=== PATIENT | female | born 1965 | race Caucasian/White ===

== ENCOUNTER 2017-02-17 17:58 | Emergency (ER) | payer MEDICARE ==
[~2017-02-17] VITALS: Ht 167.6 cm; Wt 74.1 kg
[2017-02-17] MEDS ORDERED: EXCETAB80 PO (18:20)
[2017-02-17] MEDS ORDERED: ASPI81CH32 PO (18:20)
[2017-02-17] MEDS ORDERED: NITROGLYCERIN 0.4 MG SUBL TABLET SL PRN (18:30)
[2017-02-17 18:46] LABS: BASO # 0.1 K/mm3 (0.0-0.2); BASO % 0.9 % (0.0-1.0); EOS # 0.2 K/mm3 (0.0-0.50); EOS % 2.4 % (0.0-3.0); LARGE UNSTAINED CELL # 0.1 K/mm3 (0.0-0.4); LARGE UNSTAINED CELL % 1.2 % (0.0-4.0); LYMPH # 2.5 K/mm3 (1.5-4.5); LYMPH % 26.9 % (24.0-44.0); MEAN CORPUSCULAR HEMOGLOBIN 30.4 pg (27.0-33.0); MEAN CORPUSCULAR HGB CONC 34.9 g/dl (32.0-36.5); MEAN CORPUSCULAR VOLUME 87.1 fl (80.0-96.0); MONO # 0.5 K/mm3 (0.0-0.8); MONO % 5.3 % (0.0-5.0); NEUTROPHILS # 5.5 K/mm3 (1.8-7.7); NEUTROPHILS % 63.3 % (36.0-66.0); PLATELET COUNT, AUTOMATED 187 k/mm3 (150-450); RED CELL DISTRIBUTION WIDTH 12.6 % (11.5-14.5); WHITE BLOOD COUNT 8.7 K/mm3 (4.0-10.0)
[2017-02-17] MEDS ORDERED: ATOR40TA75 PO (19:05)
[2017-02-17] MEDS ORDERED: METF10004 PO (19:05)
[2017-02-17] MEDS ORDERED: PROAAER10 (19:05)
[2017-02-17] MEDS ORDERED: GABA-282 PO (19:05)
[2017-02-17] MEDS ORDERED: VICO5TAB16 PO (19:06)
[2017-02-17] MEDS ORDERED: INSUDET SC (19:06)
[2017-02-17 19:09] LABS: ALBUMIN 3.8 GM/DL (3.2-5.2); ALBUMIN/GLOBULIN RATIO 1.15 (1.00-1.93); ALKALINE PHOSPHATASE 148 U/L (45-117); ALT/SGPT 26 U/L (12-78); ANION GAP 9 MEQ/L (8-16); AST/SGOT 10 U/L (15-37); BILIRUBIN,DIRECT < 0.1 MG/DL (0.0-0.2); BILIRUBIN,TOTAL 0.3 MG/DL (0.2-1.0); BLOOD UREA NITROGEN 18 MG/DL (7-18); CALCIUM LEVEL 8.9 MG/DL (8.5-10.1); CARBON DIOXIDE LEVEL 28 MEQ/L (21-32); CHLORIDE LEVEL 102 MEQ/L (98-107); CREATININE FOR GFR 0.82 MG/DL (0.55-1.02); GLOMERULAR FILTRATION RATE > 60.0 (>51); GLUCOSE, FASTING 244 MG/DL (70-105); SODIUM LEVEL 139 MEQ/L (136-145); TOTAL PROTEIN 7.1 GM/DL (6.4-8.2)
[2017-02-17] MEDS ORDERED: ISOVUE-370 76% 100ML VIAL (Q9967) As Ordered ONE (20:03)
[2017-02-17] MEDS ORDERED: ASPIRIN 81 MG CHEW TABLET PO ONE (20:15)
--- NOTE | 2017-02-17 21:20 | REPUSA ---
CLINICAL HISTORY: Chest pain. TECHNIQUE: CT chest with IV contrast. Total DLP 593.9 mGy*cm COMPARISON: No pertinent prior studies are available at this time. CT CHEST WITH CONTRAST: Pulmonary arteries: Patent, without emboli. Lungs: No pneumothorax, infiltrate, masses or effusion. Heart: Normal size. No significant effusion. Aorta: Normal caliber, without aneurysm or dissection. Mediastinum and maria teresa: No lymphadenopathy. Bony thorax: No acute findings. Spinal stimulator noted that thoracic spine. Limited upper abdomen: No acute findings. IMPRESSION: No evidence of pulmonary embolism. No acute thoracic process.
[2017-02-17 22:52] VITALS: BP 95/50
--- NOTE | 2017-02-18 07:54 | REP ---
Portable chest, 06:21 p.m., single AP view, patient sitting: Comparisons 04/11/2015. The lung vargas are clear. The cardiac size is normal. The maria teresa, mediastinum, and bony thorax are unremarkable. Impression: Negative portable chest. A spinal stimulator is incidentally noted at the mid thoracic level. Signed by Joe Echevarria MD 02/18/2017 07:45 A
--- NOTE | 2017-02-18 20:23 | ECGEPIP ---
Stationary ECG Study [facility] - ED Test Date: 2017-02-17 Pat Name: VISHAL PAZ Department: Room: - Gender: F Medical Detailist: RENETTA : 1965 Requested By: Rosamaria Hull Order Number: [id number] Reading MD: Rosamaria Hull Measurements Intervals [place] Rate: 85 P: 52 MT: 163 QRS: 49 QRSD: 90 T: 61 QT: 355 QTc: 423 Interpretive Statements SINUS RHYTHM NO PRIOR FOR COMPARISON Electronically Signed On 02-18-2017 20:22:42 EDT by Rosamaria Hull
== END 2017-02-17 23:54 | disposition home or self-care (01) ==
LOC: M ED 19:25
DX: R07.9 Chest pain, unspecified (principal); E11.9 Type 2 diabetes mellitus without complications; E78.5 Hyperlipidemia, unspecified; G89.29 Other chronic pain; F17.200 Nicotine dependence, unspecified, uncomplicated; Z98.1 Arthrodesis status; Z96.9 Presence of functional implant, unspecified; Z82.49 Family history of ischemic heart disease and other diseases of the circulatory system; Z79.4 Long term (current) use of insulin; Z79.82 Long term (current) use of aspirin; Z88.2 Allergy status to sulfonamides; Z88.8 Allergy status to other drugs, medicaments and biological substances; Z91.040 Latex allergy status
CPT/HCPCS: 36415; 71010; 71275; 80048; 80076; 82550; 82553; 82948; 83690; 83880; 84443; 84484; 85025; 93005; 93041; 94760; 99285; G0463; Q9967

== ENCOUNTER → 2017-12-03 | Outpatient (CLI) | payer MEDICARE | LOC: M LRY 10:29 | DX: S69.92XA Unspecified injury of left wrist, hand and finger(s), initial encounter (principal); X58.XXXA Exposure to other specified factors, initial encounter; Y92.9 Unspecified place or not applicable; Y93.9 Activity, unspecified | CPT/HCPCS: 73110; G0463 ==

== ENCOUNTER 2018-01-29 19:56 | Emergency (ER) | payer MEDICARE ==
[2018-01-29 21:16] LABS: APPEARANCE, URINE HAZY (CLEAR); BACTERIA, URINE AUTO 1+ (NEGATIVE); BILIRUBIN, URINE AUTO NEGATIVE (NEGATIVE); BLOOD, URINE BLOOD NEGATIVE (NEGATIVE); COLOR, URINE YELLOW (YELLOW); GLUCOSE, URINE (UA) AUTO 3+ mg/dL (NEGATIVE); KETONE, URINE AUTO NEGATIVE (NEGATIVE); LEUKOCYTE ESTERASE, URINE AUTO TRACE (NEGATIVE); MUCUS, URINE SMALL (NEGATIVE); NITRITE, URINE AUTO NEGATIVE (NEGATIVE); PROTEIN, URINE AUTO NEGATIVE (NEGATIVE); RBC, URINE AUTO 2 /HPF (0-3); SPECIFIC GRAVITY URINE AUTO 1.015 (1.002-1.035); SQUAMOUS EPITHELIAL CELL UR AU 3 /HPF (0-6); WBC, URINE AUTO 1 /HPF (0-3)
[2018-01-29] MEDS: ONDANSETRON 4MG/2ML VIAL (J2405) IV (21:34)
[2018-01-29] MEDS: NS 1,000 ML IV (21:34)
[2018-01-29 21:44] LABS: BASO % 0.3 % (0.0-1.0); EOS # 0.1 10^3/uL (0.0-0.50); EOS % 0.8 % (0.0-3.0); HEMATOCRIT 40.7 % (36.0-47.0); HEMOGLOBIN 14.1 g/dl (12.0-15.5); IMMATURE GRANULOCYTE % 0.3 % (0-3.0); LYMPH # 2.4 10^3/uL (1.5-4.5); LYMPH % 20.3 % (24.0-44.0); MEAN CORPUSCULAR HEMOGLOBIN 29.6 pg (27.0-33.0); MEAN CORPUSCULAR HGB CONC 34.6 g/dl (32.0-36.5); MEAN CORPUSCULAR VOLUME 85.3 fl (80.0-96.0); MONO # 0.8 10^3/uL (0.0-0.8); MONO % 7.1 % (0.0-5.0); NEUTROPHILS # 8.3 10^3/uL (1.8-7.7); NEUTROPHILS % 71.2 % (36.0-66.0); PLATELET COUNT, AUTOMATED 161 10^3/uL (150-450); RED BLOOD COUNT 4.77 10^6/uL (4.00-5.40); RED CELL DISTRIBUTION WIDTH 11.9 % (11.5-14.5); WHITE BLOOD COUNT 11.6 10^3/uL (4.0-10.0)
[2018-01-29 22:01] LABS: ANION GAP 5 MEQ/L (8-16); BLOOD UREA NITROGEN 13 MG/DL (7-18); C REACTIVE PROTEIN QUANTITATIV 5.42 MG/DL (0.00-0.30); CARBON DIOXIDE LEVEL 28 MEQ/L (21-32); CHLORIDE LEVEL 106 MEQ/L (98-107); CREATININE FOR GFR 0.77 MG/DL (0.55-1.30); GLOMERULAR FILTRATION RATE > 60.0 (>51); GLUCOSE, FASTING 188 MG/DL (70-100); POTASSIUM SERUM 3.7 MEQ/L (3.5-5.1); SODIUM LEVEL 139 MEQ/L (136-145)
[2018-01-29 22:08] LABS: ERYTHROCYTE SEDIMENTATION RATE 26 mm/hr (0-30)
[2018-01-29] MEDS ORDERED: LIDOCAINE 1% MDV 20ML VIAL As Ordered (22:16)
[2018-01-29] MEDS: LIDOCAINE 1% MDV 20ML VIAL SC (22:19)
[2018-01-29] MEDS: cefTRIAXone SOD 1 GM in D5W MINI-BAG PLUS 50 ML IV (23:03)
[2018-01-29] MEDS: ADACEL/BOOSTRIX VACCINE (DIPHTH/PERTUSS/ACELL/TETANUS)0.5ML SYR (90715) IM (23:05)
== END 2018-01-29 23:37 | disposition home or self-care (01) ==
LOC: M ED 19:56
DX: L02.612 Cutaneous abscess of left foot (principal); S90.852A Superficial foreign body, left foot, initial encounter; X58.XXXA Exposure to other specified factors, initial encounter; Y92.89 Other specified places as the place of occurrence of the external cause; E11.9 Type 2 diabetes mellitus without complications; F17.200 Nicotine dependence, unspecified, uncomplicated; Z88.8 Allergy status to other drugs, medicaments and biological substances; Z88.2 Allergy status to sulfonamides; Z91.040 Latex allergy status; Z79.82 Long term (current) use of aspirin
CPT/HCPCS: 90715

== ENCOUNTER → 2018-01-30 | Outpatient (REF) | payer MEDICARE | LOC: M LAB REF 17:11 | DX: L03.116 Cellulitis of left lower limb (principal) ==

== ENCOUNTER 2018-02-01 23:52 | Inpatient (IN) | payer MEDICARE ==
[2018-02-02 00:58] LABS: HEMATOCRIT 38.4 % (36.0-47.0); HEMOGLOBIN 13.2 g/dl (12.0-15.5); MEAN CORPUSCULAR HEMOGLOBIN 29.3 pg (27.0-33.0); MEAN CORPUSCULAR HGB CONC 34.4 g/dl (32.0-36.5); MEAN CORPUSCULAR VOLUME 85.1 fl (80.0-96.0); PLATELET COUNT, AUTOMATED 190 10^3/uL (150-450); RED BLOOD COUNT 4.51 10^6/uL (4.00-5.40); RED CELL DISTRIBUTION WIDTH 11.7 % (11.5-14.5); WHITE BLOOD COUNT 9.2 10^3/uL (4.0-10.0)
[2018-02-02] MEDS: MORPHINE 4 MG/ML 1ML VIAL/SYRINGE (J2270) IV ×3 (01:03→23:16)
[2018-02-02] MEDS: ONDANSETRON 4MG/2ML VIAL (J2405) IV (01:04)
[2018-02-02] MEDS: VANCOMYCIN HCL 1,000 MG, VIAL MATE ADAPTER 1 EACH in D5W 250 ML IV ×2 (01:04→12:19)
[2018-02-02 01:23] LABS: ERYTHROCYTE SEDIMENTATION RATE 58 mm/hr (0-30)
[2018-02-02 01:26] LABS: ANION GAP 6 MEQ/L (8-16); BLOOD UREA NITROGEN 13 MG/DL (7-18); C REACTIVE PROTEIN QUANTITATIV 6.68 MG/DL (0.00-0.30); CALCIUM LEVEL 9.1 MG/DL (8.5-10.1); CARBON DIOXIDE LEVEL 27 MEQ/L (21-32); CHLORIDE LEVEL 104 MEQ/L (98-107); GLOMERULAR FILTRATION RATE > 60.0 (>51); GLUCOSE, FASTING 231 MG/DL (70-100); POTASSIUM SERUM 3.7 MEQ/L (3.5-5.1); SODIUM LEVEL 137 MEQ/L (136-145)
[2018-02-02] MEDS ORDERED: GLUCOSE 4 GM CHEW TABLET PO (02:15)
[2018-02-02] MEDS ORDERED: GLUCAGON FOR INJ 1 MG VIAL (J1610) SC (02:15)
[2018-02-02] MEDS ORDERED: DEXTROSE 50% 50 ML SYRINGE IV (02:15)
[2018-02-02] MEDS: NS 1,000 ML IV ×2 (04:21→12:19)
[2018-02-02] MEDS: PIPERACILLIN/TAZOBACTAM SOD 3.375 GM in D5W MINI-BAG PLUS 50 ML IV ×4 (04:21→22:05)
[2018-02-02] MEDS: ACETAMINOPHEN TAB 650MG DOSE (2X325MG) PO ×2 (04:47→11:06)
[2018-02-02 06:47] LABS: BEDSIDE GLUCOSE 202 MG/DL (70-105)
[2018-02-02] MEDS: HumaLOG INSULIN (NovoLOG) PER UNIT SC ×3 (07:30→17:30)
[2018-02-02] MEDS: LEVEMIR (INSULIN DETEMIR) 1 UNITS/0.01ML SC ×2 (07:44→22:07)
[2018-02-02] MEDS ORDERED: MIDAZOLAM INJ 2 MG/2 ML VIAL (J2250) As Ordered (08:38)
[2018-02-02] MEDS ORDERED: fentaNYL 100 MCG/2 ML INJECTION (J3010) As Ordered (08:38)
[2018-02-02] MEDS ORDERED: PROPOFOL 200 MG/20 ML VIAL As Ordered (08:38)
[2018-02-02] MEDS ORDERED: LIDOCAINE 2% INJ 100 MG/5 ML SDV (FOR ANES.) As Ordered (08:38)
[2018-02-02] MEDS ORDERED: ONDANSETRON 4MG/2ML VIAL (J2405) As Ordered (08:38)
[2018-02-02] MEDS: BUPIVACAINE HCL 0.5% 10 ML VIAL As Ordered (08:39)
[2018-02-02] MEDS: LIDOCAINE 1% MDV 20ML VIAL As Ordered (08:39)
[2018-02-02] MEDS ORDERED: PHENYLEPHRINE INJ 10MG/ML VIAL (J2370) As Ordered (08:42)
[2018-02-02] MEDS: ENOXAPARIN 40 MG/0.4 ML SYRINGE (J1650) SC (09:00)
[2018-02-02] MEDS ORDERED: fentaNYL 100 MCG/2 ML INJECTION (J3010) IV (09:45)
[2018-02-02] MEDS ORDERED: ONDANSETRON 4MG/2ML VIAL (J2405) IV (09:45)
[2018-02-02] MEDS: LR 1,000 ML IV (09:45)
[2018-02-02] MEDS ORDERED: NORCO, ANEXSIA 5/325MG TABLET (HYDROcodone/ACETAMINOPHEN) PO (09:45)
[2018-02-02 11:14] LABS: BEDSIDE GLUCOSE 197 MG/DL (70-105)
[2018-02-02] MEDS: PERCOCET 5MG/325MG TAB PO ×3 (15:25→22:06)
[2018-02-02] MEDS: NICOTINE 14 MG/24 HR TRANSDERMAL TD (16:00)
[2018-02-02 17:12] LABS: BEDSIDE GLUCOSE 195 MG/DL (70-105)
[2018-02-02 19:46] LABS: BEDSIDE GLUCOSE 134 MG/DL (70-105)
[2018-02-03] MEDS: VANCOMYCIN HCL 1,000 MG, VIAL MATE ADAPTER 1 EACH in D5W 250 ML IV ×2 (01:31→14:58)
[2018-02-03] MEDS: PIPERACILLIN/TAZOBACTAM SOD 3.375 GM in D5W MINI-BAG PLUS 50 ML IV ×4 (02:38→20:00)
[2018-02-03] MEDS: PERCOCET 5MG/325MG TAB PO ×3 (02:40→20:01)
[2018-02-03 06:35] LABS: HEMATOCRIT 35.2 % (36.0-47.0); HEMOGLOBIN 12.2 g/dl (12.0-15.5); MEAN CORPUSCULAR HEMOGLOBIN 29.5 pg (27.0-33.0); MEAN CORPUSCULAR HGB CONC 34.7 g/dl (32.0-36.5); PLATELET COUNT, AUTOMATED 177 10^3/uL (150-450); RED BLOOD COUNT 4.14 10^6/uL (4.00-5.40); RED CELL DISTRIBUTION WIDTH 11.6 % (11.5-14.5)
[2018-02-03 06:53] LABS: ANION GAP 5 MEQ/L (8-16); BLOOD UREA NITROGEN 10 MG/DL (7-18); C REACTIVE PROTEIN QUANTITATIV 7.13 MG/DL (0.00-0.30); CALCIUM LEVEL 9.1 MG/DL (8.5-10.1); CARBON DIOXIDE LEVEL 30 MEQ/L (21-32); CHLORIDE LEVEL 105 MEQ/L (98-107); CREATININE FOR GFR 0.76 MG/DL (0.55-1.30); GLOMERULAR FILTRATION RATE > 60.0 (>51); GLUCOSE, FASTING 139 MG/DL (70-100); POTASSIUM SERUM 3.8 MEQ/L (3.5-5.1); SODIUM LEVEL 140 MEQ/L (136-145)
[2018-02-03 07:07] LABS: ERYTHROCYTE SEDIMENTATION RATE 58 mm/hr (0-30)
[2018-02-03] MEDS: HumaLOG INSULIN (NovoLOG) PER UNIT SC ×3 (08:31→17:19)
[2018-02-03 08:50] LABS: BEDSIDE GLUCOSE 137 MG/DL (70-105)
[2018-02-03] MEDS: ENOXAPARIN 40 MG/0.4 ML SYRINGE (J1650) SC (10:42)
[2018-02-03] MEDS: LEVEMIR (INSULIN DETEMIR) 1 UNITS/0.01ML SC ×2 (10:42→20:04)
[2018-02-03] MEDS: NICOTINE 14 MG/24 HR TRANSDERMAL TD (10:43)
[2018-02-03] MEDS: NICOTINE 21MG/24HR 1 EA TRANSDERMAL TD (11:44)
[2018-02-03 12:20] LABS: BEDSIDE GLUCOSE 187 MG/DL (70-105)
[2018-02-03 12:47] LABS: VANCOMYCIN LEVEL TROUGH 10.8 UG/ML (10.0-20.0)
[2018-02-03] MEDS: VANCOMYCIN HCL 500 MG in D5W MINI-BAG PLUS 100 ML IV (15:59)
[2018-02-03 16:52] LABS: BEDSIDE GLUCOSE 153 MG/DL (70-105)
[2018-02-03 20:16] LABS: BEDSIDE GLUCOSE 78 MG/DL (70-105)
[2018-02-04] MEDS: PERCOCET 5MG/325MG TAB PO (01:34)
[2018-02-04] MEDS: VANCOMYCIN HCL 1,000 MG, VIAL MATE ADAPTER 1 EACH in D5W 250 ML IV (01:36)
[2018-02-04] MEDS: PIPERACILLIN/TAZOBACTAM SOD 3.375 GM in D5W MINI-BAG PLUS 50 ML IV ×2 (02:44→08:39)
[2018-02-04 05:56] LABS: HEMATOCRIT 38.6 % (36.0-47.0); HEMOGLOBIN 13.1 g/dl (12.0-15.5); MEAN CORPUSCULAR HEMOGLOBIN 29.1 pg (27.0-33.0); MEAN CORPUSCULAR HGB CONC 33.9 g/dl (32.0-36.5); MEAN CORPUSCULAR VOLUME 85.8 fl (80.0-96.0); PLATELET COUNT, AUTOMATED 221 10^3/uL (150-450); RED CELL DISTRIBUTION WIDTH 11.6 % (11.5-14.5); WHITE BLOOD COUNT 6.8 10^3/uL (4.0-10.0)
[2018-02-04 06:11] LABS: ANION GAP 7 MEQ/L (8-16); BLOOD UREA NITROGEN 13 MG/DL (7-18); CALCIUM LEVEL 9.2 MG/DL (8.5-10.1); CARBON DIOXIDE LEVEL 31 MEQ/L (21-32); CHLORIDE LEVEL 103 MEQ/L (98-107); CREATININE FOR GFR 0.85 MG/DL (0.55-1.30); GLOMERULAR FILTRATION RATE > 60.0 (>51); GLUCOSE, FASTING 169 MG/DL (70-100); SODIUM LEVEL 141 MEQ/L (136-145)
[2018-02-04 06:33] LABS: ERYTHROCYTE SEDIMENTATION RATE 60 mm/hr (0-30)
[2018-02-04] MEDS: ENOXAPARIN 40 MG/0.4 ML SYRINGE (J1650) SC (08:37)
[2018-02-04] MEDS: HumaLOG INSULIN (NovoLOG) PER UNIT SC (08:38)
[2018-02-04] MEDS: NICOTINE 21MG/24HR 1 EA TRANSDERMAL TD (08:39)
[2018-02-04] MEDS: LEVEMIR (INSULIN DETEMIR) 1 UNITS/0.01ML SC (08:39)
[2018-02-04 11:38] LABS: BEDSIDE GLUCOSE 125 MG/DL (70-105)
== END 2018-02-04 13:55 | disposition home or self-care (01) | DRG 603 ==
LOC: M ED 23:52 → M ED INP 02-02 02:10 → M MS5PR 02-02 04:00
PROC: 0H9MXZZ Drainage of Right Foot Skin, External Approach (ICD-10-PCS; principal; 2018-02-02 08:29)
DX: L03.116 Cellulitis of left lower limb (principal); E11.65 Type 2 diabetes mellitus with hyperglycemia; F17.210 Nicotine dependence, cigarettes, uncomplicated; B95.61 Methicillin susceptible Staphylococcus aureus infection as the cause of diseases classified elsewhere; B95.2 Enterococcus as the cause of diseases classified elsewhere; Z91.040 Latex allergy status; Z88.2 Allergy status to sulfonamides; Z79.84 Long term (current) use of oral hypoglycemic drugs; Z88.8 Allergy status to other drugs, medicaments and biological substances

== ENCOUNTER → 2018-02-14 | Outpatient (REF) | payer MEDICARE ==
[2018-02-14 19:08] LABS: ESTIMATED AVERAGE GLUCOSE 237 MG/DL (60-110); HEMOGLOBIN A1c 9.9 %
[2018-02-14 19:30] LABS: CREATININE, URINE 95.3 MG/DL; MALB URINE SIEMENS 12.7 MG/L; MAU/CREAT RATIO 13.3 MCG/MG (0.0-30.0)
== END ==
LOC: M SFHCPLAZ 15:24
DX: R73.9 Hyperglycemia, unspecified (principal)
CPT/HCPCS: 83036

== ENCOUNTER → 2018-02-24 | Outpatient (CLI) | payer MEDICARE | LOC: M CARPUL 14:06 | DX: F17.200 Nicotine dependence, unspecified, uncomplicated (principal) | CPT/HCPCS: 94060 ==

== ENCOUNTER → 2018-03-21 | Outpatient (REF) | payer MEDICARE ==
[2018-03-21 12:50] LABS: CHOLESTEROL LEVEL 252 MG/DL (<200); HDL CHOLESTEROL 40 MG/DL (>40); LDL CHOLESTEROL 170 MG/DL (<100); NON-HDL-C 212 MG/DL; TRIGLYCERIDES LEVEL 209 MG/DL (<150)
[2018-03-24 14:17] LABS: C-PEPTIDE 4.2 ng/mL (1.1-4.4)
[2018-03-24 14:17] LABS: GAD-65 AUTOANTIBODY <5.0 U/mL (0.0-5.0)
== END ==
LOC: M SFHCPLAZ 07:58
DX: R73.9 Hyperglycemia, unspecified (principal)
CPT/HCPCS: 80061

== ENCOUNTER 2018-03-28 17:29 | Emergency (ER) | payer MEDICARE ==
[2018-03-28] MEDS: METOCLOPRAMIDE INJ 10MG/2ML VIAL (J2765) IV (21:49)
[2018-03-28] MEDS: KETOROLAC 30 MG/ML VIAL (J1885) IV (21:49)
[2018-03-28 21:54] LABS: BASO % 0.1 % (0.0-1.0); EOS # 0.2 10^3/uL (0.0-0.50); EOS % 2.7 % (0.0-3.0); HEMATOCRIT 35.7 % (36.0-47.0); HEMOGLOBIN 12.2 g/dl (12.0-15.5); IMMATURE GRANULOCYTE % 0.1 % (0-3.0); LYMPH # 2.2 10^3/uL (1.5-4.5); LYMPH % 32.9 % (24.0-44.0); MEAN CORPUSCULAR HEMOGLOBIN 29.5 pg (27.0-33.0); MEAN CORPUSCULAR HGB CONC 34.2 g/dl (32.0-36.5); MEAN CORPUSCULAR VOLUME 86.2 fl (80.0-96.0); MONO # 0.5 10^3/uL (0.0-0.8); NEUTROPHILS # 3.8 10^3/uL (1.8-7.7); NEUTROPHILS % 57.2 % (36.0-66.0); PLATELET COUNT, AUTOMATED 216 10^3/uL (150-450); RED BLOOD COUNT 4.14 10^6/uL (4.00-5.40); RED CELL DISTRIBUTION WIDTH 12.5 % (11.5-14.5); WHITE BLOOD COUNT 6.7 10^3/uL (4.0-10.0)
[2018-03-28 22:23] LABS: ANION GAP 6 MEQ/L (8-16); BLOOD UREA NITROGEN 11 MG/DL (7-18); C REACTIVE PROTEIN QUANTITATIV 0.62 MG/DL (0.00-0.30); CALCIUM LEVEL 8.5 MG/DL (8.5-10.1); CARBON DIOXIDE LEVEL 29 MEQ/L (21-32); CHLORIDE LEVEL 108 MEQ/L (98-107); CREATININE FOR GFR 0.65 MG/DL (0.55-1.30); GLOMERULAR FILTRATION RATE > 60.0 (>51); GLUCOSE, FASTING 195 MG/DL (70-100); POTASSIUM SERUM 3.6 MEQ/L (3.5-5.1); SODIUM LEVEL 143 MEQ/L (136-145)
[2018-03-28 22:40] LABS: ERYTHROCYTE SEDIMENTATION RATE 27 mm/hr (0-30)
== END 2018-03-28 23:50 | disposition home or self-care (01) ==
LOC: M ED 17:29
DX: L03.116 Cellulitis of left lower limb (principal); R51 Headache; E11.9 Type 2 diabetes mellitus without complications; J45.909 Unspecified asthma, uncomplicated; J44.9 Chronic obstructive pulmonary disease, unspecified; Z87.442 Personal history of urinary calculi; Z87.39 Personal history of other diseases of the musculoskeletal system and connective tissue; Z79.82 Long term (current) use of aspirin; Z79.84 Long term (current) use of oral hypoglycemic drugs; Z79.899 Other long term (current) drug therapy; Z91.040 Latex allergy status; Z88.2 Allergy status to sulfonamides; Z88.8 Allergy status to other drugs, medicaments and biological substances; Z88.1 Allergy status to other antibiotic agents; Z88.6 Allergy status to analgesic agent
CPT/HCPCS: J1885

== ENCOUNTER 2018-04-11 13:33 | Emergency (ER) | payer MEDICARE ==
[2018-04-11] MEDS: NS 1,000 ML IV ×2 (15:18→18:00)
[2018-04-11] MEDS: MORPHINE 2 MG/ML 1ML SYRINGE (J2270) IV (15:19)
[2018-04-11] MEDS: ONDANSETRON 4MG/2ML VIAL (J2405) IV (15:19)
[2018-04-11 15:44] LABS: BASO % 0.5 % (0.0-1.0); EOS # 0.1 10^3/uL (0.0-0.50); EOS % 1.6 % (0.0-3.0); HEMATOCRIT 35.9 % (36.0-47.0); HEMOGLOBIN 12.1 g/dl (12.0-15.5); IMMATURE GRANULOCYTE % 0.4 % (0-3.0); LYMPH # 1.9 10^3/uL (1.5-4.5); LYMPH % 25.6 % (24.0-44.0); MEAN CORPUSCULAR HEMOGLOBIN 29.2 pg (27.0-33.0); MEAN CORPUSCULAR HGB CONC 33.7 g/dl (32.0-36.5); MEAN CORPUSCULAR VOLUME 86.5 fl (80.0-96.0); MONO # 0.4 10^3/uL (0.0-0.8); MONO % 5.8 % (0.0-5.0); NEUTROPHILS % 66.1 % (36.0-66.0); PLATELET COUNT, AUTOMATED 213 10^3/uL (150-450); RED BLOOD COUNT 4.15 10^6/uL (4.00-5.40); RED CELL DISTRIBUTION WIDTH 12.5 % (11.5-14.5); WHITE BLOOD COUNT 7.6 10^3/uL (4.0-10.0)
[2018-04-11 15:56] LABS: ALBUMIN 3.8 GM/DL (3.2-5.2); ALBUMIN/GLOBULIN RATIO 1.23 (1.00-1.93); ALKALINE PHOSPHATASE 145 U/L (45-117); ALT/SGPT 19 U/L (12-78); ANION GAP 7 MEQ/L (8-16); AST/SGOT 12 U/L (7-37); BILIRUBIN,DIRECT 0.1 MG/DL (0.0-0.2); BILIRUBIN,TOTAL 0.4 MG/DL (0.2-1.0); BLOOD UREA NITROGEN 16 MG/DL (7-18); CALCIUM LEVEL 9.4 MG/DL (8.5-10.1); CARBON DIOXIDE LEVEL 28 MEQ/L (21-32); CHLORIDE LEVEL 105 MEQ/L (98-107); GLOMERULAR FILTRATION RATE > 60.0 (>51); GLUCOSE, FASTING 145 MG/DL (70-100); LIPASE 132 U/L (73-393); POTASSIUM SERUM 4.5 MEQ/L (3.5-5.1); SODIUM LEVEL 140 MEQ/L (136-145); TOTAL PROTEIN 6.9 GM/DL (6.4-8.2)
[2018-04-11 15:57] LABS: LACTIC ACID SEPSIS PROTOCOL 0.5 MMOL/L (0.4-2.0)
[2018-04-11] MEDS: GASTROGRAFIN SOLUTION 30ML PO ×2 (15:57→16:30)
[2018-04-11] MEDS ORDERED: ISOVUE-370 76% 100ML VIAL (Q9967) As Ordered (17:12)
== END 2018-04-11 19:11 | disposition home or self-care (01) ==
LOC: M ED 13:33
DX: C48.2 Malignant neoplasm of peritoneum, unspecified (principal); E11.9 Type 2 diabetes mellitus without complications; F17.220 Nicotine dependence, chewing tobacco, uncomplicated
CPT/HCPCS: Q9963

== ENCOUNTER → 2018-04-15 | Outpatient (REF) | payer MEDICARE ==
[2018-04-15 15:12] LABS: CA19-9 TUMOR MARKER,CARBOHYDRA < 1.2 U/ML (<35.0)
[2018-04-15 15:12] LABS: CA 125 819.6 U/ML (<30.2)
== END ==
LOC: M SFHCPLAZ 10:18
DX: C80.1 Malignant (primary) neoplasm, unspecified (principal); C78.6 Secondary malignant neoplasm of retroperitoneum and peritoneum; Z79.82 Long term (current) use of aspirin; Z79.899 Other long term (current) drug therapy; Z79.84 Long term (current) use of oral hypoglycemic drugs; E11.9 Type 2 diabetes mellitus without complications; E78.5 Hyperlipidemia, unspecified; J44.9 Chronic obstructive pulmonary disease, unspecified; F41.9 Anxiety disorder, unspecified
CPT/HCPCS: 82378

== ENCOUNTER → 2018-04-16 | Outpatient (CLI) | payer MEDICARE ==
[~2018-04-16] MED LIST: ISOVUE-370 76% 100ML VIAL (Q9967) As Ordered
== END ==
LOC: M RAD 17:12
DX: C80.1 Malignant (primary) neoplasm, unspecified (principal); K76.0 Fatty (change of) liver, not elsewhere classified; Z88.1 Allergy status to other antibiotic agents; Z88.5 Allergy status to narcotic agent; Z91.040 Latex allergy status; Z96.89 Presence of other specified functional implants
CPT/HCPCS: Q9967

== ENCOUNTER 2018-04-17 11:38 | Day surgery (SDC) | payer MEDICARE ==
[2018-04-17] MEDS: NS 1,000 ML IV ×2 (06:00)
[2018-04-17] MEDS ORDERED: PROPOFOL 200 MG/20 ML VIAL As Ordered ×6 (12:05→13:31)
[2018-04-17] MEDS ORDERED: LIDOCAINE 2% INJ 100 MG/5 ML SDV (FOR ANES.) As Ordered ×2 (12:05)
[2018-04-17] MEDS ORDERED: fentaNYL 100 MCG/2 ML INJECTION (J3010) As Ordered ×2 (12:05)
== END 2018-04-17 14:40 | disposition home or self-care (01) ==
LOC: M OPP 14:40
DX: R93.3 Abnormal findings on diagnostic imaging of other parts of digestive tract (principal); R10.30 Lower abdominal pain, unspecified; C80.1 Malignant (primary) neoplasm, unspecified; K59.00 Constipation, unspecified; R19.4 Change in bowel habit; R11.2 Nausea with vomiting, unspecified; Q43.8 Other specified congenital malformations of intestine; K29.70 Gastritis, unspecified, without bleeding; R07.89 Other chest pain; I10 Essential (primary) hypertension; E78.5 Hyperlipidemia, unspecified; E11.9 Type 2 diabetes mellitus without complications; M19.90 Unspecified osteoarthritis, unspecified site; G62.9 Polyneuropathy, unspecified; R51 Headache; Z97.8 Presence of other specified devices; Z78.0 Asymptomatic menopausal state; J45.909 Unspecified asthma, uncomplicated; J44.9 Chronic obstructive pulmonary disease, unspecified; L97.529 Non-pressure chronic ulcer of other part of left foot with unspecified severity; L03.116 Cellulitis of left lower limb; F17.210 Nicotine dependence, cigarettes, uncomplicated; Z88.1 Allergy status to other antibiotic agents; Z91.040 Latex allergy status; Z88.2 Allergy status to sulfonamides; Z79.82 Long term (current) use of aspirin; Z79.84 Long term (current) use of oral hypoglycemic drugs; Z79.899 Other long term (current) drug therapy
CPT/HCPCS: 45378

== ENCOUNTER → 2018-04-17 | Outpatient (CLI) | payer MEDICARE ==
[2018-04-17 15:02] LABS: INR 1.06; PROTHROMBIN TIME 13.9 SECONDS (12.1-14.4)
[2018-04-17 15:03] LABS: PARTIAL THROMBOPLASTIN TIME 29.2 SECONDS (25.4-37.6)
== END ==
LOC: M LAB 08:00
DX: R93.3 Abnormal findings on diagnostic imaging of other parts of digestive tract (principal); C80.1 Malignant (primary) neoplasm, unspecified (principal)

== ENCOUNTER → 2018-04-18 | Outpatient (CLI) | payer MEDICARE ==
[~2018-04-18] MED LIST changes: -ISOVUE-370 76% 100ML VIAL (Q9967) As Ordered; +LIQUID POLIBAR PLUS 105% w/v 1900ML BTL As Ordered
== END ==
LOC: M RAD 09:09
DX: R93.3 Abnormal findings on diagnostic imaging of other parts of digestive tract (principal); K59.00 Constipation, unspecified
CPT/HCPCS: 74280

== ENCOUNTER → 2018-04-21 | Outpatient (CLI) | payer MEDICARE ==
[~2018-04-21] MED LIST changes: +GASTROGRAFIN SOLUTION 30ML (Q9963) As Ordered; -LIQUID POLIBAR PLUS 105% w/v 1900ML BTL As Ordered
== END ==
LOC: M RAD 16:19
DX: C80.1 Malignant (primary) neoplasm, unspecified (principal)

== ENCOUNTER → 2018-04-23 | Outpatient (CLI) | payer MEDICARE ==
[~2018-04-23] MED LIST changes: -GASTROGRAFIN SOLUTION 30ML (Q9963) As Ordered; +LIDOCAINE 1% MDV 20ML VIAL As Ordered
== END ==
LOC: M RADPRO 07:08
DX: C48.2 Malignant neoplasm of peritoneum, unspecified (principal); C78.6 Secondary malignant neoplasm of retroperitoneum and peritoneum; E11.9 Type 2 diabetes mellitus without complications; E78.5 Hyperlipidemia, unspecified; J44.9 Chronic obstructive pulmonary disease, unspecified; E55.9 Vitamin D deficiency, unspecified; F17.210 Nicotine dependence, cigarettes, uncomplicated; F41.9 Anxiety disorder, unspecified; Z79.82 Long term (current) use of aspirin; Z79.899 Other long term (current) drug therapy; Z79.891 Long term (current) use of opiate analgesic; Z79.84 Long term (current) use of oral hypoglycemic drugs; Z88.8 Allergy status to other drugs, medicaments and biological substances; Z91.040 Latex allergy status
CPT/HCPCS: 49180

== ENCOUNTER → 2018-06-19 | Outpatient (REF) | payer MEDICARE ==
[~2018-06-19] MED LIST changes: +APAP500T10 PO; +ASPI81CH32 PO; +ATOR40TA75 PO; +CEPH500C PO; +CLEO300C2 PO; +EXCETAB80 PO; +GABA-843 PO; +IBUP-1114 PO; +INSUDET SC; +KEFL500C17 PO; -LIDOCAINE 1% MDV 20ML VIAL As Ordered; +METF10004 PO; +METF500T13 PO; +NORCOTAB PO; +OXYC1TAB23 PO; +PROAAER10; +VICO5TAB16 PO
[2018-06-19 18:57] LABS: BLOOD UREA NITROGEN 19 MG/DL (7-18); CALCIUM LEVEL 9.7 MG/DL (8.5-10.1); CARBON DIOXIDE LEVEL 31 MEQ/L (21-32); CHLORIDE LEVEL 96 MEQ/L (98-107); CREATININE FOR GFR 0.98 MG/DL (0.55-1.30); GLOMERULAR FILTRATION RATE > 60.0 (>51); POTASSIUM SERUM 4.1 MEQ/L (3.5-5.1); SODIUM LEVEL 135 MEQ/L (136-145)
[2018-06-19 18:58] LABS: GLUCOSE, FASTING 409 MG/DL (70-100)
[2018-06-19 19:37] LABS: HEMOGLOBIN A1c 10.5 %
== END ==
LOC: M SFHCPLAZ 14:50
DX: R73.9 Hyperglycemia, unspecified (principal); Z11.59 Encounter for screening for other viral diseases
CPT/HCPCS: 36415; 80048; 83036; 86803; G0463

== ENCOUNTER → 2018-10-15 | Outpatient (CLI) | payer MEDICARE ==
[~2018-10-15] MED LIST changes: -ASPI81CH32 PO; +ASPI81CH33 PO; +GASTROGRAFIN SOLUTION 30ML (Q9963) As Ordered ONE; +HYDR-3715 PO; +ISOVUE-370 76% 100ML VIAL (Q9967) As Ordered ONE; -NORCOTAB PO; -VICO5TAB16 PO; +VICO5TAB17 PO
--- NOTE | 2018-10-15 09:51 | REP ---
CT of the chest with IV contrast for ovarian carcinoma, post-treatment: Comparison is 04/16/2018. There is an epidural spinal stimulator, unchanged. There are no lung masses or nodules. There are no infiltrates. There are no pleural effusions. There is no mediastinal, hilar or axillary lymph node enlargement. The thoracic aorta is unremarkable. Cardiac size is normal. There is no pericardial effusion. There are no lytic, blastic or destructive skeletal changes. Impression: Epidural spinal stimulator, unchanged. Otherwise, negative CT study of the chest. No evidence of metastatic disease. There is no interval change. Electronically Signed by Joe Echevarria MD 10/15/2018 09:43 A
--- NOTE | 2018-10-15 10:04 | REP ---
CT of the abdomen and pelvis with IV and oral contrast for follow up of ovarian carcinoma, post-treatment: Comparison is 04/11/2018. The the hepatic parenchyma is homogeneous. The gallbladder, pancreas and spleen are unchanged and unremarkable. A calcified splenic granuloma is incidentally identified, unchanged. The adrenals are unremarkable. The kidneys are unremarkable except for focal renal cortical atrophy of the right renal mid pole, unchanged, likely sequela of prior pyelonephritis or renal infarct. There is mild bilateral hydronephrosis, unchanged. No hydroureter. This is unchanged. The abdominal aorta is unremarkable except for occasional calcified atheroma. There are a few normal-sized periaortic nodes. No periaortic lymph node enlargement. This is unchanged. Pelvis: The previous pattern of infiltrating enhancing inflammatory tissue in the peritoneal reflections, cul-de-sac and adjacent to the sigmoid colon in the right and left pelvis has resolved. The previous multiple enhancing peritoneal nodules have resolved. The The uterus has either become markedly atrophic in the interim or is now surgically absent. The adnexa are unremarkable. The bladder is unremarkable. There is no pelvic adenopathy. There is no ascites. The The there is a there is a spinal stimulator generator pack in the left gluteal subcutaneous soft tissues, unchanged. There are no lytic, blastic or destructive skeletal changes. Impression: The infiltrative pattern of inflammation and enhancing tissue in the peritoneal reflections and cul-de-sac on the previous study have resolved. The multiple peritoneal implants on the previous study have resolved. There is no lymph node enlargement. There is no ascites. No other changes from the prior study. Electronically Signed by Joe Echevarria MD 10/15/2018 09:56 A
== END ==
LOC: M RAD 07:02
PROVIDERS: ATTEND Obstetrics & Gynecology Gynecologic Oncology
DX: C56.9 Malignant neoplasm of unspecified ovary (principal); Z96.9 Presence of functional implant, unspecified
CPT/HCPCS: 71260; 74177; Q9963; Q9967

== ENCOUNTER → 2018-10-16 | Outpatient (REF) | payer MEDICARE ==
[~2018-10-16] MED LIST changes: -GASTROGRAFIN SOLUTION 30ML (Q9963) As Ordered ONE; -ISOVUE-370 76% 100ML VIAL (Q9967) As Ordered ONE
[2018-10-16 17:38] LABS: BLOOD UREA NITROGEN 13 MG/DL (7-18); CALCIUM LEVEL 9.3 MG/DL (8.5-10.1); CARBON DIOXIDE LEVEL 29 MEQ/L (21-32); CHLORIDE LEVEL 105 MEQ/L (98-107); CREATININE FOR GFR 0.76 MG/DL (0.55-1.30); GLOMERULAR FILTRATION RATE > 60.0 (>51); GLUCOSE, FASTING 236 MG/DL (70-100); POTASSIUM SERUM 4.3 MEQ/L (3.5-5.1); SODIUM LEVEL 140 MEQ/L (136-145)
[2018-10-16 17:55] LABS: HEMOGLOBIN A1c 7.9 %
== END ==
LOC: M SFHCPLAZ 14:03
PROVIDERS: ATTEND Family Medicine
DX: E11.65 Type 2 diabetes mellitus with hyperglycemia (principal)
CPT/HCPCS: 36415; 80048; 83036; G0463

== ENCOUNTER → 2018-10-29 | Outpatient (CLI) | payer MEDICARE ==
--- NOTE | 2018-10-29 16:22 | REP ---
CT study left foot without contrast: History: Left foot pain. Comparison radiographs March 28, 2018. Comparison CT study March 28, 2018. CT technique: Helical scanning is acquired. 3 mm axial images are generated and reviewed. CT findings: Ankylosis of the distal tibiofibular articulation is again noted unchanged from comparison study. There is tibiotalar osteoarthritic spurring. Chondrocalcinosis is noted medially in the tibiotalar articulation. This is unchanged as well. The subtalar joint is intact. There is plantar and Achilles calcaneal spurring. There is no evidence of soft tissue abscess or soft tissue gas. No acute bony erosive changes seen to suggest osteomyelitis based on CT. The plantar re-formation images show no additional abnormality. A there is less diffuse swelling than was present on March 28, 2018. 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 Heel spurring. No soft tissue gas or abscess seen. No bony tear destructive or erosive change noted. Diffuse osteopenia. Electronically Signed by Conner Wilson MD 10/29/2018 04:31 P
== END ==
LOC: M RAD 14:03
PROVIDERS: ATTEND Internal Medicine
DX: M24.672 Ankylosis, left ankle (principal); M19.072 Primary osteoarthritis, left ankle and foot; M77.32 Calcaneal spur, left foot; M85.862 Other specified disorders of bone density and structure, left lower leg

== ENCOUNTER 2018-11-24 09:25 | Outpatient (CLI) | payer MEDICARE ==
[~2018-11-24] VITALS: Ht 152.4 cm; Wt 68.5 kg
[2018-11-24 08:30] VITALS: BP 102/71
[~2018-11-24 09:25] MED LIST changes: +SODIUM CHLORIDE 0.9% INJ 10 ML SYR IV SCH
== END 2018-11-24 10:25 | disposition home or self-care (01) ==
LOC: M INFU 09:25
PROVIDERS: ATTEND Nurse Practitioner Family
DX: C57.00 Malignant neoplasm of unspecified fallopian tube (principal); Z92.21 Personal history of antineoplastic chemotherapy

== ENCOUNTER 2018-12-16 12:21 | Emergency (ER) | payer MEDICARE ==
[~2018-12-16] VITALS: Ht 167.6 cm; Wt 69.1 kg
[~2018-12-16 12:21] MED LIST changes: -SODIUM CHLORIDE 0.9% INJ 10 ML SYR IV SCH
[2018-12-16] MEDS ORDERED: GABA-843 (12:37)
[2018-12-16] MEDS ORDERED: LEVE1INJ5 SC (12:37)
[2018-12-16] MEDS ORDERED: HYDR-3713 PO (13:00)
[2018-12-16] MEDS ORDERED: MORPHINE 4 MG/ML 1ML VIAL/SYRINGE (J2270) IV ONE (13:15)
[2018-12-16] MEDS ORDERED: ONDANSETRON 4MG/2ML VIAL (J2405) IV ONE (13:15)
[2018-12-16 13:44] LABS: BASO % 0.2 % (0.0-1.0); EOS # 0.1 10^3/uL (0.0-0.50); EOS % 2.4 % (0.0-3.0); HEMATOCRIT 35.3 % (36.0-47.0); HEMOGLOBIN 11.8 g/dl (12.0-15.5); LYMPH # 1.9 10^3/uL (1.5-4.5); LYMPH % 33.6 % (24.0-44.0); MEAN CORPUSCULAR HEMOGLOBIN 31.9 pg (27.0-33.0); MEAN CORPUSCULAR HGB CONC 33.4 g/dl (32.0-36.5); MEAN CORPUSCULAR VOLUME 95.4 fl (80.0-96.0); MONO # 0.4 10^3/uL (0.0-0.8); MONO % 7.8 % (0.0-5.0); NEUTROPHILS # 3.1 10^3/uL (1.8-7.7); NEUTROPHILS % 55.8 % (36.0-66.0); PLATELET COUNT, AUTOMATED 145 10^3/uL (150-450); WHITE BLOOD COUNT 5.5 10^3/uL (4.0-10.0)
[2018-12-16 13:58] LABS: INR 1.03; PROTHROMBIN TIME 13.6 SECONDS (12.1-14.4)
[2018-12-16] MEDS ORDERED: ISOVUE-370 76% 100ML VIAL (Q9967) As Ordered ONE (14:07)
--- NOTE | 2018-12-16 14:44 | REP ---
CT thoracic spine without contrast. HISTORY: Trauma COMPARISON : None The thoracic spine is visualized from T1 to the T10-11 level. There is no acute fracture or subluxation. There is no disc bulge or herniation. The spinal canal and neural foramina are patent. There is loss of height of several mid and lower thoracic intervertebral discs. Vacuum phenomenon is present at the T6-7 and T8-9 through T10-11 levels. These findings are consistent with disc degeneration. A dorsal column stimulator is present in the spinal canal at the T6-7 level. The stimulator enters the spinal canal at the T7-8 level. IMPRESSION: There is no acute fracture or subluxation. Electronically Signed by Jasmeet Morrison MD 12/16/2018 02:35 P
--- NOTE | 2018-12-16 14:51 | REP ---
CT ABDOMEN AND PELVIS WITH IV CONTRAST: TECHNIQUE: Axial contrast enhanced images from the lung bases to the pubic symphysis using 100 mL Isovue 370 intravenous contrast material with multiplanar reformations. Visualized lung bases demonstrate no significant abnormality. The liver, spleen, adrenals, pancreas are unremarkable. There appears to be a small cyst in the upper pole of the right kidney. Extrarenal pelvis is seen bilaterally. There are atherosclerotic calcifications of the abdominal aorta without aneurysm. No adenopathy is seen. There is no free air or free fluid. No bowel wall thickening is seen. No pelvic mass is seen. Urinary bladder appears intact. Visualized osseous structures appear intact. There is a dorsal column stimulator device noted. IMPRESSION: No acute abnormalities detected. Electronically Signed by Joe Dominguez MD 12/16/2018 08:13 P
--- NOTE | 2018-12-16 14:51 | REP ---
CT Lumbar Spine without contrast HISTORY: Fall COMPARISON: None There is no disc bulge or herniation at the L1-2 level. The L1 nerves exit the neural foramina without compression. A diffuse disc bulge is present at the L2-3 level. There is hypertrophy of the ligamenta flava and posterior articulating facets. These findings produce minimal central canal stenosis. The L2 nerves exit the neural foramina without compression. A diffuse disc bulge is present at the L3-4 level. There is hypertrophy of the ligamenta flava and posterior articulating facets. These findings produce mild central canal stenosis. The L3 nerves exit the neural foramina without compression. A diffuse disc bulge is present at the L4-5 level. There is hypertrophy of the ligamenta flava and posterior articulating facets. These findings produce mild central canal stenosis. The L4 nerves exit the neural foramina without compression. A diffuse disc bulge is present at the L5-L1 level. There is minimal compression of the thecal sac. There is hypertrophy of the posterior articulating facets. The L5 nerves exit the neural foramina without compression. The patient is status post L5 S one laminectomy. The lumbar intervertebral discs are decreased in height. Vacuum phenomenon is present at the L4-5 level. These findings are consistent with disc degeneration. There is no acute fracture or subluxation. Impression 1. Minimal central canal stenosis at the L2-3 level secondary to disc bulge, ligamentous and facet hypertrophy. 2. Mild central canal stenosis at the L3-4 and L4-5 levels secondary to disc bulge, ligamentous and facet hypertrophy. 3. Diffuse disc bulge at the L5-L1 level with minimal thecal sac compression. The patient is status post L5-L1 laminectomy. IMPRESSION: Normal study. Electronically Signed by Jasmeet Morrison MD 12/16/2018 02:42 P
[2018-12-16 15:05] VITALS: BP 122/60
[2018-12-16] MEDS ORDERED: NORC1TAB7 PO (15:12)
[2018-12-16] MEDS ORDERED: NORCO, ANEXSIA 5/325MG TABLET (HYDROcodone/ACETAMINOPHEN) PO ONE (15:15)
--- NOTE | 2018-12-17 13:42 | ED PDOC ---
Post-Departure Follow-Up dr ugalde faxed formal report of ct ls spine for fu Shashank Johnson MD Dec 17, 2018 13:42
== END 2018-12-16 15:29 | disposition home or self-care (01) ==
LOC: M ED 12:21
DX: S20.229A Contusion of unspecified back wall of thorax, initial encounter (principal); W18.2XXA Fall in (into) shower or empty bathtub, initial encounter; Y92.091 Bathroom in other non-institutional residence as the place of occurrence of the external cause; M51.34 Other intervertebral disc degeneration, thoracic region; M51.06 Intervertebral disc disorders with myelopathy, lumbar region; M48.061 Spinal stenosis, lumbar region without neurogenic claudication; M46.96 Unspecified inflammatory spondylopathy, lumbar region; E11.40 Type 2 diabetes mellitus with diabetic neuropathy, unspecified; Z87.442 Personal history of urinary calculi; Z85.43 Personal history of malignant neoplasm of ovary; Z96.9 Presence of functional implant, unspecified; Z88.2 Allergy status to sulfonamides; Z88.8 Allergy status to other drugs, medicaments and biological substances; Z88.1 Allergy status to other antibiotic agents; Z91.040 Latex allergy status; Z79.899 Other long term (current) drug therapy; Z79.4 Long term (current) use of insulin
CPT/HCPCS: 72128; 72131; 74177; 80047; 85025; 85610; 85730; 96374; 96375; 99284; J2270; J2405; Q9967

== ENCOUNTER 2019-01-05 09:24 | Outpatient (CLI) | payer MEDICARE ==
[~2019-01-05] VITALS: Ht 167.6 cm; Wt 69.1 kg
[~2019-01-05 09:24] MED LIST changes: +GABA-843; +HYDR-3713 PO; +LEVE1INJ5 SC; +NORC1TAB7 PO; +SODIUM CHLORIDE 0.9% INJ 10 ML SYR IV SCH
[2019-01-05 09:30] VITALS: BP 142/73
== END 2019-01-05 09:50 | disposition home or self-care (01) ==
LOC: M INFU 09:24
PROVIDERS: ATTEND Obstetrics & Gynecology Gynecologic Oncology
DX: Z85.44 Personal history of malignant neoplasm of other female genital organs (principal); Z92.21 Personal history of antineoplastic chemotherapy

== ENCOUNTER 2019-02-10 08:37 | Outpatient (CLI) | payer MEDICARE ==
[~2019-02-10] VITALS: Ht 167.6 cm; Wt 69.1 kg
[~2019-02-10 08:37] MED LIST changes: -SODIUM CHLORIDE 0.9% INJ 10 ML SYR IV SCH
[2019-02-10 08:56] VITALS: BP 107/57
[2019-02-10] MEDS ORDERED: SODIUM CHLORIDE 0.9% INJ 10 ML SYR IV SCH (09:00)
== END 2019-02-10 08:55 ==
LOC: M INFU 08:37
PROVIDERS: ATTEND Physician Assistant
DX: Z85.44 Personal history of malignant neoplasm of other female genital organs (principal)

== ENCOUNTER → 2019-04-03 | Outpatient (REF) | payer MEDICARE ==
[2019-04-03 18:52] LABS: BASO % 0.4 % (0.0-1.0); EOS # 0.2 10^3/uL (0.0-0.5); EOS % 2.6 % (0.0-3.0); HEMATOCRIT 35.2 % (36.0-47.0); HEMOGLOBIN 11.6 g/dl (12.0-15.5); LYMPH # 2.7 10^3/uL (1.5-5.0); LYMPH % 38.8 % (24.0-44.0); MEAN CORPUSCULAR HEMOGLOBIN 30.7 pg (27.0-33.0); MEAN CORPUSCULAR VOLUME 93.1 fl (80.0-96.0); MONO # 0.5 10^3/uL (0.0-0.8); MONO % 7.2 % (0.0-5.0); NEUTROPHILS # 3.6 10^3/uL (1.5-8.5); NEUTROPHILS % 50.7 % (36.0-66.0); PLATELET COUNT, AUTOMATED 192 10^3/uL (150-450); RED BLOOD COUNT 3.78 10^6/uL (4.00-5.40)
[2019-04-03 19:16] LABS: CREATININE, URINE 46.8 MG/DL; MAU/CREAT RATIO 132.4 MCG/MG (0.0-30.0)
[2019-04-03 19:27] LABS: ALBUMIN 3.8 GM/DL (3.2-5.2); ALT/SGPT 21 U/L (12-78); BILIRUBIN,TOTAL 0.3 MG/DL (0.2-1.0); BLOOD UREA NITROGEN 19 MG/DL (7-18); CALCIUM LEVEL 10.3 MG/DL (8.5-10.1); CARBON DIOXIDE LEVEL 30 MEQ/L (21-32); CHLORIDE LEVEL 103 MEQ/L (98-107); CHOLESTEROL LEVEL 209 MG/DL (<200); CHOLESTEROL RISK RATIO 5.971 (<5); GLOMERULAR FILTRATION RATE > 60.0 (>51); GLUCOSE, FASTING 158 MG/DL (70-100); HDL CHOLESTEROL 35 MG/DL (>40); LDL CHOLESTEROL 121 MG/DL (<100); NON-HDL-C 174 MG/DL; POTASSIUM SERUM 4.2 MEQ/L (3.5-5.1); SODIUM LEVEL 139 MEQ/L (136-145); TOTAL PROTEIN 7.2 GM/DL (6.4-8.2); TRIGLYCERIDES LEVEL 263 MG/DL (<150)
[2019-04-03 21:18] LABS: ERYTHROCYTE SEDIMENTATION RATE 34 mm/hr (0-30)
== END ==
LOC: M SFHCPLAZ 14:21
DX: E11.65 Type 2 diabetes mellitus with hyperglycemia (principal); E78.5 Hyperlipidemia, unspecified

== ENCOUNTER 2019-04-27 13:48 | Outpatient (CLI) | payer MEDICARE ==
[~2019-04-27] VITALS: Ht 167.6 cm; Wt 69.0 kg
[~2019-04-27 13:48] MED LIST changes: +SODIUM CHLORIDE 0.9% INJ 10 ML SYR IV SCH
[2019-04-27 13:55] VITALS: BP 98/54
== END 2019-04-27 14:30 | disposition home or self-care (01) ==
LOC: M INFU 13:48
PROVIDERS: ATTEND Physician Assistant
DX: Z85.44 Personal history of malignant neoplasm of other female genital organs (principal)

== ENCOUNTER 2019-06-22 10:45 | Outpatient (CLI) | payer MEDICARE ==
[~2019-06-22] VITALS: Ht 167.6 cm; Wt 69.0 kg
[2019-06-22 11:00] VITALS: BP 101/57
== END 2019-06-22 11:20 | disposition home or self-care (01) ==
LOC: M INFU 10:45
DX: Z85.44 Personal history of malignant neoplasm of other female genital organs (principal); Z88.2 Allergy status to sulfonamides; Z88.8 Allergy status to other drugs, medicaments and biological substances; Z91.040 Latex allergy status

== ENCOUNTER → 2019-06-25 | Outpatient (REF) | payer MEDICARE ==
[~2019-06-25] MED LIST changes: -SODIUM CHLORIDE 0.9% INJ 10 ML SYR IV SCH
[2019-06-25 15:48] LABS: CHOLESTEROL RISK RATIO 4.179 (<5)
[2019-06-25 16:13] LABS: HEMOGLOBIN A1c 7.2 %
[2019-06-26 11:40] LABS: CA 125 85.7 U/ML (<30.2)
== END ==
LOC: M SFHCPLAZ 13:54
DX: C78.6 Secondary malignant neoplasm of retroperitoneum and peritoneum (principal); E11.65 Type 2 diabetes mellitus with hyperglycemia; E78.5 Hyperlipidemia, unspecified
CPT/HCPCS: 36415; 80061; 83036; 86304; G0463

== ENCOUNTER → 2019-07-02 | Outpatient (CLI) | payer MEDICARE ==
[2019-07-02 19:31] LABS: BLOOD UREA NITROGEN 19 MG/DL (7-18); CALCIUM LEVEL 9.3 MG/DL (8.5-10.1); CARBON DIOXIDE LEVEL 29 MEQ/L (21-32); CHLORIDE LEVEL 106 MEQ/L (98-107); CREATININE FOR GFR 0.91 MG/DL (0.55-1.30); GLOMERULAR FILTRATION RATE > 60.0 (>51); GLUCOSE, FASTING 209 MG/DL (70-100); POTASSIUM SERUM 4.3 MEQ/L (3.5-5.1); SODIUM LEVEL 141 MEQ/L (136-145)
== END ==
LOC: M PLALAB 15:14
PROVIDERS: ATTEND Internal Medicine
DX: M79.89 Other specified soft tissue disorders (principal)
CPT/HCPCS: 36415; 80048; G0463

== ENCOUNTER → 2019-07-03 | Outpatient (CLI) | payer MEDICARE ==
[~2019-07-03] MED LIST changes: +GASTROGRAFIN SOLUTION 30ML (Q9963) As Ordered ONE; +ISOVUE-370 76% 100ML VIAL (Q9967) As Ordered ONE
--- NOTE | 2019-07-03 13:37 | REP ---
Clinical: Malignancy. Technique: Axial contrast enhanced images from the lung bases to the pubic symphysis using oral (per protocol) and 100 ml Isovue 370 intravenous contrast material with coronal and sagittal re-formations as well as delayed images of the abdomen. Comparison: 12/16/2018. Findings: Lung bases are clear. Visualized heart and pericardium normal. Liver, spleen, pancreas, gallbladder, bilateral adrenal glands and kidneys are essentially normal/stable. The enteric system is without obstruction or acute inflammatory process although fecal stasis is suggested. Pelvis demonstrates normal bladder and evidence of prior hysterectomy. Stranding within the pelvis is nonspecific. No ascites. No free air. No obvious adenopathy. No obvious retroperitoneal mass. Musculoskeletal structures demonstrate age-related changes without focal aggressive lesion. Impression: 1. Chronic changes. No obvious acute process. 2. No ascites. No definite recurrence or metastatic disease identified. Electronically Signed by Darci Solis MD 07/03/2019 01:28 P
== END ==
LOC: M RAD 11:01
PROVIDERS: ATTEND Internal Medicine
DX: C78.6 Secondary malignant neoplasm of retroperitoneum and peritoneum (principal)
CPT/HCPCS: 74177; Q9963; Q9967

== ENCOUNTER 2019-08-03 10:13 | Outpatient (CLI) | payer MEDICARE ==
[~2019-08-03] VITALS: Ht 167.6 cm; Wt 69.0 kg
[~2019-08-03 10:13] MED LIST changes: -GASTROGRAFIN SOLUTION 30ML (Q9963) As Ordered ONE; -ISOVUE-370 76% 100ML VIAL (Q9967) As Ordered ONE; +SODIUM CHLORIDE 0.9% INJ 10 ML SYR IV SCH
[2019-08-03 10:20] VITALS: BP 137/60
== END 2019-08-03 10:45 | disposition home or self-care (01) ==
LOC: M INFU 10:13
PROVIDERS: ATTEND Physician Assistant
DX: Z85.44 Personal history of malignant neoplasm of other female genital organs (principal); Z88.2 Allergy status to sulfonamides; Z88.8 Allergy status to other drugs, medicaments and biological substances; Z91.040 Latex allergy status
CPT/HCPCS: 96523; J1642

== ENCOUNTER 2019-08-31 09:04 | Outpatient (CLI) | payer MEDICARE ==
[~2019-08-31] VITALS: Ht 167.6 cm; Wt 69.0 kg
[~2019-08-31 09:04] MED LIST changes: -SODIUM CHLORIDE 0.9% INJ 10 ML SYR IV SCH
[2019-08-31 09:05] VITALS: BP 128/59
[2019-08-31] MEDS ORDERED: SODIUM CHLORIDE 0.9% INJ 10 ML SYR IV ONE (10:00)
== END 2019-08-31 09:30 | disposition home or self-care (01) ==
LOC: M INFU 09:04
PROVIDERS: ATTEND Physician Assistant
DX: Z85.44 Personal history of malignant neoplasm of other female genital organs (principal); Z88.2 Allergy status to sulfonamides; Z88.8 Allergy status to other drugs, medicaments and biological substances; Z91.040 Latex allergy status

== ENCOUNTER 2019-09-12 13:25 | Emergency (ER) | payer OTHER, MEDICARE ==
[2019-09-12] MEDS ORDERED: LISI10TA4 (13:42)
[2019-09-12] MEDS ORDERED: ROSU10TA6 (13:42)
[2019-09-12] MEDS ORDERED: NORCO, ANEXSIA 5/325MG TABLET (HYDROcodone/ACETAMINOPHEN) PO ONE (14:00)
--- NOTE | 2019-09-12 14:44 | REP ---
CT thoracic spine: Without contrast: History: Pain after a fall. Comparison imaging is from July 03, 2019. CT findings: Lumbar vertebral body heights are preserved. No fracture or collapse is seen. There is mild degenerative spondylosis change. Disc space narrowing is seen at L2-3, L3-4 and L4-5. There is posterior disc bulging and disc calcification at each of these levels. There is central canal stenosis at L3-4 and L4-5. Borderline canal size is seen and L2-3. A laminectomy has been performed at L5. There is some mild central disc bulging at L5-S1. The findings are unchanged from the comparison CT abdomen study images July 03, 2019. Impression: Status post L5 laminectomy. Degenerative spondylosis changes with disc bulging and disc calcification at L2-3, L3-4, and L4-5. Central canal stenosis at L3-4 and L4-5. No fracture or other acute traumatic abnormality seen. Electronically Signed by Conner Wilson MD 09/12/2019 03:14 P
--- NOTE | 2019-09-12 14:50 | REP ---
Bilateral knee series: Nine views. History: Pain after fall. Findings: Five views of each knee demonstrate normal bones, joints, and soft tissues. There is no evidence of joint effusion or erosive change. No fracture is seen. Impression: No fracture noted. Electronically Signed by Conner Wilson MD 09/12/2019 03:15 P
[2019-09-12 16:44] VITALS: BP 110/55
== END 2019-09-12 16:56 | disposition home or self-care (01) ==
LOC: EDBD 13:25 → M ED 13:25
DX: S30.0XXA Contusion of lower back and pelvis, initial encounter (principal); W01.118A Fall on same level from slipping, tripping and stumbling with subsequent striking against other sharp object, initial encounter; Y92.89 Other specified places as the place of occurrence of the external cause; Y93.9 Activity, unspecified; Y99.0 Civilian activity done for income or pay; M51.26 Other intervertebral disc displacement, lumbar region; M47.816 Spondylosis without myelopathy or radiculopathy, lumbar region; E11.9 Type 2 diabetes mellitus without complications; E78.5 Hyperlipidemia, unspecified; J44.9 Chronic obstructive pulmonary disease, unspecified; E55.9 Vitamin D deficiency, unspecified; F41.9 Anxiety disorder, unspecified; C56.9 Malignant neoplasm of unspecified ovary; F17.200 Nicotine dependence, unspecified, uncomplicated; Z79.84 Long term (current) use of oral hypoglycemic drugs; Z79.899 Other long term (current) drug therapy; Z88.2 Allergy status to sulfonamides; Z88.8 Allergy status to other drugs, medicaments and biological substances; Z91.040 Latex allergy status

== ENCOUNTER → 2019-09-17 | Outpatient (REF) | payer MEDICARE ==
[~2019-09-17] MED LIST changes: +BENZ200C70 PO; +DECA4TAB PO; +DOXY100C PO; +FAMO40TA3 PO; -GABA-843; +HYOS125TA PO; +LIDO1PAD TOP; +LIDO5TD TD; +LISI10TA4 PO; +LORA0.5T5 PO; +MAPA500C PO; +MORP20SO3 PO; +ONDA-83 PO; +ROSU10TA6 PO; +SENN-23 PO; +SENN-52 PO; +ZOFR4TAB16 PO; +ZOFR8TAB24 PO
== END ==
LOC: M SFHCPLAZ 15:12
DX: C78.6 Secondary malignant neoplasm of retroperitoneum and peritoneum (principal); C56.9 Malignant neoplasm of unspecified ovary; Z23 Encounter for immunization
CPT/HCPCS: 86304; 87804; 90670; G0009; G0463

== ENCOUNTER → 2019-09-22 | Outpatient (CLI) | payer MEDICARE ==
[~2019-09-22] MED LIST changes: -BENZ200C70 PO; -DECA4TAB PO; -DOXY100C PO; -FAMO40TA3 PO; +GABA-843; +GASTROGRAFIN SOLUTION 30ML (Q9963) As Ordered ONE; -HYOS125TA PO; +ISOVUE-370 76% 100ML VIAL (Q9967) As Ordered ONE; -LIDO1PAD TOP; -LIDO5TD TD; +LISI10TA4; -LISI10TA4 PO; -LORA0.5T5 PO; -MAPA500C PO; -MORP20SO3 PO; -ONDA-83 PO; +ROSU10TA6; -ROSU10TA6 PO; -SENN-23 PO; -SENN-52 PO; -ZOFR4TAB16 PO; -ZOFR8TAB24 PO
[2019-09-22 14:44] LABS: BLOOD UREA NITROGEN 16 MG/DL (7-18); CALCIUM LEVEL 9.1 MG/DL (8.5-10.1); CARBON DIOXIDE LEVEL 31 MEQ/L (21-32); CHLORIDE LEVEL 104 MEQ/L (98-107); CREATININE FOR GFR 0.92 MG/DL (0.55-1.30); GLOMERULAR FILTRATION RATE > 60.0 (>51); GLUCOSE, FASTING 245 MG/DL (70-100); POTASSIUM SERUM 4.2 MEQ/L (3.5-5.1); SODIUM LEVEL 136 MEQ/L (136-145)
--- NOTE | 2019-09-22 19:07 | REP ---
HISTORY: Retroperitoneal and peritoneal malignancy. The latest prior for comparison is 10/15/2018. CONTRAST: 100 mL Isovue-370. The mediastinum and pulmonary maria teresa is unchanged. No mass or adenopathy has developed. There are no pleural or pericardial effusions. Please review the abdominal CT report for findings of the upper abdomen. Evaluation of the osseous structures show them to be stable from the prior exam. There is a spinal stimulator in place, status quo. Evaluation of the lung vargas shows no new abnormal nodules, masses or opacities. IMPRESSION: Stable CT examination of the chest. Electronically Signed by Travon Muller DO 09/22/2019 07:35 P
--- NOTE | 2019-09-22 19:27 | REP ---
HISTORY: Neoplasm. COMPARISON: Multiple, the latest 07/03/2019. There is ascites representing a change from the prior exam. The gallbladder, spleen, pancreas, adrenal glands and kidneys are unchanged. Note is again made of bilateral extrarenal pelvis. The abdominal aorta and para-aortic regions are unchanged. There is no development of retroperitoneal adenopathy, although multiple small retroperitoneal lymph nodes are noted. The bowel loops are within normal limits. Abnormal nodularity is seen involving the peritoneum. Scattered small nodules are also seen throughout the mesentery. CT PELVIS: Small pelvic sidewall lymph nodes are present. There is free pelvic fluid. The pelvic bowel loops are within normal limits. Bone window technique throughout the exam shows no significant change in the appearance of the osseous structures. IMPRESSION: 1. There is ascites which is mild, but new. 2. There is evidence of peritoneal/omental metastatic disease. 3. Multiple but nonenlarged para-aortic lymph nodes. 4. Nonenlarged but new pelvic sidewall lymph nodes. 5. Other findings as described above. Electronically Signed by Travon Muller DO 09/22/2019 07:35 P
== END ==
LOC: M RAD 13:50
PROVIDERS: ATTEND Internal Medicine
DX: C78.6 Secondary malignant neoplasm of retroperitoneum and peritoneum (principal)
CPT/HCPCS: 36415; 71260; 74177; 80048; Q9963; Q9967

== ENCOUNTER → 2019-10-09 | Outpatient (CLI) | payer MEDICARE ==
[~2019-10-09] MED LIST changes: +BENZ200C70 PO; +DOXY100C PO; -GASTROGRAFIN SOLUTION 30ML (Q9963) As Ordered ONE; -ISOVUE-370 76% 100ML VIAL (Q9967) As Ordered ONE; +MAPA500C PO; +ZOFR8TAB24 PO
--- NOTE | 2019-10-09 20:42 | ECHO ---
DATE OF PROCEDURE: 10/09/2019 Date of : 1965 Age: 54 Gender: Female Height: 68 inches Weight: 163 pounds Body surface area: 1.87 meters squared Outpatient. REFERRING PHYSICIAN: Bertram Lan MD INDICATION: Potentially cardiotoxic chemotherapy. MEASUREMENTS: 2D Measurements: RV: 2.7 cm LV: 3.9 cm Septum: 0.9 cm Posterior wall: 0.9 cm Aortic root: 2.9 cm LA: 3.2 cm LVEF: 75% Doppler Measurements: AV: 1.53 meters per second LVOT: 0.9 meters per second LVOT diameter: 2.0 cm MV-E: 57, A: 75, EA ratio: 0.8 Early mitral deceleration time: 174 milliseconds E prime medial: 5.8, A prime medial: 7.8, E prime lateral: 9.7. Average E/E prime ratio: 7.4/PCWP: 11 mmHg PV: 0.8 meters per second IVC: 1.5 cm COMMENTS: Normal sinus rhythm without intraventricular conduction disturbance. M-mode and two-dimensional echocardiography was performed with pulsed, continuous wave, color flow and tissue Doppler studies. Normal left ventricular size, wall thickness and hyperkinetic wall motion. Normal left atrial size with grade 1 LV diastolic dysfunction but currently normal estimated mean left atrial pressure. Normal right heart chamber sizes and motion. Normal inferior vena cava (IVC) size and collapse against an elevated central venous pressure. Normal aortic dimensions. Slight asymmetrical aortic valvular sclerosis without stenosis but very mild insufficiency. Normal-appearing mitral valve with trace insufficiency. Normal appearing tricuspid valve with very mild insufficiency. No pedunculated mass or vegetation, but the asymmetrical aortic valve finding could possibly be a sessile vegetation. Clinical correlation is advised. No other intracardiac mass or pericardial effusion. MTDD
== END ==
LOC: M CARPUL 09:35
PROVIDERS: ATTEND Internal Medicine Hematology
DX: Z01.818 Encounter for other preprocedural examination (principal); C56.9 Malignant neoplasm of unspecified ovary; Z88.2 Allergy status to sulfonamides; Z88.8 Allergy status to other drugs, medicaments and biological substances; Z91.040 Latex allergy status

== ENCOUNTER 2019-10-21 17:32 | Emergency (ER) | payer MEDICARE ==
[~2019-10-21] VITALS: Ht 167.6 cm; Wt 71.2 kg
[~2019-10-21 17:32] MED LIST changes: -GABA-843; -LISI10TA4; +LISI10TA4 PO; -ROSU10TA6; +ROSU10TA6 PO
[2019-10-21] MEDS ORDERED: ONDANSETRON 4MG/2ML VIAL (J2405) IV ONE (18:00)
[2019-10-21] MEDS ORDERED: NS 1,000 ML IV ONE (18:00)
[2019-10-21] MEDS ORDERED: MORPHINE 4 MG/ML 1ML VIAL/SYRINGE (J2270) IV ONE (18:00)
[2019-10-21 18:52] LABS: HEMATOCRIT 36.1 % (36.0-47.0); HEMOGLOBIN 12.2 g/dl (12.0-15.5); MEAN CORPUSCULAR HEMOGLOBIN 28.7 pg (27.0-33.0); MEAN CORPUSCULAR HGB CONC 33.8 g/dl (32.0-36.5); MEAN CORPUSCULAR VOLUME 84.9 fl (80.0-96.0); PLATELET COUNT, AUTOMATED 145 10^3/uL (150-450); RED BLOOD COUNT 4.25 10^6/uL (4.00-5.40); WHITE BLOOD COUNT 13.6 10^3/uL (4.0-10.0)
[2019-10-21 19:14] LABS: LYMPHOCYTES 7 % (16-44); MONOCYTES 4 % (0-5); NEUTROPHILS 88 % (28-66)
[2019-10-21] MEDS ORDERED: cefTRIAXone SOD 1 GM in D5W MINI-BAG PLUS 50 ML IV ONE (19:15)
[2019-10-21 19:29] LABS: PLATELET ESTIMATE DECREASED (NORMAL)
[2019-10-21 19:36] LABS: ALBUMIN 2.8 GM/DL (3.2-5.2); ALT/SGPT 29 U/L (12-78); BILIRUBIN,DIRECT 0.3 MG/DL (0.0-0.2); BILIRUBIN,TOTAL 0.8 MG/DL (0.2-1.0); CK-MB VALUE MASS 1.1 NG/ML (<3.6); CPK CREATINE PHOSPHOKINASE 44 U/L (26-192); LIPASE 133 U/L (73-393); TOTAL PROTEIN 6.8 GM/DL (6.4-8.2); TROPONIN I < 0.02 NG/ML (< 0.10)
[2019-10-21] MEDS ORDERED: ISOVUE-370 76% 100ML VIAL (Q9967) As Ordered ONE (20:07)
--- NOTE | 2019-10-21 20:19 | REP ---
ABDOMINAL SERIES: Supine and erect views of the abdomen demonstrate no free air and no evidence of small bowel obstruction. There is moderate dilatation of the colon with air. I do not see significantly dilated small bowel loops. Phleboliths are seen in the pelvis. There are mild degenerative changes in the spine. An accompanying view of the chest demonstrates no acute infiltrate. Heart is normal in size. Right central venous catheter is noted. IMPRESSION: Moderately dilated air filled colon. No free air and no small bowel obstruction. Electronically Signed by Joe Dominguez MD 10/22/2019 09:08 A
--- NOTE | 2019-10-21 20:56 | REPVR ---
PROCEDURE INFORMATION: Exam: CT Abdomen And Pelvis With Contrast Exam date and time: 10/21/2019 8:11 PM Age: 54 years old Clinical indication: Abdominal pain; Generalized; Additional info: Abd pain, n/v/d. Eval for sbo TECHNIQUE: Imaging protocol: Computed tomography of the abdomen and pelvis with intravenous contrast. Radiation optimization: All CT scans at this facility use at least one of these dose optimization techniques: automated exposure control; mA and/or kV adjustment per patient size (includes targeted exams where dose is matched to clinical indication); or iterative reconstruction. Contrast material: ISOVUE 370; Contrast volume: 100 ml; Contrast route: IV; COMPARISON: CT ABD PELVIS WITH CONTRAST 09/22/2019 4:50 PM FINDINGS: Tubes, catheters and devices: Spinal stimulator is present. Liver: Hepatomegaly measures 21 centimetres. Gallbladder and bile ducts: Normal. No calcified stones. No ductal dilation. Pancreas: Normal. No ductal dilation. Spleen: Calcified granulomas are present involving the spleen. Adrenals: Normal. No mass. Kidneys and ureters: Both kidneys demonstrate extrarenal pelves. Small right renal hypodensity is too small to characterize. Stomach and bowel: There is increasing colonic distention. There is mild thickening involving the descending colon and sigmoid colon. Negative for small bowel obstruction. Appendix: No evidence of appendicitis. Intraperitoneal space: The small volume of ascites, mildly increased from prior examination. Vasculature: Unremarkable. No abdominal aortic aneurysm. Lymph nodes: Unremarkable. No enlarged lymph nodes. Bladder: Unremarkable as visualized. Reproductive: Previous hysterectomy. Bones/joints: Unremarkable. No acute fracture. Soft tissues: There is interval progression in omental/peritoneal soft tissue nodularity IMPRESSION: 1. Worsening peritoneal carcinomatosis. 2. Mild thickening involving the descending colon and sigmoid colon, nonspecific colitis. 3. Small volume of ascites, mildly progressed from prior examination. Electronically signed by: Larry Cifuentes On 10/21/2019 20:55:56 PM
[2019-10-21] MEDS ORDERED: ZOFR4TAB16 PO (22:05)
[2019-10-21 22:30] VITALS: BP 118/62
--- NOTE | 2019-10-22 20:30 | ECGEPIP ---
[facility] - ED Test Date: 2019-10-21 Pat Name: VISHAL PAZ Department: Room: - Gender: Female Poured Pipe Maker: christopher marcos : 1965 Requested By: SELIN FERGUSON Order Number: [id number] Reading MD: Chi Hood Measurements Intervals [place] Rate: 109 P: 60 MO: 134 QRS: 44 QRSD: 88 T: 75 QT: 313 QTc: 422 Interpretive Statements SINUS TACHYCARDIA RATE CHANGE COMPARED TO 02/17/17 Electronically Signed on 10-22-2019 20:30:24 EDT by Chi Hood
[2019-10-22] MEDS ORDERED: FAMO40TA3 PO (21:54)
== END 2019-10-21 22:50 | disposition home or self-care (01) ==
LOC: M ED 17:32
DX: K56.7 Ileus, unspecified (principal); E86.0 Dehydration; R11.2 Nausea with vomiting, unspecified; R19.7 Diarrhea, unspecified; R18.8 Other ascites; C56.9 Malignant neoplasm of unspecified ovary; E11.40 Type 2 diabetes mellitus with diabetic neuropathy, unspecified; I10 Essential (primary) hypertension; E78.5 Hyperlipidemia, unspecified; J44.9 Chronic obstructive pulmonary disease, unspecified; F17.200 Nicotine dependence, unspecified, uncomplicated; Z79.84 Long term (current) use of oral hypoglycemic drugs; Z79.899 Other long term (current) drug therapy; Z88.2 Allergy status to sulfonamides; Z88.8 Allergy status to other drugs, medicaments and biological substances; Z91.040 Latex allergy status
CPT/HCPCS: 74021; 74177; 80047; 80076; 81001; 82550; 82553; 83605; 83690; 84484; 85025; 87088; 93005; 93041; 96361; 96374; 96375; 99285; J0696; J2270; J2405; Q9967

== ENCOUNTER 2019-10-22 21:35 | Inpatient (IN) | payer MEDICARE ==
[~2019-10-22] VITALS: Ht 167.6 cm; Wt 72.9 kg
[2019-10-22] MEDS: HumaLOG INSULIN (NovoLOG) PER UNIT SC SCH (21:00)
[~2019-10-22 21:35] MED LIST changes: +ZOFR4TAB16 PO
[2019-10-22] MEDS ORDERED: FAMO40TA3 PO (21:54)
[2019-10-22] MEDS ORDERED: NS 1,000 ML IV ONE (22:30)
[2019-10-22] MEDS ORDERED: PROMETHAZINE INJ 25 MG/ML VIAL (J2550) IV ONE ×2 (22:45→23:30)
[2019-10-22 22:56] LABS: HEMATOCRIT 34.8 % (36.0-47.0); HEMOGLOBIN 11.6 g/dl (12.0-15.5); MEAN CORPUSCULAR HEMOGLOBIN 28.6 pg (27.0-33.0); MEAN CORPUSCULAR HGB CONC 33.3 g/dl (32.0-36.5); MEAN CORPUSCULAR VOLUME 85.9 fl (80.0-96.0); PLATELET COUNT, AUTOMATED 132 10^3/uL (150-450); RED BLOOD COUNT 4.05 10^6/uL (4.00-5.40); WHITE BLOOD COUNT 7.7 10^3/uL (4.0-10.0)
[2019-10-22] MEDS ORDERED: MORPHINE 4 MG/ML 1ML VIAL/SYRINGE (J2270) IV ONE (23:30)
[2019-10-22 23:32] LABS: ALBUMIN 2.7 GM/DL (3.2-5.2); BILIRUBIN,DIRECT 0.3 MG/DL (0.0-0.2); BILIRUBIN,TOTAL 0.7 MG/DL (0.2-1.0); TOTAL PROTEIN 6.3 GM/DL (6.4-8.2)
[2019-10-22 23:37] LABS: EOSINOPHILS 4 % (0-3); LYMPHOCYTES 6 % (16-44); MONOCYTES 6 % (0-5); NEUTROPHILS 84 % (28-66)
[2019-10-22 23:38] LABS: PLATELET ESTIMATE DECREASED (NORMAL)
[2019-10-23] MEDS ORDERED: CIPROFLOXACIN 400 MG in IV 1 EA IV SCH ×2
[2019-10-23] MEDS ORDERED: NS 1,000 ML IV ONE
[2019-10-23] MEDS ORDERED: GLUCAGON FOR INJ 1 MG VIAL (J1610) SC PRN (00:15)
[2019-10-23] MEDS ORDERED: DEXTROSE 50% 50 ML SYRINGE IV PRN (00:15)
[2019-10-23] MEDS ORDERED: GLUCOSE 4 GM CHEW TABLET PO PRN (00:15)
[2019-10-23] MEDS ORDERED: ONDA-83 PO (00:17)
[2019-10-23] MEDS ORDERED: DECA4TAB PO (00:17)
[2019-10-23] MEDS ORDERED: NORCO, ANEXSIA 5/325MG TABLET (HYDROcodone/ACETAMINOPHEN) PO PRN (00:45)
[2019-10-23 01:27] VITALS: BP 135/75
[2019-10-23] MEDS: KCL 10MEQ IN D5/0.45NS 1000ML 1,000 ML IV SCH ×2 (01:55→12:02)
[2019-10-23] MEDS: METOCLOPRAMIDE INJ 10MG/2ML VIAL (J2765 PER 1) IV SCH ×4 (01:56→17:19)
[2019-10-23] MEDS: ROSUVASTATIN 10 MG TAB (CRESTOR) PO SCH ×2 (01:57→21:13)
[2019-10-23] MEDS: GABAPENTIN 300 MG CAP PO SCH ×3 (01:57→21:13)
[2019-10-23] MEDS: lisinopriL 10 MG TAB PO SCH ×2 (01:57→21:00)
[2019-10-23] MEDS ORDERED: metroNIDAZOLE 500 MG in IV 1 EA IV SCH (02:00)
[2019-10-23] MEDS: ONDANSETRON 4MG/2ML VIAL (J2405 PER 1MG) IV SCH ×4 (03:28→21:12)
[2019-10-23 06:00] VITALS: BP 132/73
[2019-10-23 06:28] LABS: HEMATOCRIT 32.2 % (36.0-47.0); HEMOGLOBIN 10.7 g/dl (12.0-15.5); MEAN CORPUSCULAR HEMOGLOBIN 28.8 pg (27.0-33.0); MEAN CORPUSCULAR HGB CONC 33.2 g/dl (32.0-36.5); MEAN CORPUSCULAR VOLUME 86.8 fl (80.0-96.0); PLATELET COUNT, AUTOMATED 140 10^3/uL (150-450); RED BLOOD COUNT 3.71 10^6/uL (4.00-5.40); WHITE BLOOD COUNT 7.3 10^3/uL (4.0-10.0)
--- NOTE | 2019-10-23 06:52 | HPE ---
DATE OF ADMISSION: 10/22/2019 CHIEF COMPLAINT: Vomiting, nausea, abdominal pain. 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 Lan and Dr. Gomes from [facility]. Last chemotherapy was . She presents to the emergency room with one week history of intractable nausea and vomiting four to five times during the day, unalleviated by Zofran, as well as increasing abdominal discomfort rated at 10 out of 10 on a pain scale without worsening abdominal distention. The patient has had chemotherapy induced neuropathy and has had an echocardiogram with ejection fraction (EF) of 75% as baseline. She currently has a MediPort that was placed and has received Neulasta with her first cycle for primary prophylaxis. She presents today with decrease in oral intake with some weight loss. Previously weighed 74.4 kg, currently weighs 71.2 kg. She denies any fever, chills, shortness of breath, chest pain, pressure or tightness, dysuria, urgency, frequency, cough, hemoptysis. The patient presented to the emergency room on and was discharged home, but then returns again today, 10/22/2019, with recurrent symptoms. She is admitted for intractable nausea and vomiting with known history of metastatic adenocarcinoma of the ovary. Repeat CT of the abdomen and pelvis shows worsening peritoneal carcinomatosis with mild thickening involving the descending colon and sigmoid colon with nonspecific colitis and small volume of ascites which has mildly progressed from prior examination. PAST MEDICAL HISTORY: 1. Metastatic ovarian cancer with peritoneal carcinomatosis currently undergoing chemotherapy with carboplatin and Doxil. 2. Diabetes. 3. Chronic obstructive pulmonary disease (COPD). 4. Hyperlipidemia. 5. Degenerative disk disease with dorsal column stimulator. 6. Anxiety. 7. Vitamin D deficiency. 8. 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 9. 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 10. Hypertension. PAST SURGICAL HISTORY: 1. Total abdominal hysterectomy with bilateral oophorectomy. 2. Left ankle fracture repair. 3. section. 4. Left foot debridement. 5. Tubal ligation. 6. Appendectomy. 7. Dorsal column stimulator placement. 8. MediPort placement for chemotherapy. HOME MEDICATIONS: - Decadron 8 mg daily - famotidine 40 mg daily - gabapentin 300 mg twice a day - hydrocodone/acetaminophen 5/325 one tab four times a day as needed - lisinopril 10 mg at bedtime - metformin 1 gram twice a day - Zofran 4 mg every 4 hours as needed - rosuvastatin 10 mg at bedtime ALLERGIES: - SULFA - LATEX - PIROXICAM - PSEUDOEPHEDRINE - SULFAMETHOXAZOLE - TERFENADINE - TRIMETHOPRIM SOCIAL HISTORY: Previously smoked cigarettes, 40 pack year history, quit July. No recreational drug use. High school graduate. Not currently working. No alcohol use. FAMILY HISTORY: Mother age 74 small cell lung carcinoma. Three brothers, one with diabetes. Four sisters. Father age 84, history of colon cancer, due to complications of a fall. REVIEW OF SYSTEMS: Per history of present illness (HPI), 12 point system otherwise negative. PHYSICAL EXAMINATION: Temperature 97.3, pulse 108, respiratory rate 16, blood pressure 134/75, 98% on room air. Generally, the patient is awake, alert and oriented to person, place and time. Anicteric. No jaundice. No pallor or icterus. The patient has no conversational dyspnea. No thyromegaly. Moist mucous membranes. Neck is supple. Full range of motion. Without lymphadenopathy or thyromegaly. Lungs are clear to auscultation, without wheezing, rales or rhonchi. Heart: S1, S2. Sinus rhythm. No murmurs, rubs or gallops. Nondisplaced point of maximal impulse. MediPort noted in right anterior chest. No erythema or tenderness. Abdomen is soft. Slightly tender bilateral lower quadrants. No rebound or guarding. Mild hepatosplenomegaly. Surgical scars that are well healed, three small incisions. Extremities: No cyanosis, clubbing or any pitting edema. LABORATORY DATA: White count 7.7, hemoglobin 11, hematocrit 34, platelet count 132, with 84% neutrophils, 6 lymphocytes. Sodium 134, potassium 4.5, chloride 99, bicarbonate 23, BUN 19, creatinine 0.7, glucose 170. Total bilirubin 0.7, direct bilirubin 0.3. AST 27, ALT 27, alkaline phosphatase 170. Total protein 6.3. Albumin 2.7. Lipase 141. CT of abdomen and pelvis on 10/21/2019 - hepatomegaly measures 21 cm, no calcified stones in the gallbladder, no ductal dilatation, normal pancreas, calcific granulomas involving the spleen, normal adrenals, kidneys demonstrate extrarenal pelves, small right renal hypodensity too small to characterize. There is increasing colonic distention, mild thickening involving descending and sigmoid colon, negative for small bowel obstruction, no evidence of appendicitis. Small volume of ascites, mildly increased from prior examination. Unremarkable vasculature. No abdominal aortic aneurysm. There is interval progression in omental and peritoneal soft tissue nodularity, worsening peritoneal carcinomatosis with mild thickening involving the descending colon and sigmoid colon, nonspecific colitis, small volume of ascites mildly progressed from prior examination. ASSESSMENT AND PLAN: This is a 54-year-old female with history of metastatic adenocarcinoma of the ovary Stage 3 undergoing chemotherapy who presents with intractable nausea and vomiting. CT of abdomen and pelvis shows worsening peritoneal carcinomatosis with nonspecific colitis. The patient is admitted for supportive care. IMPRESSION: 1. Intractable nausea and vomiting with worsening peritoneal carcinomatosis from known history of Stage 3 ovarian cancer, currently undergoing chemotherapy with carboplatin and Doxil. The patient will be supported with intravenous fluids and antiemetics. She may be resumed on her home medications including her Decadron and hydrocodone for pain control. Diet will be initially full liquids, but will be advanced as tolerated to her consistent carbohydrate diet. Due to decrease in oral intake, will monitor her for hypoglycemia and place her on hypoglycemic protocol. Continue with IV fluids. Finger sticks every 6 hours. Hold off on metformin until she resumes an oral diet. 2. Metastatic ovarian cancer, undergoing chemotherapy. No fever. No white count at the moment. Outpatient followup with Dr. Lan. 3. Peripheral neuropathy secondary to chemotherapy. Managed by Dr. Lan. She is currently on Neurontin for diabetic peripheral neuropathy as well. 4. Type 2 diabetes on insulin sliding scale. Will advance from full liquids to consistent carbohydrate diet as patient improves clinically with her nausea and vomiting. 5. Nonspecific colitis. In light of her immunocompromised state, will check PCR for Clostridium difficile and check a GI panel. Avoid a bowel regimen for now. Isolation with contact until C. Difficile negative and GI panel is negative. Empiric treatment with Cipro and Flagyl for the nonspecific colitis in light of immunocompromised state. 6. Hypertension. May resume home lisinopril, but monitor for volume depletion in light of intractable nausea and vomiting. Holding parameters for systolic pressure less than 120 and creatinine greater than 1.5. Will check serum metabolic panel to monitor patient's renal function. Strict ins and outs and daily weights. 7. Cancer cachexia with weight loss from 74.4 kg from 10/12/2019 to 71.2 kg on 10/23/2019. Will continue to encourage oral intake after nausea and vomiting improves. Outpatient followup with a pre owned sales consultant. 8. Code status is a full code. MTDD
[2019-10-23 07:31] LABS: BLOOD UREA NITROGEN 17 MG/DL (7-18); CALCIUM LEVEL 8.2 MG/DL (8.5-10.1); CARBON DIOXIDE LEVEL 23 MEQ/L (21-32); CHLORIDE LEVEL 104 MEQ/L (98-107); CREATININE FOR GFR 0.65 MG/DL (0.55-1.30); GLOMERULAR FILTRATION RATE > 60.0 (>51); GLUCOSE, FASTING 164 MG/DL (70-100); MAGNESIUM LEVEL 1.9 MG/DL (1.8-2.4); SODIUM LEVEL 135 MEQ/L (136-145)
[2019-10-23] MEDS: HumaLOG INSULIN (NovoLOG) PER UNIT SC SCH ×4 (07:55→21:00)
[2019-10-23] MEDS: FAMOTIDINE 20 MG TAB PO SCH (07:56)
[2019-10-23 14:00] VITALS: BP 136/72
--- NOTE | 2019-10-23 15:47 | IPNPDOC ---
Text Note Date of Service The patient was seen on 10/23/19. NOTE S: Pt examined at bedside. Continues to have persistent nausea, vomiting, abdominal discomfort to this morning. No blood loss. Otherwise hemodynamically stable, no fever or white count. PE: Vitals: see below General: NAD, A&Ox3, in mild distress due to abdominal pain and nausea, appears older than stated age HEENT: NCAT, EOMI, anicteric sclera, dry mucous membranes, neck supple CV: RRR, 2/6 systolic murmur, no clicks or rub. No edema RESP: CTAB, no w/r/r/ ABD: soft, ND. Diffusely tender. No rebound or rigidity, some guarding. EXTREMITIES: 2+ radial pulses b/l, able to move all extremities NEURO: no focal deficits. Able to follow commands A/P: This is a 54-year-old female with relapse of ovarian cancer found initially with mets to the peritoneum 04/2018, underwent chemo & surgery at [facility] with improvement in Mar 2019, found to have recurrence recently in Jun 2019. In September 22, 2019, imaging reviewed new ascites with evidence of peritoneal and omental metastases. Normally follows with Dr. Lan. Presented initially to ER October 20 for worsening nausea, vomiting, abdominal pain after she started her first chemotherapy session this past . Was sent home after IVF, Ceftriaxone x1, and antiemetics, now returns for worsening of her GI complaints. 1. Nausea, vomiting, abdominal pain -started after 1st chemo session Saturday10/15/19 for papillary serous carcinoma: Carboplatin & Doxorubicin - Ct abd/pelvis 10/21/19 Worsening peritoneal carcinomatosis. 2. Mild thickening involving the descending colon and sigmoid colon, nonspecific colitis. 3. Small volume of ascites, mildly progressed from prior examination. - likely 2/2 expansion of malignancy and secondary inflammation - afebrile, no fever or chills. Will monitor without abx - supportive care: IVF, antiemetics, pain control - encourage po intake - full liquids diet. Monitor e-lytes & vol status 2. Peritoneal carcinomatosis: - Fallopian tube cancer s/p total laparoscopic hysterectomy, bilateral salpingo- oophorectomy and omentectomy - cancer relapse, follows with [facility] & Dr. Lan - restarted chemo, 1st session as noted above - Oncologist Dr. Cotto consulted, appreciate input: continue supportive care - work with PT/OT NIDDM2 -hold metformin - ISS w/ hypoglycemic protocol Hyperlipidemia - continue statin COPD - stable. Room air at baseline DVT ppx: Lovenox sc DISPO: pending clinical improvement, PT/OT, & Onc consult. VS,Fishbone, I+O VS, Fishbone, I+O Laboratory Tests 10/22/19 22:44 10/23/19 05:14 Vital Signs Date Time Temp Pulse Resp B/P (MAP) Pulse Ox O2 Delivery O2 Flow Rate FiO2 10/23/19 06:00 97.9 94 19 132/73 (92) 97 Room Air I&O- Last 24 Hours up to 6 AM 10/23/19 06:00 Intake Total 1480 ml Output Total 250 ml Balance 1230 ml GME ATTESTATION GME ATTESTATION My faculty preceptor for this patient encounter was physically present during the encounter and was fully available. All aspects of the patient interview, examination, medical decision making process, and medical care plan development were reviewed and approved by the faculty preceptor. The faculty preceptor is aware and concurs with the plan as stated in the body of this note and will attest to such by his/her cosignature. ATTENDING NOTE I, Isabel Owens, have independently examined this patient and performed my own physical exam, as well as reviewed the documentation and edited where necessary. I have discussed in detail with the resident / student the findings and plan of treatment as documented by the resident / student and edited their note. I agree with their findings and treatment plan and have edited their documentation. Ms. Moore is a lady who was admitted overnight for N/V and abdominal pain with recurrent carcinomatosis s/p neoadjuvant chemo, debulking, adjuvant chemo and recent relapse recently started on carboplatin and docetaxel last saturday and now found to have extensive peritoneal impants and focal colitis and started on supportive fluids, antiemetics and empiric antibiotics. Oncology was consulted and recommended continued supportive therapy as well as adding a bowel regimen. We will continue to follow the patient during this hospital stay. LUPILLO HARTMAN DO Oct 23, 2019 15:47 ISABEL OWENS MD Oct 24, 2019 07:35
--- NOTE | 2019-10-23 16:58 | CR.PDOC ---
General Date of Consultation: Oct 23, 2019 Referring Provider: MARVEL SHETH MD Attending Physician: USMAN VALLE MD Consultation ONCOLOGY CONSULT REASON FOR CONSULTATION/CHIEF COMPLAINT: Recurrent primary peritoneal carcinoma with postchemotherapy symptoms consisting of refractory nausea, dehydration and constipation HISTORY OF PRESENT ILLNESS: My pleasure to see Mrs. Moore in the hospital for consultation. This patient was seen by Dr. Lan and is co-managed with Dr. Gomes. Patient has wilver relapse of her papillary serous carcinoma primary peritoneal disease. Patient h as significant tumor burden and ascites Patient restarted systemic palliative therapy with carboplatin and Doxil chemotherapy Patient initially diagnosed 04/11/2018 with primary peritoneal carcinomatosis. Patient did have diagnosis 3 disease and underwent neoadjuvant carboplatinum AUC of 6 with paclitaxel 175 mm meter squared 4 cycles from May 2018 through July 2018. This was followed by debulking surgery with an R0 resection on 08/07/2018. Patient had adjuvant chemotherapy with 2 cycles of carboplatin and paclitaxel from 08/27/2018 to 10/06/2017 CT scan reviewed. No evidence of vital organ involvement. Expected progression of disease as patient just started palliative therapy. This is not concerning at all. He expects nice response rate from palliative chemoradiotherapy. We will consider modifying next cycle of therapy either Doxil alone or reduced dose carboplatinum to help alleviate side effects pending clinical course. PAST MEDICAL HISTORY Chemotherapy-induced peripheral neuropathy [id number] diabetes mellitus Retinopathy status post laser Dyslipidemia Chronic obstructive pulmonary disease (COPD). Degenerative disk disease with dorsal column stimulator. Anxiety. Vitamin D deficiency. Peripheral neuropathy secondary to paclitaxel. Hypertension. PAST SURGICAL HISTORY Cancer debulking surgery Tubal ligation MediPort placement Left foot wound repair Left foot fracture repair Lumbar surgery Dorsal stimulator placement Appendectomy. Social history [id number] history of tobacco abuse stopped in September 2019 Nondrinker nonsmoker 3 para 3 with one FAMILY HISTORY Father age 84, patients from a fall with history of colon cancer Mother age 74 from small cell carcinoma ALLERGIES: Please see below. HOME MEDICATIONS: Please see below. REVIEW OF SYSTEMS: 15 point review of systems Positive for constipation 5 days, refractory nausea, emesis, abdominal pain and failure to thrive PHYSICAL EXAMINATION: VITAL SIGNS: Please see below. GENERAL APPEARANCE: Alert oriented in mild distress HEENT: Mucosa dry no lesions RESPIRATORY: Clear with some basal crackles CARDIOVASCULAR: Regular rate no significant murmur. Port present right upper chest ABDOMEN: Wilver ascites with tenderness on palpation without rebound. EXTREMITIES: 1+ bilateral edema NEUROLOGICAL: Moving all extremities PSYCHIATRIC: Anxious LABORATORY DATA: Please see below. ASSESSMENT/PLAN: 1. Recurrent primary needle carcinomatosis status post neoadjuvant chemotherapy, debulking surgery, adjuvant chemotherapy now with relapse disease on carboplatin and Doxil.. 2. Refractory nausea in the setting of constipation 3. Dehydration 4. Focal colitis of uncertain characterization with no evidence of C. difficile infection given constipation no RECOMMENDATIONS 1. Recommend resumption bowel regime. Would recommend magnesium citrate x 1 followed by Colace with senna one twice a day. 2. Continue IV fluids 3. Continue antiemetics and Decadron 4. May access port Expect improvement in the next several days Patient has a high chance for response Again changes on CT scan are irrelevant as progression as expected without treatment. The important part is that there is no vital organ involvement at this particular juncture Ascites will continue for quite some time and will worsen while patient in the hospital as she is receiving IV fluids We'll follow the patient along with you Thank you kindly for consult Total time in care 50 minutes with more than 50% counseling, and review of records Vital Signs/I&O Vital Signs Date Time Temp Pulse Resp B/P (MAP) Pulse Ox O2 Delivery O2 Flow Rate FiO2 10/23/19 14:00 98.1 86 18 136/72 (93) 98 Room Air I&O- Last 24 Hours up to 6 AM 10/23/19 06:00 Intake Total 1480 ml Output Total 250 ml Balance 1230 ml Laboratory Data Labs 24H Laboratory Tests 2 10/22/19 22:44: Immature Granulocyte % (Auto) , Neutrophils (%) (Auto) , Nucleated Red Blood C ells % (auto) 0.0, Neutrophils 84H, Lymphocytes (Manual) 6L, Monocytes (Manual) 6H, Eosinophils (Manual) 4H, Platelet Estimate DECREASED, Lactic Acid Level 0.9, Total Bilirubin 0.7, Direct Bilirubin 0.3H, Aspartate Amino Transf (AST/SGOT) 27, Alanine Aminotransferase (ALT/SGPT) 27, Alkaline Phosphatase 170H, Total Protein 6.3L, Albumin 2.7L, Albumin/Globulin Ratio 0.75L, Lipase 141 10/22/19 23:02: POC Glucose (Misc Panel) 170H, POC Sodium (Misc Panel) 134L, POC Potassium (Misc Panel) 4.5, POC Chloride (Misc Panel) 99, POC Total CO2 (Misc Panel) 23.0, POC Blood Urea Nitrogen (Misc Panel 19, POC Ionized Calcium (Misc Panel) 4.8, POC Creatinine (Misc Panel) 0.7, POC Hematocrit (Misc Panel) 33.0L 10/23/19 05:14: Nucleated Red Blood Cells % (auto) 0.0, Anion Gap 8, Glomerular Filtration Rate > 60.0, Calcium Level 8.2L, Magnesium Level 1.9 10/23/19 11:54: Bedside Glucose (Misc Panel) 201H CBC/BMP Laboratory Tests 10/22/19 22:44 10/23/19 05:14 Allergies Coded Allergies: Sulfa (Sulfonamide Antibiotics) (Verified Allergy, Unknown, 11/24/18) latex (Verified Allergy, Unknown, 11/24/18) piroxicam (Verified Allergy, Unknown, 11/24/18) takes aspirin at home pseudoephedrine (Verified Allergy, Unknown, 11/24/18) sulfamethoxazole (Verified Allergy, Unknown, 11/24/18) terfenadine (Verified Allergy, Unknown, 11/24/18) trimethoprim (Verified Allergy, Unknown, 11/24/18) Home Medications Scheduled Dexamethasone (Decadron) 4 Mg Tablet, 8 MG PO DAILY, (Reported) FOR THREE DAYS FOLLOWING CHEMO. LAST CHEMO ON 10/16/2019 Famotidine (Famotidine) 40 Mg Tablet, 40 MG PO DAILY, (Reported) Gabapentin (Gabapentin) 300 Mg Capsule, 300 MG PO BID, (Reported) Lisinopril (Lisinopril) 10 Mg Tablet, 10 MG PO QHS, (Reported) Metformin HCl (Metformin HCl) 500 Mg Tab, 1,000 MG PO BID, (Reported) Rosuvastatin Calcium (Rosuvastatin Calcium) 10 Mg Tablet, 10 MG PO QHS, (Reported) Scheduled PRN Hydrocodone/Acetaminophen (Hydrocodone-Acetamin 5-325 mg) 1 Each Tablet, 1 TAB PO QID PRN for PAIN, (Reported) Ondansetron HCl (Ondansetron HCl) 4 Mg Tablet, 4 MG PO Q4H PRN for NAUSEA OR VOMITING, (Reported) USMAN VALLE MD Oct 23, 2019 16:41
[2019-10-23] MEDS ORDERED: MAGNESIUM CITRATE 300 ML BTL PO ONE (18:00)
[2019-10-23 21:00] VITALS: BP 118/58
[2019-10-23] MEDS: SENOKOT S TAB PO SCH (21:13)
[2019-10-23 22:00] VITALS: BP 108/69
[2019-10-24] MEDS: METOCLOPRAMIDE INJ 10MG/2ML VIAL (J2765 PER 1) IV SCH ×4 (00:09→17:36)
[2019-10-24] MEDS: ONDANSETRON 4MG/2ML VIAL (J2405 PER 1MG) IV SCH ×4 (02:13→20:24)
[2019-10-24 05:48] LABS: HEMOGLOBIN 11.3 g/dl (12.0-15.5); MEAN CORPUSCULAR HEMOGLOBIN 28.5 pg (27.0-33.0); MEAN CORPUSCULAR HGB CONC 33.2 g/dl (32.0-36.5); MEAN CORPUSCULAR VOLUME 85.6 fl (80.0-96.0); PLATELET COUNT, AUTOMATED 157 10^3/uL (150-450); RED BLOOD COUNT 3.97 10^6/uL (4.00-5.40); WHITE BLOOD COUNT 7.3 10^3/uL (4.0-10.0)
[2019-10-24 06:00] VITALS: BP 98/60
[2019-10-24 06:15] LABS: BLOOD UREA NITROGEN 12 MG/DL (7-18); CALCIUM LEVEL 8.3 MG/DL (8.5-10.1); CARBON DIOXIDE LEVEL 21 MEQ/L (21-32); CHLORIDE LEVEL 106 MEQ/L (98-107); CREATININE FOR GFR 0.69 MG/DL (0.55-1.30); GLOMERULAR FILTRATION RATE > 60.0 (>51); GLUCOSE, FASTING 181 MG/DL (70-100); POTASSIUM SERUM 3.7 MEQ/L (3.5-5.1); SODIUM LEVEL 136 MEQ/L (136-145)
[2019-10-24] MEDS ORDERED: NS 500 ML IV ONE (06:30)
[2019-10-24 07:20] VITALS: BP 112/70
[2019-10-24] MEDS: HumaLOG INSULIN (NovoLOG) PER UNIT SC SCH ×4 (08:08→20:57)
[2019-10-24] MEDS: FAMOTIDINE 20 MG TAB PO SCH (08:08)
[2019-10-24] MEDS: GABAPENTIN 300 MG CAP PO SCH ×2 (08:08→20:20)
[2019-10-24] MEDS ORDERED: PROCHLORPERAZINE 10MG/2ML VIAL (J0780 PER 1) IV PRN (08:45)
[2019-10-24] MEDS: SENOKOT S TAB PO SCH ×2 (09:00→20:20)
[2019-10-24] MEDS ORDERED: diphenhydrAMINE 50MG CAP PO PRN (09:30)
[2019-10-24] MEDS: KCL 10MEQ IN D5/0.45NS 1000ML 1,000 ML IV SCH ×2 (09:41→20:23)
[2019-10-24] MEDS ORDERED: MORPHINE 2 MG/ML 1ML VIAL (J2270) IV PRN (10:45)
[2019-10-24 14:00] VITALS: BP 112/70
[2019-10-24] MEDS: MORPHINE 4 MG/ML 1ML VIAL/SYRINGE (J2270) IV PRN ×2 (15:15→20:30)
[2019-10-24] MEDS: LIDOCAINE 5% (LIDODERM) PATCH TD SCH (15:16)
--- NOTE | 2019-10-24 16:36 | IPNPDOC ---
Text Note Date of Service The patient was seen on 10/24/19. NOTE S: Pt examined at bedside. Has good po intake of 2+L, but still has same amt of abd pain and nausea. No reported events overnight. Hypotension this am reponded well to IVF. No blood loss. No fever or white count. PE: Vitals: see below General: NAD, A&Ox3, in mild distress due to abdominal pain and nausea, appears older than stated age HEENT: NCAT, EOMI, anicteric sclera, neck supple CV: RRR, 2/6 systolic murmur, no clicks or rub. Trace edema RESP: CTAB, no w/r/r. Mid-line healed scar from dorsal column stimulator ABD: soft, ND. Diffusely tendersam as prior days. No rebound or rigidity or guarding. EXTREMITIES: 2+ radial pulses b/l, able to move all extremities NEURO: no focal deficits. Able to follow commands A/P: This is a 54-year-old female with relapse of ovarian cancer found initially with mets to the peritoneum 04/2018, underwent chemo & surgery at [facility] with improvement in Mar 2019, found to have recurrence recently in Jun 2019. In September 22, 2019, imaging reviewed new ascites with evidence of peritoneal and omental metastases. Normally follows with Dr. Lan. Presented initially to ER October 20 for worsening nausea, vomiting, abdominal pain after she started her first chemotherapy session this past Saturday. Was sent home after IVF, Ceftriaxone x1, and antiemetics, now returns for worsening of her GI complaints. 1. Nausea, vomiting, abdominal pain -started after 1st chemo session Saturday10/16/19 for papillary serous carcinoma: Carboplatin & Doxorubicin - CT abd/pelvis 10/21/19 Worsening peritoneal carcinomatosis. 2. Mild thickening involving the descending colon and sigmoid colon, nonspecific colitis. 3. Small volume of ascites, mildly progressed from prior examination. - likely 2/2 expansion of malignancy and secondary inflammation & constipation - afebrile, no fever or chills. Will monitor without abx - supportive care: IVF, antiemetics, pain control - encourage po intake - full liquids diet. Advance as tolerated. Monitor e-lytes & vol status 2. Peritoneal carcinomatosis: - Fallopian tube cancer s/p total laparoscopic hysterectomy, bilateral salpingo- oophorectomy and omentectomy - cancer relapse, follows with [facility] & Dr. Lan - restarted chemo, 1st session as noted above - Oncologist Dr. Cotto consulted, appreciate input: continue supportive care, bowel regimen of magnesium citrate x1 and Senekot-S bid. Expect improvement soon, high chance of response - work with PT/OT NIDDM2 -hold metformin - ISS w/ hypoglycemic protocol Hyperlipidemia - continue statin COPD - stable. Room air at baseline DVT ppx: Lovenox sc DISPO: pending clinical improvement, PT/OT. VS,Fishbone, I+O VS, Fishbone, I+O Laboratory Tests 10/24/19 05:20 Vital Signs Date Time Temp Pulse Resp B/P (MAP) Pulse Ox O2 Delivery O2 Flow Rate FiO2 10/24/19 15:15 20 Room Air 10/24/19 14:00 98.5 108 112/70 (84) 97 I&O- Last 24 Hours up to 6 AM 10/24/19 06:00 Intake Total 3590 ml Output Total 625 ml Balance 2965 ml GME ATTESTATION GME ATTESTATION My faculty preceptor for this patient encounter was physically present during the encounter and was fully available. All aspects of the patient interview, examination, medical decision making process, and medical care plan development were reviewed and approved by the faculty preceptor. The faculty preceptor is aware and concurs with the plan as stated in the body of this note and will attest to such by his/her cosignature. ATTENDING NOTE I, Isabel Owens, have independently examined this patient and performed my own physical exam, as well as reviewed the documentation and edited where necessary. I have discussed in detail with the resident / student the findings and plan of treatment as documented by the resident / student and edited their note. I agree with their findings and treatment plan and have edited their documentation. LUPILLO HARTMAN DO Oct 24, 2019 16:36 ISABEL OWENS MD Oct 24, 2019 20:51
[2019-10-24] MEDS: ROSUVASTATIN 10 MG TAB (CRESTOR) PO SCH (20:20)
[2019-10-24] MEDS: lisinopriL 10 MG TAB PO SCH (20:23)
[2019-10-24] MEDS ORDERED: **NOTE PATIENT COMMENT** MISC XX SCH (21:00)
[2019-10-25] MEDS: METOCLOPRAMIDE INJ 10MG/2ML VIAL (J2765 PER 1) IV SCH ×3 (00:46→12:00)
[2019-10-25] MEDS: MORPHINE 4 MG/ML 1ML VIAL/SYRINGE (J2270) IV PRN ×2 (00:47→06:05)
[2019-10-25] MEDS: ONDANSETRON 4MG/2ML VIAL (J2405 PER 1MG) IV SCH ×2 (02:58→08:14)
[2019-10-25 05:55] LABS: HEMATOCRIT 29.7 % (36.0-47.0); HEMOGLOBIN 9.7 g/dl (12.0-15.5); MEAN CORPUSCULAR HEMOGLOBIN 28.4 pg (27.0-33.0); MEAN CORPUSCULAR HGB CONC 32.7 g/dl (32.0-36.5); MEAN CORPUSCULAR VOLUME 87.1 fl (80.0-96.0); PLATELET COUNT, AUTOMATED 138 10^3/uL (150-450); RED BLOOD COUNT 3.41 10^6/uL (4.00-5.40)
[2019-10-25 06:00] VITALS: BP 118/68
[2019-10-25 06:28] LABS: BLOOD UREA NITROGEN 13 MG/DL (7-18); CALCIUM LEVEL 7.4 MG/DL (8.5-10.1); CARBON DIOXIDE LEVEL 23 MEQ/L (21-32); CHLORIDE LEVEL 104 MEQ/L (98-107); CREATININE FOR GFR 0.68 MG/DL (0.55-1.30); GLOMERULAR FILTRATION RATE > 60.0 (>51); GLUCOSE, FASTING 206 MG/DL (70-100); POTASSIUM SERUM 4.7 MEQ/L (3.5-5.1); SODIUM LEVEL 134 MEQ/L (136-145)
[2019-10-25] MEDS: SENOKOT S TAB PO SCH (08:14)
[2019-10-25] MEDS: LIDOCAINE 5% (LIDODERM) PATCH TD SCH (08:14)
[2019-10-25] MEDS: GABAPENTIN 300 MG CAP PO SCH (08:14)
[2019-10-25] MEDS: FAMOTIDINE 20 MG TAB PO SCH (08:14)
[2019-10-25] MEDS: HumaLOG INSULIN (NovoLOG) PER UNIT SC SCH ×2 (08:14→12:47)
[2019-10-25] MEDS ORDERED: SENN-52 PO (11:01)
[2019-10-25] MEDS ORDERED: LIDO5TD TD (11:01)
--- NOTE | 2019-10-25 12:42 | IPNPDOC ---
Text Note Date of Service The patient was seen on 10/25/19. NOTE Subjective: -Feels so much better, eager to go home -Taking adequate PO -Abdominal pain is so much better now -Remains afebrile and hemodynamically stable PE: Vitals: see below General: NAD, A&Ox3, no distress this morning HEENT: NCAT, EOMI, anicteric sclera, neck supple CV: RRR, 2/6 systolic murmur, no clicks or rub. Trace edema RESP: CTAB, no w/r/r. Mid-line healed scar from dorsal column stimulator ABD: Normoactive bowel sounds, soft, distended without TTP, no rebound or guarding. EXTREMITIES: 2+ radial pulses b/l, able to move all extremities NEURO: no focal deficits. AOx3 Assessment: 54-year-old female with relapse of ovarian cancer recurrent w/ carcinomatosis s/p neoadjuvant chemo, debulking, adjuvant chemo and recent relapse recently started on carboplatin and docetaxel last saturday and now found to have extensive peritoneal implants and focal colitis and started on supportive fluids, antiemetics and empiric antibiotics. Oncology was consulted and recommended continued supportive therapy as well as adding a bowel regimen. We discontinued antibiotics with no evidence of infection at this time. At this time, will plan to discharge her home with antiemetics and a bowel regimen. 1. 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 - N/V/D likely 2/2 post chemo symptoms vs. POD vs. constipation - afebrile, no fever or chills. No abx - supportive care: antiemetics, pain control and bowel regimen 2. Peritoneal carcinomatosis: - Fallopian tube cancer s/p total laparoscopic hysterectomy, bilateral salpingo- oophorectomy and omentectomy, neoadjuvant chemo and adjuvant chemo - cancer relapse, follows with [facility] & Dr. 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 Reported that despite extensive abdominal disease, she has a good prognosis with high likely to respond to the carboplatin/docetaxel - cleared by PT NIDDM2 - holding metformin - ISS w/ hypoglycemic protocol Hyperlipidemia - continue statin COPD - stable. DVT ppx: Lovenox sc DISPO: cleared by PT, discharging her home today. VS,Fishbone, I+O VS, Fishbone, I+O Laboratory Tests 10/25/19 05:21 Vital Signs Date Time Temp Pulse Resp B/P (MAP) Pulse Ox O2 Delivery O2 Flow Rate FiO2 10/25/19 06:20 18 10/25/19 06:00 97.8 94 118/68 (85) 97 Room Air I&O- Last 24 Hours up to 6 AM 10/25/19 06:00 Intake Total 1380 ml Balance 1380 ml JEFF OWENS MD Oct 25, 2019 08:20
--- NOTE | 2019-10-25 13:08 | DS.PDOC ---
Discharge Summary General Date of Admission Oct 22, 2019 at 23:56 Date of Discharge 10/25/2019 Attending Physician: JEFF OWENS MD Discharge Summary PROCEDURES PERFORMED DURING STAY: None ADMITTING DIAGNOSES: 1. Abdominal pain DISCHARGE DIAGNOSES: 1. Metastatic ovarian cancer with peritoneal carcinomatosis currently undergoing chemotherapy with carboplatin and Doxil. 2. Post chemotherapy nausea and emesis 3. Diabetes. 4. Chronic obstructive pulmonary disease (COPD). 5. Hyperlipidemia. 6. Degenerative disk disease with dorsal column stimulator. 7. Anxiety. 8. Vitamin D deficiency. 9. 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 10. 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 11. Hypertension. COMPLICATIONS/CHIEF COMPLAINT: Malignant Neoplasm Of Ovary Metastatic To Peritoneum HISTORY OF PRESENT ILLNESS: 54-year-old female with relapse of ovarian cancer recurrent w/ carcinomatosis s/p neoadjuvant chemo, debulking, adjuvant chemo and recent relapse recently started on carboplatin and docetaxel last Saturday and presented with abdominal pain, nausea and emesis. HOSPITAL COURSE: She presented hemodynamically stable and afebrile, without leukocytosis with a CT A/P that showed extensive peritoneal implants/carcinomatosis and focal colitis and was started on supportive fluids, antiemetics and empiric antibiotics. Without patricia evidence of infection, we discontinued antibiotics and oncology was consulted and recommended continued supportive therapy with fluids, antiemetics, magnesium citrate and adding a bowel regimen. We slowly advanced her diet,constipation resolved, pain improved and she tolerated a regular diet and is now being discharged home with close PCP and oncology follow up. DISCHARGE MEDICATIONS: Please see below. ALLERGIES: Please see below. PHYSICAL EXAMINATION ON DISCHARGE: VITAL SIGNS: Please see below. General: NAD, A&Ox3 HEENT: NCAT, EOMI, anicteric sclera, neck supple CV: RRR, 2/6 systolic murmur, no clicks or rub. Trace edema RESP: CTAB, no w/r/r. Mid-line healed scar from dorsal column stimulator ABD: soft, distended as prior, mildly non tender today, no rebound or guarding NEURO: no focal deficits. Able to follow commands, normal gait LABORATORY DATA: Please see below. IMAGING: CT A/P: 1. Worsening peritoneal carcinomatosis. 2. Mild thickening involving the descending colon and sigmoid colon, nonspecific colitis. 3. Small volume of ascites, mildly progressed from prior examination. PROGNOSIS: Fair, per oncology ACTIVITY: As tolerated DIET: regular, as tolerated DISCHARGE PLAN: Home with supportive antiemetics and bowel regimen, with oncology and PCP follow up DISPOSITION: Home DISCHARGE INSTRUCTIONS: 1. Please take your zofran as needed for nausea and take senna/colace twice daily to prevent constipation ITEMS TO FOLLOWUP ON ON OUTPATIENT: 1. Metastatic ovarian cancer with peritoneal carcinomatosis currently undergoing chemotherapy with carboplatin and Doxil. 2. Post chemotherapy nausea and emesis DISCHARGE CONDITION: Stable TIME SPENT ON DISCHARGE: 34 minutes. Vital Signs/I&Os Vital Signs Date Time Temp Pulse Resp B/P (MAP) Pulse Ox O2 Delivery O2 Flow Rate FiO2 10/25/19 06:20 18 10/25/19 06:00 97.8 94 118/68 (85) 97 Room Air I&O- Last 24 Hours up to 6 AM 10/25/19 06:00 Intake Total 1380 ml Balance 1380 ml Laboratory Data Labs 24H Laboratory Tests 2 10/24/19 16:40: Bedside Glucose (Misc Panel) 264H 10/24/19 20:41: Bedside Glucose (Misc Panel) 256H 10/25/19 05:21: Nucleated Red Blood Cells % (auto) 0.0, Anion Gap 7L, Glomerular Filtration Rate > 60.0, Calcium Level 7.4L, Magnesium Level 2.0 CBC/BMP Laboratory Tests 10/25/19 05:21 FSBS Laboratory Tests Test 10/24/19 16:40 10/24/19 20:41 Range/Units Bedside Glucose (Misc Panel) 264 256 70-105 MG/DL Discharge Medications Scheduled Dexamethasone (Decadron) 4 Mg Tablet, 8 MG PO DAILY, (Reported) FOR THREE DAYS FOLLOWING CHEMO. LAST CHEMO ON 10/16/2019 Famotidine (Famotidine) 40 Mg Tablet, 40 MG PO DAILY, (Reported) Gabapentin (Gabapentin) 300 Mg Capsule, 300 MG PO BID, (Reported) Lidocaine (Lidocaine) 5% Adh..patch, 2 PATCH TD DAILY Lisinopril (Lisinopril) 10 Mg Tablet, 10 MG PO QHS, (Reported) Metformin HCl (Metformin HCl) 500 Mg Tab, 1,000 MG PO BID, (Reported) Rosuvastatin Calcium (Rosuvastatin Calcium) 10 Mg Tablet, 10 MG PO QHS, (Reported) Sennosides/Docusate Sodium (Senna Plus Tablet) 1 Each Tablet, 1 TAB PO BID Scheduled PRN Hydrocodone/Acetaminophen (Hydrocodone-Acetamin 5-325 mg) 1 Each Tablet, 1 TAB PO QID PRN for PAIN, (Reported) Ondansetron HCl (Ondansetron HCl) 4 Mg Tablet, 4 MG PO Q4H PRN for NAUSEA OR VO MITING, (Reported) Allergies Coded Allergies: Sulfa (Sulfonamide Antibiotics) (Verified Allergy, Unknown, 11/24/18) latex (Verified Allergy, Unknown, 11/24/18) piroxicam (Verified Allergy, Unknown, 11/24/18) takes aspirin at home pseudoephedrine (Verified Allergy, Unknown, 11/24/18) sulfamethoxazole (Verified Allergy, Unknown, 11/24/18) terfenadine (Verified Allergy, Unknown, 11/24/18) trimethoprim (Verified Allergy, Unknown, 11/24/18) JEFF OWENS MD Oct 25, 2019 13:08
== END 2019-10-25 13:51 | disposition home health service (06) | DRG 392 ==
LOC: M ED 21:35 → M ED INP 23:56 → ENRESERVDT 10-23 00:29 → ENRESERVTM 10-23 00:29 → M MSPAV 10-23 01:15
PROVIDERS: ADMIT General Practice; ATTEND Internal Medicine
DX: K52.9 Noninfective gastroenteritis and colitis, unspecified (principal); R18.8 Other ascites; R64 Cachexia; C78.6 Secondary malignant neoplasm of retroperitoneum and peritoneum; E86.0 Dehydration; F41.9 Anxiety disorder, unspecified; E11.319 Type 2 diabetes mellitus with unspecified diabetic retinopathy without macular edema; E55.9 Vitamin D deficiency, unspecified; G62.2 Polyneuropathy due to other toxic agents; E11.42 Type 2 diabetes mellitus with diabetic polyneuropathy; I10 Essential (primary) hypertension; K59.00 Constipation, unspecified; E78.5 Hyperlipidemia, unspecified; J44.9 Chronic obstructive pulmonary disease, unspecified; Z87.891 Personal history of nicotine dependence; Z79.84 Long term (current) use of oral hypoglycemic drugs; Z79.899 Other long term (current) drug therapy; Z88.2 Allergy status to sulfonamides; Z88.8 Allergy status to other drugs, medicaments and biological substances; Z91.040 Latex allergy status; Z85.43 Personal history of malignant neoplasm of ovary; T45.1X5A Adverse effect of antineoplastic and immunosuppressive drugs, initial encounter; Z90.710 Acquired absence of both cervix and uterus; Z90.722 Acquired absence of ovaries, bilateral; Z90.79 Acquired absence of other genital organ(s)

== ENCOUNTER 2019-10-27 19:57 | Inpatient (IN) | payer MEDICARE ==
[~2019-10-27] VITALS: Ht 167.6 cm; Wt 73.4 kg
[~2019-10-27 19:57] MED LIST changes: +DECA4TAB PO; +FAMO40TA3 PO; +LIDO5TD TD; +ONDA-83 PO; +SENN-52 PO
[2019-10-27] MEDS ORDERED: NS 500 ML IV ONE (20:30)
[2019-10-27] MEDS ORDERED: ONDANSETRON 4MG/2ML VIAL (J2405 PER 1MG) IV ONE (20:30)
[2019-10-27] MEDS ORDERED: HYDROMORPHONE HCL 0.5 MG/ 0.5 ML SYRINGE (J1170 PER 1) IV PRN (20:30)
[2019-10-27 20:31] VITALS: BP 118/69
[2019-10-27 20:56] LABS: HEMATOCRIT 33.3 % (36.0-47.0); HEMOGLOBIN 10.9 g/dl (12.0-15.5); MEAN CORPUSCULAR HEMOGLOBIN 28.2 pg (27.0-33.0); MEAN CORPUSCULAR HGB CONC 32.7 g/dl (32.0-36.5); MEAN CORPUSCULAR VOLUME 86.3 fl (80.0-96.0); PLATELET COUNT, AUTOMATED 225 10^3/uL (150-450); RED BLOOD COUNT 3.86 10^6/uL (4.00-5.40); WHITE BLOOD COUNT 5.6 10^3/uL (4.0-10.0)
[2019-10-27] MEDS ORDERED: LIDO1PAD TOP (20:58)
[2019-10-27] MEDS ORDERED: SENN-23 PO (20:58)
[2019-10-27 21:13] LABS: ATYPICAL LYMPH 1 % (0-5); BASOPHILS 1 % (0-1); LYMPHOCYTES 21 % (16-44); MONOCYTES 5 % (0-5); NEUTROPHILS 67 % (28-66); PLATELET ESTIMATE NORMAL (NORMAL)
[2019-10-27 21:15] LABS: TOXIC GRANULATION 1+
[2019-10-27 21:19] LABS: ALBUMIN 2.6 GM/DL (3.2-5.2); ALT/SGPT 40 U/L (12-78); BILIRUBIN,DIRECT 0.2 MG/DL (0.0-0.2); BILIRUBIN,TOTAL 0.4 MG/DL (0.2-1.0); BLOOD UREA NITROGEN 13 MG/DL (7-18); CALCIUM LEVEL 8.9 MG/DL (8.5-10.1); CARBON DIOXIDE LEVEL 27 MEQ/L (21-32); CHLORIDE LEVEL 99 MEQ/L (98-107); CREATININE FOR GFR 0.65 MG/DL (0.55-1.30); GLOMERULAR FILTRATION RATE > 60.0 (>51); GLUCOSE, FASTING 154 MG/DL (70-100); LIPASE 124 U/L (73-393); POTASSIUM SERUM 4.4 MEQ/L (3.5-5.1); SODIUM LEVEL 135 MEQ/L (136-145); TOTAL PROTEIN 6.3 GM/DL (6.4-8.2)
[2019-10-27] MEDS ORDERED: ACETAMINOPHEN TAB 650MG DOSE (2X325MG) PO PRN (21:45)
[2019-10-27] MEDS ORDERED: ONDANSETRON 4 MG ORAL DISINTEGRATING TAB (Q0162 PER 1MG) PO PRN (21:45)
[2019-10-27] MEDS ORDERED: LORazepam 1 MG TAB PO PRN (21:45)
[2019-10-27] MEDS ORDERED: BISACODYL 10 MG SUPP PR PRN (21:45)
[2019-10-27] MEDS: MORPHINE 10MG/0.5ML ORAL CONCENTRATE SOLUTION U/D SL PRN (23:03)
--- NOTE | 2019-10-27 23:22 | HPEPDOC ---
[facility] Medical History & Physical Date of Admission Oct 27, 2019 Date of Service: Oct 27, 2019 History and Physical CHIEF COMPLAINT: Worsen Abdominal Pain HISTORY OF PRESENT ILLNESS: This is a 54 year old female presenting for worsen abdominal pain. She was recently see at [facility] from 10/22/2019 to 10/25/19 for abdominal pain and post chemotherapy nausea and emesis. During that admission she was given support supportive fluids, anti-emetics and initially empiric antibiotics. Work up was negative for infection and she was discharged home once she tolerated a regular diet. She is returning today because her abdominal pain is not controlled. Her abdominal discomfort has gotten worse, and her belly size has gotten bigger since she has been discharged as well. She feels like she 8 months . Her appetite has decreased and endorses food is getting stuck in her throat, but will pass through while drinking water. She denies choking on liquid. Patient was very tearful during exam, she states she doesn't want go through the chemotherapy anymore and just want stop being in pain. 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 PAST MEDICAL HISTORY: 1. Metastatic ovarian cancer with peritoneal carcinomatosis currently undergoing chemotherapy with carboplatin and Doxil. 2. Post chemotherapy nausea and emesis 3. Diabetes. 4. Chronic obstructive pulmonary disease (COPD) 5.Hyperlipidemia. 6. Degenerative disk disease with dorsal column stimulator. 7. Anxiety. 8. Vitamin D deficiency. 9. 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 10. 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 11. Hypertension. HOME MEDICATIONS: Please see below. ALLERGIES: Please see below PAST SURGICAL HISTORY: 1. L foot debridement 02/2018 2. L fx ankle 3. tubal ligation 4. C section 5. Appendectomy 6. Dorsal column stimulator 7. 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 Father history of cancer, mother , brother diabetes REVIEW OF SYSTEMS: 10 systems reviewed. Constitutional: Denies fever, chills, night sweats, Admits to weight gain HEENT: Denies headache,, lightheadedness and dizziness.. Skin: Denies any rashes or lesions Pulmonary: Denies dyspnea, cough, wheezing Cardiac: Denies chest pain, palpitations, orthopnea, PND, edema, GI: Admits to nausea, vomiting improved with Zofran, worsen abdominal pain and increased abdominal girth, constipation, Denies diarrhea,, melena, hematochezia : Denies dysuria, hematuria, retention MSK: Denies new joint pains. Endorses generalized weakness from pain Neurologic: Denies new numbness/tingling, ?endorses baseline LE neuropathy PHYSICAL EXAMINATION: VITAL SIGNS: See below GENERAL: Pleasant 54 year old female laying in bed awake alert oriented speaking in complete sentences no acute distress HEENT: Atraumatic, normocephalic, Moist mucous membranes, No JVD CARDIOVASCULAR: S1 S2 regular no additional heart sounds appreciated. RESPIRATORY: Clear to auscultation bilaterally. ABDOMINAL: Hypoactive bowel sounds, distended abdomen, increased tympany and dullness with percussion. Tenderness to palpation diffusely. No rebounding EXTREMITIES: No lower extremity edema or calf tenderness. NEUROLOGICAL: no gross focal deficits appreciated PSYCHOLOGICAL: Appropriate, Tearful initially but once pain in controlled with Dilaudid in the ER, affect was more appropriate. LABORATORY DATA: See below. MICROBIOLOGY: Please see below. IMAGING: None ASSESSMENT / PROBLEMS: 1. Recurrence of Metastatic ovarian cancer with peritoneal carcinomatosis currently undergoing chemotherapy with carboplatin and Doxil. 2. Post chemotherapy nausea and emesis 3. Diabetes. 4. Chronic obstructive pulmonary disease (COPD) 5.Hyperlipidemia. 6. Degenerative disk disease with dorsal column stimulator. 7. Anxiety. 8. Vitamin D deficiency. 9. 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 10. 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 11. Hypertension. PLAN: After extensive discussion about wishes, Mrs. 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 Her healthcare proxy, Maribeth was called with her wishes, and all her questions were answered as well. -Hospice/palliative care consult placed -Tylenol and Roxanol order for pain control can titrate to achieve adequate control -Ativan ordered for anxiety -Regular diet -States would is she to see if she is a candidate for palliative paracentesis if it would help with her abdominal distention. I informed that the risk of reaccumulation of fluid requiring recurrent paracentesis with increased risk of infection. She states she would like to think further about it in the AM. -Updated MOLST form in the Chart to reflect patient DNR/DNI/WATERWORKS PUMP STATION OPERATOR wishes -Discontinued all nonessential medications DVT PROPHYLAXIS: Not indicated for WATERWORKS PUMP STATION OPERATOR DISPOSITION: Admit to Med-Surg Vital Signs Vital Signs Date Time Temp Pulse Resp B/P (MAP) Pulse Ox O2 Delivery O2 Flow Rate FiO2 10/27/19 22:12 104 97 Room Air 10/27/19 21:01 18 10/27/19 20:58 10/27/19 19:58 97.8 Laboratory Data Labs 24H Laboratory Tests 2 10/27/19 20:44: Neutrophils (%) (Auto) , Nucleated Red Blood Cells % (auto) 0.0, Neutrophils 67H, Band Neutrophils 5, Lymphocytes (Manual) 21, Monocytes (Manual) 5, Basophils (Manual) 1, Atypical Lymphocytes 1, Toxic Granulation 1+, Platelet Estimate NORMAL, Anion Gap 9, Glomerular Filtration Rate > 60.0, Lactic Acid Level 0.8, Calcium Level 8.9#, Total Bilirubin 0.4, Direct Bilirubin 0.2, Aspartate Amino Transf (AST/SGOT) 23, Alanine Aminotransferase (ALT/SGPT) 40, Alkaline Phosphatase 162H, Total Protein 6.3L, Albumin 2.6L, Albumin/Globulin Ratio 0.70L, Lipase 124 CBC/BMP Laboratory Tests 10/27/19 20:44 Microbiology Microbiology 10/27/19 Blood Culture, Received Pending 10/27/19 Blood Culture, Received Pending Home Medications Scheduled Dexamethasone (Decadron) 4 Mg Tablet, 8 MG PO DAILY FOR THREE DAYS FOLLOWING CHEMO. LAST CHEMO ON 10/16/2019 Famotidine (Famotidine) 40 Mg Tablet, 40 MG PO QPM Gabapentin (Gabapentin) 300 Mg Capsule, 300 MG PO BID Lidocaine (Lidocaine) 5% Adh..patch, 2 PATCH TOP DAILY APPLIED TO STOMACH AND BACK Lisinopril (Lisinopril) 10 Mg Tablet, 10 MG PO QHS Metformin HCl (Metformin HCl) 500 Mg Tab, 1,000 MG PO BID Rosuvastatin Calcium (Rosuvastatin Calcium) 10 Mg Tablet, 10 MG PO DAILY Sennosides/Docusate Sodium (Senna-S Tablet) 1 Each Tablet, 1 TAB PO BID Scheduled PRN Hydrocodone/Acetaminophen (Hydrocodone-Acetamin 5-325 mg) 1 Each Tablet, 1 TAB PO TID PRN for PAIN Ondansetron HCl (Ondansetron HCl) 4 Mg Tablet, 4 MG PO Q4H PRN for NAUSEA OR VOMITING Allergies Coded Allergies: latex (Verified Allergy, Unknown, 11/24/18) piroxicam (Verified Allergy, Unknown, 11/24/18) takes aspirin at home Sulfa (Sulfonamide Antibiotics) (Verified Adverse Reaction, Unknown, HEART RACES, 10/27/19) pseudoephedrine (Verified Adverse Reaction, Unknown, HEART RACES, 10/27/19) sulfamethoxazole (Verified Adverse Reaction, Unknown, HEART RACES, 10/27/19) terfenadine (Verified Adverse Reaction, Unknown, HEART RACES, 10/27/19) trimethoprim (Verified Adverse Reaction, Unknown, HEART RACES, 10/27/19) GME ATTESTATION GME ATTESTATION My faculty preceptor for this patient encounter was physically present during the encounter and was fully available. All aspects of the patient interview, exa mination, medical decision making process, and medical care plan development were reviewed and approved by the faculty preceptor. The faculty preceptor is aware and concurs with the plan as stated in the body of this note and will attest to such by his/her cosignature. ATTENDING NOTE I, Ashley Melissa, have independently examined this patient and performed my own physical exam, as well as reviewed the documentation and edited where necessary. I have discussed in detail with the resident / student the findings and plan of treatment as documented by the resident / student and edited their note. I agree with their findings and treatment plan and have edited their documentation. I will continue to follow the patient during this hospital stay. MARIIA TELLEZ DO Oct 27, 2019 23:22 ASHLEY MELISSA MD Oct 28, 2019 03:30
[2019-10-28] MEDS: MORPHINE 10MG/0.5ML ORAL CONCENTRATE SOLUTION U/D SL PRN ×4 (02:19→12:40)
[2019-10-28] MEDS ORDERED: MORP20SO3 PO (09:39)
[2019-10-28] MEDS ORDERED: LORA0.5T5 PO (09:39)
[2019-10-28] MEDS ORDERED: HYOS125TA PO (09:39)
[2019-10-28 09:40] LABS: INR 1.2; PROTHROMBIN TIME 14.9 SECONDS (11.8-14.0)
--- NOTE | 2019-10-28 09:43 | REP ---
LIMITED ULTRASOUND ABDOMEN: Real-time sonographic evaluation of the abdomen performed to evaluate for ascites prior to a scheduled paracentesis. There is a small amount of ascites throughout the abdomen. There is insufficient fluid for therapeutic benefit of paracentesis. The scheduled paracentesis is postponed. Electronically Signed by Joe Dominguez MD 10/28/2019 11:17 A
--- NOTE | 2019-10-28 12:12 | DS.PDOC ---
Discharge Summary General Date of Admission Oct 27, 2019 at 22:05 Date of Discharge 10/28/19 Discharge Summary PROCEDURES PERFORMED DURING STAY: [None]. 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 Chronic obstructive pulmonary disease (COPD) Hyperlipidemia. Degenerative disk disease with dorsal column stimulator. Anxiety. Vitamin D deficiency. 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 Hypertension. COMPLICATIONS/CHIEF COMPLAINT: Intractable Abdominal Pain,Peritoneal Carcinoma. HISTORY OF PRESENT ILLNESS: See history and physical HOSPITAL COURSE: This is a 54 year old female presenting for worsen abdominal pain. She was recently see at [facility] from 10/22/2019 to 10/25/19 for abdominal pain and post chemotherapy nausea and emesis. During that admission she was given support supportive fluids, anti-emetics and initially empiric antibiotics. Work up was negative for infection and she was discharged home once she tolerated a regular diet. She is returns this time because her abdominal pain is not controlled. Her abdominal discomfort has gotten worse, and her belly size has gotten bigger since she has been discharged as well. She feels like she 8 months . Her appetite has decreased and endorses food is getting stuck in her throat, but will pass through while drinking water. She denies choking on liquid. Patient was very tearful during exam, she states she doesn't want go through the chemotherapy anymore and just want stop being in pain. After extensive discussion about wishes, Mrs. Moore, decided she would like to be HEAD ESTHETICIAN with hospice. Her healthcare proxy, Maribeth was called with her wishes, and all her questions were answered as well. Hospice was consulted and they accept her to their service. Patient is being discharged home with home hospice set up. DISCHARGE MEDICATIONS: Please see below. ALLERGIES: Please see below. PHYSICAL EXAMINATION ON DISCHARGE: VITAL SIGNS: Please see below. VITAL SIGNS: See below GENERAL: Pleasant 54 year old female laying in bed awake alert oriented speaking in complete sentences no acute distress HEENT: Atraumatic, normocephalic, Moist mucous membranes, No JVD CARDIOVASCULAR: S1 S2 regular no additional heart sounds appreciated. RESPIRATORY: Clear to auscultation bilaterally. ABDOMINAL: Hypoactive bowel sounds, distended abdomen, increased tympany and dullness with percussion. Tenderness to palpation diffusely. No rebounding EXTREMITIES: No lower extremity edema or calf tenderness. NEUROLOGICAL: no gross focal deficits appreciated PSYCHOLOGICAL: Appropriate, Tearful initially but once pain in controlled with Dilaudid in the ER, affect was more appropriate. LABORATORY DATA: Please see below. ACTIVITY: [As tolerated]. DIET: As tolerated DISCHARGE PLAN: Home hospice DISCHARGE INSTRUCTIONS: Follow up with Hospice. DISCHARGE CONDITION: [Stable]. TIME SPENT ON DISCHARGE: 35 minutes. Vital Signs/I&Os Vital Signs Date Time Temp Pulse Resp B/P (MAP) Pulse Ox O2 Delivery O2 Flow Rate FiO2 10/28/19 10:07 18 10/27/19 22:12 104 97 Room Air 10/27/19 20:58 10/27/19 19:58 97.8 I&O- Last 24 Hours up to 6 AM 10/28/19 06:00 Intake Total 1520 ml Balance 1520 ml Laboratory Data Labs 24H Laboratory Tests 2 10/27/19 20:44: Neutrophils (%) (Auto) , Nucleated Red Blood Cells % (auto) 0.0, Neutrophils 67H, Band Neutrophils 5, Lymphocytes (Manual) 21, Monocytes (Manual) 5, Basophils (Manual) 1, Atypical Lymphocytes 1, Toxic Granulation 1+, Platelet E stimate NORMAL, Anion Gap 9, Glomerular Filtration Rate > 60.0, Lactic Acid Level 0.8, Calcium Level 8.9#, Total Bilirubin 0.4, Direct Bilirubin 0.2, Aspartate Amino Transf (AST/SGOT) 23, Alanine Aminotransferase (ALT/SGPT) 40, Alkaline Phosphatase 162H, Total Protein 6.3L, Albumin 2.6L, Albumin/Globulin Ratio 0.70L, Lipase 124 10/28/19 09:18: Prothrombin Time 14.9H, Prothromb Time International Ratio 1.20 CBC/BMP Laboratory Tests 10/27/19 20:44 Microbiology Microbiology 10/27/19 Blood Culture, Received Pending 10/27/19 Blood Culture, Received Pending Discharge Medications Scheduled Famotidine (Famotidine) 40 Mg Tablet, 40 MG PO QPM, (Reported) Gabapentin (Gabapentin) 300 Mg Capsule, 300 MG PO BID, (Reported) Lidocaine (Lidocaine) 5% Adh..patch, 2 PATCH TOP DAILY, (Reported) APPLIED TO STOMACH AND BACK Sennosides/Docusate Sodium (Senna-S Tablet) 1 Each Tablet, 1 TAB PO BID, (Reported) Scheduled PRN Hydrocodone/Acetaminophen (Hydrocodone-Acetamin 5-325 mg) 1 Each Tablet, 1 TAB PO TID PRN for PAIN, (Reported) Hyoscyamine Sulfate (Hyoscyamine Sulfate) 0.125 Mg Tab.subl, 0.125 MG PO Q4HP PRN for TERMINAL SECRETIONS Use sublingually if unable to swallow Lorazepam (Lorazepam) 0.5 Mg Tablet, 0.5 MG PO Q4HP PRN for ANXIETY/AGITATION Use sublingually if unable to swallow Morphine Sulfate (Morphine Sulfate) 100 Mg/5 Ml Solution, 0.25-1 ML PO Q2H PRN for PAIN OR DYSPNEA Use sublingually if unable to swallow Ondansetron HCl (Ondansetron HCl) 4 Mg Tablet, 4 MG PO Q4H PRN for NAUSEA OR VOMITING, (Reported) Allergies Coded Allergies: latex (Verified Allergy, Unknown, 11/24/18) piroxicam (Verified Allergy, Unknown, 11/24/18) takes aspirin at home Sulfa (Sulfonamide Antibiotics) (Verified Adverse Reaction, Unknown, HEART RACES, 10/27/19) pseudoephedrine (Verified Adverse Reaction, Unknown, HEART RACES, 10/27/19) sulfamethoxazole (Verified Adverse Reaction, Unknown, HEART RACES, 10/27/19) terfenadine (Verified Adverse Reaction, Unknown, HEART RACES, 10/27/19) trimethoprim (Verified Adverse Reaction, Unknown, HEART RACES, 10/27/19) GENEAV LANCASTER MD Oct 28, 2019 12:12
== END 2019-10-28 12:44 | disposition hospice, home (50) | DRG 948 ==
LOC: M ED 19:57 → M ED INP 22:05 → ENRESERVTM 22:15 → ENRESERVDT 22:15 → M MS5PR 22:55
PROVIDERS: ADMIT Internal Medicine; ATTEND Internal Medicine Nephrology
DX: G89.3 Neoplasm related pain (acute) (chronic) (principal); C78.6 Secondary malignant neoplasm of retroperitoneum and peritoneum; C56.9 Malignant neoplasm of unspecified ovary; Z51.5 Encounter for palliative care; G62.2 Polyneuropathy due to other toxic agents; E11.51 Type 2 diabetes mellitus with diabetic peripheral angiopathy without gangrene; E78.5 Hyperlipidemia, unspecified; J44.9 Chronic obstructive pulmonary disease, unspecified; F41.9 Anxiety disorder, unspecified; E55.9 Vitamin D deficiency, unspecified; E11.319 Type 2 diabetes mellitus with unspecified diabetic retinopathy without macular edema; I10 Essential (primary) hypertension; Z79.899 Other long term (current) drug therapy; Z91.040 Latex allergy status; Z88.2 Allergy status to sulfonamides; Z88.8 Allergy status to other drugs, medicaments and biological substances; F17.200 Nicotine dependence, unspecified, uncomplicated

== ENCOUNTER → 2020-02-03 | Outpatient (CLI) | payer MEDICARE ==
[~2020-02-03] MED LIST changes: +HYOS125TA PO; +LIDO1PAD TOP; +LORA0.5T5 PO; +MORP20SO3 PO; +NEUR300C PO; +PROC5TAB57 PO; +SCOP1PAT2 TOP; +SENN-23 PO
== END ==
LOC: M CARPUL 10:31
PROVIDERS: ATTEND Specialist
DX: C56.9 Malignant neoplasm of unspecified ovary (principal); Z79.899 Other long term (current) drug therapy

== ENCOUNTER → 2020-02-04 | Outpatient (REF) | payer MEDICARE ==
[2020-03-13 08:22] LABS: HEMOGLOBIN A1c 6.7 %
== END ==
LOC: M LAB REF 10:32
PROVIDERS: ATTEND Hospitalist
DX: E11.65 Type 2 diabetes mellitus with hyperglycemia (principal); E78.5 Hyperlipidemia, unspecified

== ENCOUNTER → 2020-05-11 | Outpatient (CLI) | payer MEDICARE ==
[~2020-05-11] MED LIST changes: +GASTROGRAFIN SOLUTION 30ML (Q9963) As Ordered ONE; +ISOVUE-370 76% 100ML VIAL As Ordered ONE
--- NOTE | 2020-05-11 15:26 | REP ---
INDICATION: PERITONEAL CA. COMPARISON: 09/22/2019 TECHNIQUE: Bolus of 100 mL Isovue 370 scanning through the chest with coronal and sagittal reconstructions. FINDINGS: CT chest: The lung vargas are well inflated. There is no pleural effusion, pleural thickening or calcified pleural plaque. Some curvilinear scarring in the inferior lingular segment left upper lobe at the anterior left lung base adjacent to the heart and chronic changes along the pleural surface of the medial segment of the right middle lobe abutting the right heart border. No nodule, mass or new parenchymal/pleural finding. Heart is not enlarged. There is no pericardial thickening or effusion. The aorta is without aneurysm or dissection. The central pulmonary arteries in the mediastinum and lobar arteries visible were unremarkable. No pathologic sized mediastinal, hilar, axillary or supraclavicular mass. Bone windows show minor degenerative changes with vacuum phenomena at multiple levels and other degenerative findings with spurring but no compression fracture or destructive lesion. There is a dorsal column stimulator evident with air leads extending up to the T7 level. This is unchanged. No destructive lesion or compression deformities with the sternum, manubrium, visible clavicles, scapulae, humeral heads and ribs were all grossly intact. Please see the CT abdomen report this date for discussion of the upper abdominal findings. IMPRESSION: 1. Stable CT without evidence of metastatic disease in the lungs or elsewhere in the chest. The mediastinum, maria teresa, axilla and supraclavicular regions without adenopathy. 2. Some degenerative changes in the spine but no bony metastatic lesions. Stable chest CT. <Electronically signed by Leeroy Medrano > 05/11/20 [id number]
--- NOTE | 2020-05-11 15:38 | REP ---
INDICATION: PERITONEAL CA. COMPARISON: 10/21/2019, 09/22/2019 TECHNIQUE: Oral Gastrografin per are bowel contrast protocol and bolus 100 mL Isovue 370 scanning through abdomen pelvis with coronal and sagittal reconstructions. FINDINGS: CT abdomen: Right lobe of the liver is enlarged showing dilatation in the vertical diameter up to 21 cm. No focal hepatic mass or biliary dilatation. The gallbladder without calcified stone. Pancreas shows no ductal dilatation, mass or calcification no adjacent inflammatory changes. No hiatal hernia and the stomach shows some retained contrast but no gross mass. Some calcified granulomas are seen in the spleen as before. Small bowel loops in the upper abdomen were unremarkable. Scattered areas of the gaseous distention of some loops of colon in the transverse segment and left-side but much less than on the previous study and consistent with chronic change. There is marked improvement in the peritoneal implants with small residual areas of the density and nodules along the anterolaterall left peritoneal cavity compared to the confluent bulky disease seen in the previous study. This is a dramatic improvement. Small bowel loops without dilatation or obstruction. No sign of colitis or diverticulitis. Kidneys are unchanged without acute finding extrarenal pelves are again seen. Atherosclerotic calcifications aorta without aneurysm no periaortic adenopathy. Do not see perforation or free air nor evidence of ascites in the abdomen proper. The bone windows show lumbar and lower thoracic spine with stable degenerative changes including the posterior elements at L4-5 and L5-S1 no destructive lesion or compression deformities. Visualized ribs intact. CT pelvis sacrum, iliac bones hips and pubic bones show no destructive lesion. Posteriorly behind the upper aspect of the iliac bone is the dorsal common stimulator battery unit with its leads extending to the spine. There is some wall thickening of the distal left colon and sigmoid as before uterus absent the vaginal cuff intact. No pelvic mass. Bladder shows no mass or wall thickening. No distal ureteral dilatation or stone. A few pelvic phleboliths are seen. Small bowel loops with contrast but no dilatation or obstruction. Cecum is unremarkable with no inflammatory changes adjacent. IMPRESSION: : 1. A dramatic improvement in the omental and peritoneal bulky metastatic carcinomatosis compared to the previous study. No ascites visible today 2. Stable appearance with some thickening of the descending sigmoid colon without adjacent inflammatory changes this may be some nonspecific colitis versus muscular hypertrophy no obstruction or mass. No diverticulitis. 3. Mild hepatomegaly without solid organ abnormality. <Electronically signed by Leeroy Medrano > 05/11/20 0953
== END ==
LOC: M RAD 11:41
PROVIDERS: ATTEND Specialist
DX: C48.2 Malignant neoplasm of peritoneum, unspecified (principal)
CPT/HCPCS: 71260; 74177; Q9963; Q9967

== ENCOUNTER → 2020-06-14 | Outpatient (REF) | payer MEDICARE ==
[~2020-06-14] MED LIST changes: -GASTROGRAFIN SOLUTION 30ML (Q9963) As Ordered ONE; -ISOVUE-370 76% 100ML VIAL As Ordered ONE
[2020-06-14 15:19] LABS: BLOOD UREA NITROGEN 12 MG/DL (7-18); CALCIUM LEVEL 9.5 MG/DL (8.5-10.1); CARBON DIOXIDE LEVEL 30 MEQ/L (21-32); CHLORIDE LEVEL 102 MEQ/L (98-107); CHOLESTEROL LEVEL 249 MG/DL (<200); CHOLESTEROL RISK RATIO 7.781 (<5); CREATININE FOR GFR 0.93 MG/DL (0.55-1.30); GLOMERULAR FILTRATION RATE > 60.0 (>51); GLUCOSE, FASTING 322 MG/DL (70-100); HDL CHOLESTEROL 32 MG/DL (>40); NON-HDL-C 217 MG/DL; POTASSIUM SERUM 3.9 MEQ/L (3.5-5.1); SODIUM LEVEL 136 MEQ/L (136-145); TRIGLYCERIDES LEVEL 607 MG/DL (<150)
[2020-06-14 15:27] LABS: CREATININE, URINE 15.8 MG/DL; MAU/CREAT RATIO 120.2 MCG/MG (0.0-30.0)
[2020-06-14 17:12] LABS: HEMOGLOBIN A1c 8.5 %
== END ==
LOC: M LAB REF 14:44
PROVIDERS: ATTEND Hospitalist
DX: E11.65 Type 2 diabetes mellitus with hyperglycemia (principal)

== ENCOUNTER → 2020-07-12 | Outpatient (CLI) | payer MEDICARE ==
--- NOTE | 2020-07-13 12:28 | ECHO ---
DATE OF PROCEDURE: 07/12/2020 Age: 55 Gender: Female Height: 165 cm Weight: 72 kg REFERRING PHYSICIAN: Stephane Curtis MD INDICATION: Chemotherapy drugs that may affect the heart. MEASUREMENTS: 2D Measurements: Intraventricular septum 0.83 cm Posterior wall 0.73 cm Left ventricle diastole 4.2 cm Aortic root 2.9 cm Left atrium 3.2 cm Left atrial volume index 13 cm Inferior vena cava 1.2 cm with normal respiratory variation Doppler Measurements: No aortic stenosis No aortic regurgitation Aortic valve velocity 129 cm/s LVOT velocity 78.3 cm/s No mitral regurgitation No mitral stenosis Mitral E velocity 47.6 cm/s Mitral A velocity 68.1 cm/s Mitral deceleration time 251 msec No tricuspid regurgitation Very mild pulmonic regurgitation MITRAL ANNULAR TISSUE DOPPLER E prime septal 6.9 cm/s, E prime lateral 8.9 cm/s DESCRIPTION: Rhythm was sinus. Image quality was adequate. This was a 2D, M- mode, color flow Doppler, and pulsed wave Doppler examination including mitral annular tissue Doppler. CONCLUSIONS: 1. Normal left ventricle internal dimensions and wall thickness. Normal regional LV wall motion and wall thickening. Normal LV systolic function. LVEF 60% - 65% by visual assessment. Grade 1 LV diastolic dysfunction (impaired relaxation filling pattern). 2. Very mild aortic valve sclerosis of a 3-cuspid aortic valve. No aortic regurgitation. 3. Very small pericardial effusion. No diastolic chamber collapse. 4. Otherwise normal appearing echocardiogram Doppler findings. MTDD
== END ==
LOC: M CARPUL 08:47
PROVIDERS: ATTEND Specialist
DX: C56.9 Malignant neoplasm of unspecified ovary (principal); C78.6 Secondary malignant neoplasm of retroperitoneum and peritoneum; Z92.21 Personal history of antineoplastic chemotherapy; Z79.899 Other long term (current) drug therapy

== ENCOUNTER → 2020-10-18 | Outpatient (CLI) | payer MEDICARE ==
[~2020-10-18] MED LIST changes: +AUGM500T34 PO; +GABA-282 PO; -GABA-843 PO; +LEVO500T3 PO; +LISI10TA22 PO; -LISI10TA4 PO
--- NOTE | 2020-10-18 15:17 | REP ---
INDICATION: PAIN IN RIGHT WRIST; PT NEEDS TO GO BACK TO [facility]. COMPARISON: None TECHNIQUE: AP and lateral views FINDINGS: Seen only on the lateral view there is evidence of a subtle triquetral fracture. Other fractures or potential fractures could be obscured since only 2 limited views were obtained. IMPRESSION: Suspect nondisplaced subtle triquetral fracture. <Electronically signed by Travon Muller > 10/18/20 [id number]
== END ==
LOC: M RAD 14:12
PROVIDERS: ATTEND Specialist
DX: M25.531 Pain in right wrist (principal)

== ENCOUNTER → 2020-12-15 | Outpatient (CLI) | payer MEDICARE ==
[~2020-12-15] MED LIST changes: +GASTROGRAFIN SOLUTION 30ML (Q9963) As Ordered ONE; +ISOVUE-370 76% 100ML VIAL As Ordered ONE
--- NOTE | 2020-12-15 18:09 | REP ---
INDICATION: PRIMARY PERITONEAL CANCER. COMPARISON: Multiple the latest 05/11/2020 TECHNIQUE: Standard helical technique after the intravenous administration of 100 cc Isovue 370 and oral bowel preparatory contrast administration. FINDINGS: Lung bases are stable. The liver, gallbladder, spleen, pancreas, kidneys, and adrenal glands are unchanged. Para-aortic adenopathy has developed since the last exam with the largest node measuring 1.6 cm. The abdominal aorta is unchanged. A moderate amount of ascites has developed since the last exam. Multifocal nodular soft tissue densities are seen at multiple sites along the peritoneum and within the omentum. Omental caking is developing in the left lower quadrant. There is no significant change in the appearance of the imaged osseous structures. IMPRESSION: 1. Ascites has developed since the last exam as described above. 2. Peritoneal and omental disease as described above. 3. Para-aortic adenopathy has developed since the last exam as described above. 4. Other findings as described above. <Electronically signed by Travon Muller > 12/15/20 [id number]
== END ==
LOC: M RAD 16:23
PROVIDERS: ATTEND Specialist
DX: C48.2 Malignant neoplasm of peritoneum, unspecified (principal); R18.8 Other ascites; R59.0 Localized enlarged lymph nodes
CPT/HCPCS: 74177; Q9963; Q9967

== ENCOUNTER 2020-12-27 17:01 | Emergency (ER) | payer MEDICARE ==
[~2020-12-27] VITALS: Ht 165.1 cm; Wt 76.6 kg
[~2020-12-27 17:01] MED LIST changes: -GASTROGRAFIN SOLUTION 30ML (Q9963) As Ordered ONE; -ISOVUE-370 76% 100ML VIAL As Ordered ONE
--- NOTE | 2020-12-27 17:27 | REP ---
INDICATION: CONSTIPATION. COMPARISON: 10/21/2019. TECHNIQUE: Single view abdomen and pelvis. FINDINGS: Moderate fecal material is scattered throughout the colon. There is no evidence of small bowel obstruction. Stimulator device is noted, as seen on prior study. There are phleboliths in the inferior pelvis. IMPRESSION: Moderate fecal retention without evidence of small bowel obstruction. <Electronically signed by Joe Dominguez > 12/27/20 [id number]
[2020-12-27] MEDS ORDERED: METOCLOPRAMIDE 10 MG TAB PO ONE (22:25)
[2020-12-27] MEDS ORDERED: LACTULOSE 20 GM/30 ML SYRUP UD PO ONE (22:25)
[2020-12-27] MEDS ORDERED: LACT20EL PO (22:26)
[2020-12-27] MEDS ORDERED: REGL10TA6 PO (22:29)
[2020-12-27 22:36] VITALS: BP 112/77
--- NOTE | 2020-12-29 05:59 | ECGEPIP ---
[facility] - ED Test Date: 2020-12-27 Pat Name: VISHAL PAZ Department: Room: - Gender: Female [employer] Analyst: ANA : 1965 Requested By: MALENA Wei Order Number: [id number] Reading MD: Chi Hood Measurements Intervals [place] Rate: 93 P: 62 [place]: 146 QRS: 47 QRSD: 80 T: 66 QT: 338 QTc: 420 Interpretive Statements Normal sinus rhythm SIMILAR TO 10/21/19 Electronically Signed on 12-29-2020 5:58:56 EDT by Chi Hood
== END 2020-12-27 22:37 | disposition home or self-care (01) ==
LOC: M ED 17:01
DX: K59.00 Constipation, unspecified (principal); C56.9 Malignant neoplasm of unspecified ovary; C78.6 Secondary malignant neoplasm of retroperitoneum and peritoneum; C79.89 Secondary malignant neoplasm of other specified sites; E11.40 Type 2 diabetes mellitus with diabetic neuropathy, unspecified; I10 Essential (primary) hypertension; E78.5 Hyperlipidemia, unspecified; J44.9 Chronic obstructive pulmonary disease, unspecified; Z88.2 Allergy status to sulfonamides; Z88.5 Allergy status to narcotic agent; Z79.899 Other long term (current) drug therapy; F17.200 Nicotine dependence, unspecified, uncomplicated

== ENCOUNTER 2021-01-06 14:11 | Emergency (ER) | payer MEDICARE ==
[~2021-01-06] VITALS: Ht 165.1 cm; Wt 79.8 kg
[~2021-01-06 14:11] MED LIST changes: +LACT20EL PO; +REGL10TA6 PO
[2021-01-06] MEDS ORDERED: METF10004 (14:26)
[2021-01-06 15:25] LABS: BASO % 0.3 % (0.0-1.0); EOS # 0.1 10^3/uL (0.0-0.5); EOS % 1.9 % (0.0-3.0); HEMOGLOBIN 11.2 g/dl (12.0-15.5); LYMPH % 15.5 % (24.0-44.0); MEAN CORPUSCULAR HEMOGLOBIN 28.7 pg (27.0-33.0); MEAN CORPUSCULAR VOLUME 89.7 fl (80.0-96.0); MONO # 0.5 10^3/uL (0.0-0.8); MONO % 8.4 % (2.0-8.0); NEUTROPHILS # 4.6 10^3/uL (1.5-8.5); NEUTROPHILS % 73.6 % (36.0-66.0); PLATELET COUNT, AUTOMATED 257 10^3/uL (150-450); WHITE BLOOD COUNT 6.2 10^3/uL (4.0-10.0)
[2021-01-06] MEDS ORDERED: ISOVUE-370 76% 100ML VIAL As Ordered ONE (15:44)
[2021-01-06 15:51] LABS: ALBUMIN 2.8 GM/DL (3.2-5.2); BILIRUBIN,DIRECT 0.1 MG/DL (0.0-0.2); BILIRUBIN,TOTAL 0.4 MG/DL (0.2-1.0); TOTAL PROTEIN 6.4 GM/DL (6.4-8.2)
[2021-01-06] MEDS ORDERED: MORPHINE 4 MG/ML 1ML VIAL/SYRINGE (J2270) IV ONE (16:15)
--- NOTE | 2021-01-06 16:25 | REP ---
INDICATION: abdominal pain. COMPARISON: 12/15/2020 TECHNIQUE: Axial contrast-enhanced images from the lung bases to the pubic symphysis using 100 cc Isovue 370 intravenous contrast material. . This CT examination was performed using the following dose reduction techniques: Automated exposure control, adjustment of mA and/or kv according to the patient's size, and the use of iterative reconstruction technique. FINDINGS: Severe ascites noted throughout the abdomen and pelvis which appears to be increased from prior examination. Metastatic/neoplastic peritoneal deposits are again identified and similar to prior examination along with few prominent para-aortic retroperitoneal lymph nodes measuring up to roughly 17 mm. Findings are again consistent with malignancy despite no such given history. Liver, spleen, pancreas, gallbladder, bilateral adrenal glands and kidneys are relatively normal/stable. The kidneys demonstrate mild hydronephrosis without obvious hydroureter. Moderate fecal stasis noted throughout the colon without evidence for bowel obstruction or definite inflammatory enteric process. There is no evidence for free air to suggest perforation. Pelvis demonstrates normal bladder and prior hysterectomy. Atherosclerotic changes to the aorta and vasculature noted without aneurysm or dissection. Skeletal structures demonstrate osteopenia, degenerative changes, and evidence for lumbar laminectomy as well as epidural stimulator at the thoracic level. Lung bases demonstrate small pleural effusions. IMPRESSION: 1. Severe ascites increased from prior examination. 2. Peritoneal mass lesions/implants and few retroperitoneal lymph nodes essentially unchanged from prior examination consistent with underlying malignancy. 3. Otherwise chronic changes without new acute process appreciated. 4. Small pleural effusions without significant atelectasis. <Electronically signed by Darci Solis > 01/06/21 [id number]
[2021-01-06] MEDS ORDERED: MORPHINE 2 MG/ML 1ML VIAL (J2270) IV ONE (18:25)
[2021-01-06 18:41] VITALS: BP 125/72
[2021-01-10] MEDS ORDERED: OMEP-218 PO (15:17)
[2021-01-10] MEDS ORDERED: ECOT81TA5 PO (15:17)
[2021-01-10] MEDS ORDERED: PROAAER10 INH (15:17)
[2021-01-10] MEDS ORDERED: ZOFR4TAB16 PO (15:17)
[2021-01-10] MEDS ORDERED: GABA-282 PO (15:17)
[2021-01-10] MEDS ORDERED: ALBU83IN NEB (15:17)
[2021-01-10] MEDS ORDERED: BREO1INH3 PO (15:17)
[2021-01-10] MEDS ORDERED: ATOR40TA75 PO (15:17)
[2021-01-10] MEDS ORDERED: HYDR-3713 (15:17)
[2021-01-10] MEDS ORDERED: SENN-80 PO (15:17)
[2021-01-10] MEDS ORDERED: METH4TAB8 PO (15:17)
== END 2021-01-06 18:41 | disposition short-term general hospital (02) ==
LOC: M ED 14:11
DX: R18.8 Other ascites (principal); R94.5 Abnormal results of liver function studies; R19.00 Intra-abdominal and pelvic swelling, mass and lump, unspecified site; Z85.43 Personal history of malignant neoplasm of ovary; Z92.21 Personal history of antineoplastic chemotherapy; E11.9 Type 2 diabetes mellitus without complications; I10 Essential (primary) hypertension; J44.9 Chronic obstructive pulmonary disease, unspecified; M19.90 Unspecified osteoarthritis, unspecified site; E78.5 Hyperlipidemia, unspecified; G62.9 Polyneuropathy, unspecified; C48.2 Malignant neoplasm of peritoneum, unspecified; Z80.0 Family history of malignant neoplasm of digestive organs; Z80.1 Family history of malignant neoplasm of trachea, bronchus and lung; Z79.899 Other long term (current) drug therapy; Z88.2 Allergy status to sulfonamides; Z91.040 Latex allergy status; Z88.8 Allergy status to other drugs, medicaments and biological substances
CPT/HCPCS: 74177; 80047; 80076; 83605; 83690; 85025; 96374; 96376; 99284; J2270; Q9967; U0002

== ENCOUNTER → 2021-01-17 | Outpatient (CLI) | payer MEDICARE ==
[~2021-01-17] MED LIST changes: +ALBU83IN NEB; +BREO1INH3 PO; +ECOT81TA5 PO; +HYDR-3713; +METF10004; +METH4TAB8 PO; +OMEP-218 PO; +ONDA8TAB10 PO; +PROAAER10 INH; +PROC10TA4 PO; +SENN-80 PO
[2021-01-17 15:09] LABS: INR 0.99; PROTHROMBIN TIME 13.3 SECONDS (12.5-14.3)
[2021-01-17 15:10] LABS: PARTIAL THROMBOPLASTIN TIME 30.4 SECONDS (24.2-38.5)
[2021-01-17 15:55] VITALS: BP 104/58
--- NOTE | 2021-01-17 17:16 | REP ---
INDICATION: ASCITES PERITONEAL CA. COMPARISON: None. TECHNIQUE: The procedure was performed under the direct supervision of Dr. Wilson. The risks and benefits of the procedure were explained to the patient and informed consent was obtained. The largest pocket of fluid was localized in the right flank using ultrasound guidance. The skin was prepped and draped in a sterile fashion. 6 mL of 1% lidocaine was used as a local anesthetic. An 8-Finnish multi side-hole catheter was inserted using trocar technique.4500 mL of yellow fluid was withdrawn with a sample sent to the lab for analysis. Estimated blood loss: Less than 1 cc The patient tolerated the procedure well and there were no immediate complications. After the appropriate amount of monitored convalescence, the patient was discharged from the department. FINDINGS: None IMPRESSION: Ultrasound-guided paracentesis [id number] mL of yellow fluid. <Electronically signed by Claudio Ruelas > 01/17/21 1700 <Electronically signed by Carson Wilson > 01/17/21 [id number]
== END ==
LOC: M IRPRO 13:42
PROVIDERS: ATTEND Specialist
DX: R18.8 Other ascites (principal); C48.2 Malignant neoplasm of peritoneum, unspecified

== ENCOUNTER 2021-01-22 02:18 | Emergency (ER) | payer MEDICARE ==
[~2021-01-22] VITALS: Ht 165.1 cm; Wt 74.3 kg
[2021-01-22 02:56] LABS: BASO % 0.4 % (0.0-1.0); EOS # 0.1 10^3/uL (0.0-0.5); EOS % 1.5 % (0.0-3.0); HEMATOCRIT 35.2 % (36.0-47.0); HEMOGLOBIN 11.3 g/dl (12.0-15.5); LYMPH # 1.2 10^3/uL (1.5-5.0); LYMPH % 15.4 % (24.0-44.0); MEAN CORPUSCULAR HEMOGLOBIN 27.9 pg (27.0-33.0); MEAN CORPUSCULAR HGB CONC 32.1 g/dl (32.0-36.5); MEAN CORPUSCULAR VOLUME 86.9 fl (80.0-96.0); MONO # 0.6 10^3/uL (0.0-0.8); NEUTROPHILS % 75.3 % (36.0-66.0); PLATELET COUNT, AUTOMATED 345 10^3/uL (150-450); RED BLOOD COUNT 4.05 10^6/uL (4.00-5.40)
[2021-01-22 03:09] LABS: BLOOD UREA NITROGEN 8 MG/DL (7-18); CALCIUM LEVEL 8.9 MG/DL (8.5-10.1); CARBON DIOXIDE LEVEL 28 MEQ/L (21-32); CHLORIDE LEVEL 105 MEQ/L (98-107); CREATININE FOR GFR 0.64 MG/DL (0.55-1.30); GLOMERULAR FILTRATION RATE > 60.0 (>51); GLUCOSE, FASTING 180 MG/DL (70-100); POTASSIUM SERUM 4.3 MEQ/L (3.5-5.1); SODIUM LEVEL 140 MEQ/L (136-145)
[2021-01-22] MEDS ORDERED: KETOROLAC 30 MG/ML 1ML VIAL IV ONE (03:50)
[2021-01-22] MEDS ORDERED: ISOVUE-370 76% 100ML VIAL As Ordered ONE (03:55)
[2021-01-22 05:15] VITALS: BP 111/65
--- NOTE | 2021-01-22 05:35 | REPVR ---
PROCEDURE INFORMATION: Exam: XR Chest Exam date and time: 01/22/2021 2:44 AM Age: 55 years old Clinical indication: Other: Chest pain TECHNIQUE: Imaging protocol: XR of the chest. Views: 1 view. COMPARISON: CT Chest with contrast 05/11/2020 1:48 PM FINDINGS: Tubes, catheters and devices: There is a right sided [id number]. TENS leads are again noted extending to the midthoracic region. Lungs: The lungs are clear. Pleural spaces: No pleural effusions or pneumothorax identified. Heart/Mediastinum: The heart is normal in size. Bones/joints: No suspicious osseous lesions. No acute fractures. IMPRESSION: No evidence of acute pleural or parenchymal disease. Electronically signed by: Nori Cifuentes On 01/22/2021 05:35:19 AM
--- NOTE | 2021-01-22 05:49 | REPVR ---
PROCEDURE INFORMATION: Exam: CTA Chest With Contrast Exam date and time: 01/22/2021 4:05 AM Age: 55 years old Clinical indication: Chest wall pain; Additional info: Chest pain, tachycardia, HX of met CA TECHNIQUE: Imaging protocol: Computed tomographic angiography of the chest with contrast. 3D rendering (Not supervised by radiologist): MIP and/or 3D reconstructed images were created by the technologist. Radiation optimization: All CT scans at this facility use at least one of these dose optimization techniques: automated exposure control; mA and/or kV adjustment per patient size (includes targeted exams where dose is matched to clinical indication); or iterative reconstruction. Contrast material: ISOVUE 370; Contrast volume: 100 ml; Contrast route: INTRAVENOUS (IV); COMPARISON: 1. CT Chest with contrast 05/11/2020 1:48:[address] ANGIO CHEST 02/17/2017 8:[address] ABD/PEL W/IV CONTRAST ONLY 01/06/2021 4:01:34 PM FINDINGS: Tubes, catheters and devices: Leads from a TENS device are seen within thoracic spinal canal. Pulmonary arteries: The pulmonary arteries are not enlarged. No filling defects are seen to indicate an acute pulmonary embolism. Aorta: The aorta demonstrates mild atherosclerotic calcification. There is no thoracic aortic aneurysm or evidence of dissection. Lungs: Minimal peripheral consolidation is seen in both lungs, similar to the recent prior CT scan and likely subsegmental atelectasis Pleural spaces: There is a small right pleural effusion, not present on the prior CT scan of the chest but similar in size to the CT scan of the abdomen and pelvis from January 06, 2021. There is currently no significant left pleural fluid. Heart: The heart is normal in size. Lymph nodes: There are enlarged right pericardial lymph nodes also noted on the recent prior CT scan of the abdomen and pelvis. The largest node measure 2.2 x 1.0 cm. Spleen: A calcified granuloma is again seen in the spleen. Intraperitoneal space: There is moderate ascites in the visualized upper abdomen, similar to the recent prior CT scan of the abdomen and pelvis. Bones/joints: No suspicious osseous lesions. No acute fractures. Mild degenerative endplate changes are noted in the visualized spine. Soft tissues: Unremarkable. IMPRESSION: 1. No evidence of acute pulmonary embolism. 2. Small right pleural effusion, without significant change compared to the recent prior CT scan of the abdomen and pelvis. 3. Pericardial lymphadenopathy and ascites again noted. Electronically signed by: Nori Cifuentes On 01/22/2021 05:49:19 AM
--- NOTE | 2021-01-22 06:04 | REPVR ---
PROCEDURE INFORMATION: Exam: CT Abdomen And Pelvis With Contrast Exam date and time: 01/22/2021 4:05 AM Age: 55 years old Clinical indication: Abdominal pain; Prior surgery; Additional info: Chest pain, tachycardia, HX of met CA TECHNIQUE: Imaging protocol: Computed tomography of the abdomen and pelvis with contrast. Radiation optimization: All CT scans at this facility use at least one of these dose optimization techniques: automated exposure control; mA and/or kV adjustment per patient size (includes targeted exams where dose is matched to clinical indication); or iterative reconstruction. Contrast material: ISOVUE 370; Contrast volume: 100 ml; Contrast route: INTRAVENOUS (IV); COMPARISON: CT ABD/PEL W/IV CONTRAST ONLY 01/06/2021 4:01 PM FINDINGS: Tubes, catheters and devices: A battery pack is again noted in the left flank with TENS leads passing to the thoracic spinal canal. Liver: There are no focal liver lesions present. Gallbladder and bile ducts: The gallbladder is normal with no stones or biliary ductal dilation. Pancreas: There is mild diffuse atrophy of the pancreatic parenchyma. No pancreatic ductal dilation. Spleen: There is a calcified granuloma in the spleen. There is very heterogeneous attenuation of the spleen, probably related to the early contrast phase. There is no splenomegaly. Adrenal glands: The adrenal glands are normal. Kidneys and ureters: There are again a lobular contour and a mildly irregular shape of the right kidney, which may be congenital or due to chronic parenchymal scar. There are no ureteral stones or hydronephrosis. Stomach and bowel: There is poorly defined, enhancing soft tissue associated with the distal left colon and sigmoid colon which is difficult to measure but appears larger than on the prior exam. There is no dilation or gross thickening of the small bowel. There is no significant dilation of the colon. Appendix: The appendix is not specifically identified. Intraperitoneal space: There is again a moderate amount of free intraperitoneal fluid present. There is irregular, nodular thickening of the peritoneum and the omentum, grossly similar to the prior exam and consistent with carcinomatosis. There is no free intraperitoneal air. Vasculature: The aorta demonstrates moderate atherosclerotic calcification. No aortic aneurysm. Atherosclerotic changes are seen in the bilateral iliac arteries. Lymph nodes: Enlarged pericardial and diaphragmatic lymph nodes are again noted. There is further enlargement of a left para-aortic lymph node to 2.1 cm in diameter compared to 1.9 cm previously. Urinary bladder: The bladder is unremarkable. No stones identified. Reproductive: The uterus is absent. Bones/joints: There is evidence of prior posterior decompression surgery in the lower lumbar spine. Degenerative endplate changes are seen at multiple levels in the visualized spine. No suspicious osseous lesions. No acute fractures. Soft tissues: There is focal infiltration of the subcutaneous tissues in the left lower anterior abdominal wall, possibly related to a subcutaneous tissue injection. IMPRESSION: 1. Moderate ascites and peritoneal and omental implants, grossly similar to the prior exam and consistent with carcinomatosis. 2. Poorly defined, enhancing, nodular tissue associated with the distal left colon and the sigmoid colon, which appears larger than on the prior exam. This may represent the primary neoplasm or may be related to metastatic peritoneal implants. No evidence of bowel obstruction. 3. Small increase in para-aortic lymphadenopathy. Electronically signed by: Nori Cifuentes On 01/22/2021 06:03:42 AM
[2021-01-22] MEDS ORDERED: KETO10TAB PO (06:42)
--- NOTE | 2021-01-22 22:07 | ECGEPIP ---
[facility] - ED Test Date: 2021-01-22 Pat Name: VISHAL PAZ Department: Room: - Gender: Female [employer]: ALYSA RN : 1965 Requested By: MIRIAM Talbert Order Number: [id number] Reading MD: Rosamaria Hull Measurements Intervals [place] Rate: 106 P: 64 [place]: 134 QRS: 51 QRSD: 80 T: 72 QT: 336 QTc: 446 Interpretive Statements Sinus tachycardia increased rate 12/27/20 Electronically Signed on 01-22-2021 22:07:20 EDT by Rosamaria Hlul
--- NOTE | 2021-01-23 13:51 | ED PDOC ---
Post-Departure Follow-Up cta chest and ct abd/p reports faxed to [facility] for fu Shashank Johnson MD Jan 23, 2021 13:51
[2021-01-26] MEDS ORDERED: LACT20EL PO (09:30)
[2021-01-26] MEDS ORDERED: OMEP1CAP73 PO (09:30)
[2021-01-26] MEDS ORDERED: METF10004 PO (09:30)
[2021-01-26] MEDS ORDERED: ZOFR4TAB16 PO (09:30)
[2021-01-26] MEDS ORDERED: ATOR40TA75 PO (09:30)
== END 2021-01-22 07:08 | disposition home or self-care (01) ==
LOC: M ED 02:18
DX: R07.89 Other chest pain (principal); R00.0 Tachycardia, unspecified; R18.8 Other ascites; R59.9 Enlarged lymph nodes, unspecified; J90 Pleural effusion, not elsewhere classified; E11.9 Type 2 diabetes mellitus without complications; E78.5 Hyperlipidemia, unspecified; J44.9 Chronic obstructive pulmonary disease, unspecified; C56.9 Malignant neoplasm of unspecified ovary; C78.6 Secondary malignant neoplasm of retroperitoneum and peritoneum; C79.89 Secondary malignant neoplasm of other specified sites; Z88.2 Allergy status to sulfonamides; Z88.8 Allergy status to other drugs, medicaments and biological substances; Z91.040 Latex allergy status; Z79.899 Other long term (current) drug therapy; Z87.891 Personal history of nicotine dependence
CPT/HCPCS: 71045; 71275; 74177; 80048; 84484; 85025; 93005; 93041; 94760; 96374; 99285; J1885; Q9967

== ENCOUNTER → 2021-01-26 | Outpatient (CLI) | payer MEDICARE ==
[~2021-01-26] MED LIST changes: +KETO10TAB PO; +OMEP1CAP73 PO
[2021-01-26 10:00] VITALS: BP 131/72
--- NOTE | 2021-01-26 16:52 | REP ---
INDICATION: ASCITES PERITONEAL CA. COMPARISON: None. TECHNIQUE: The procedure was performed under the direct supervision of Dr. Dominguez. The risks and benefits of the procedure were explained to the patient and informed consent was obtained. The largest pocket of fluid was localized in the right flank using ultrasound guidance. The skin was prepped and draped in a sterile fashion. 6 mL of 1% lidocaine was used as a local anesthetic. An 8-Eritrean multi side-hole catheter was inserted using trocar technique.4200 mL of yellow fluid was withdrawn and discarded. Estimated blood loss: Less than 1 mL The patient tolerated the procedure well and there were no immediate complications. After the appropriate amount of monitored convalescence, the patient was discharged from the department. FINDINGS: None IMPRESSION: Ultrasound-guided paracentesis [id number] mL of yellow fluid. <Electronically signed by Claudio Ruelas > 01/26/21 1502 <Electronically signed by Joe Dominguez > 01/26/21 [id number]
== END ==
LOC: M IRPRO 08:50
PROVIDERS: ATTEND Specialist
DX: R18.8 Other ascites (principal); C48.2 Malignant neoplasm of peritoneum, unspecified

== ENCOUNTER → 2021-02-17 | Outpatient (REF) | payer MEDICARE ==
[~2021-02-17] MED LIST changes: -DOXY100C PO; +DOXY100C3 PO; +MORP1SOL5 PO; -MORP20SO3 PO
== END ==
LOC: M SFHCPLAZ 10:30
PROVIDERS: ATTEND Family Medicine
DX: E11.65 Type 2 diabetes mellitus with hyperglycemia (principal); E78.5 Hyperlipidemia, unspecified

== ENCOUNTER → 2021-03-01 | Outpatient (REF) | payer MEDICARE ==
[2021-03-01 08:53] LABS: CHOLESTEROL RISK RATIO 8.407 (<5)
[2021-03-01 11:50] LABS: HEMOGLOBIN A1c 9.1 %
== END ==
LOC: M LAB REF 08:03
PROVIDERS: ATTEND Student in an Organized Health Care Education/Training Program
DX: E11.65 Type 2 diabetes mellitus with hyperglycemia (principal); E78.5 Hyperlipidemia, unspecified

== ENCOUNTER → 2021-03-07 | Outpatient (CLI) | payer MEDICARE ==
[2021-03-07 14:10] VITALS: BP 134/63
--- NOTE | 2021-03-07 14:47 | REP ---
INDICATION: ASCITES PERITONEAL CA. COMPARISON: CT 01/22/2021. TECHNIQUE: Real-time sonographic evaluation of abdomen and pelvis performed to evaluate for ascites. FINDINGS: No significant ascites fluid is visualized in the abdomen or pelvis. IMPRESSION: No significant ascites visualized in the abdomen or pelvis. Paracentesis not performed. <Electronically signed by Joe Dominguez > 03/07/21 [id number]
== END ==
LOC: M IRPRO 14:05
PROVIDERS: ATTEND Specialist
DX: R18.8 Other ascites (principal); C48.2 Malignant neoplasm of peritoneum, unspecified; Z53.8 Procedure and treatment not carried out for other reasons

== ENCOUNTER → 2021-06-16 | Outpatient (CLI) | payer MEDICARE ==
[~2021-06-16] MED LIST changes: +ACET-683 PO; +ACET-897 PO; +DEXA4TA PO; +FLUC100T3 PO; +LEVO250T3 PO; -LEVO500T3 PO; +LEVO500T4 PO; +MAGICMW SSP; +Magic Mouthwash; +NAPR-837 PO; +NAPR500T6 PO; +NYST1POW9 TOP; +OMEP-173 PO; -OMEP-218 PO; +OMEP10CASR PO; +OMEP40CA4 PO; +ONDA-84 PO; +ONDA4TAB6 PO; -ONDA8TAB10 PO; -PROC10TA4 PO; +PROC10TA5 PO; -SCOP1PAT2 TOP; +TRAN1DIS4 TOP
== END ==
LOC: M RAD 12:10
PROVIDERS: ATTEND Specialist
DX: M50.30 Other cervical disc degeneration, unspecified cervical region (principal)

== ENCOUNTER → 2021-06-22 | Outpatient (CLI) | payer MEDICARE ==
[~2021-06-22] MED LIST changes: -ACET-683 PO; -ACET-897 PO; -DEXA4TA PO; +FLUC100T PO; -FLUC100T3 PO; -LEVO250T3 PO; +LEVO500T3 PO; -LEVO500T4 PO; -Magic Mouthwash; -NAPR-837 PO; -NAPR500T6 PO; -NYST1POW9 TOP; -OMEP-173 PO; +OMEP-218 PO; -OMEP10CASR PO; -OMEP40CA4 PO; -ONDA-84 PO; -ONDA4TAB6 PO; +ONDA8TAB10 PO; +PROC10TA4 PO; -PROC10TA5 PO
== END ==
LOC: M PAIN 09:00
PROVIDERS: ATTEND Anesthesiology
DX: M54.50 Low back pain, unspecified (principal); M53.3 Sacrococcygeal disorders, not elsewhere classified; E11.9 Type 2 diabetes mellitus without complications; L05.91 Pilonidal cyst without abscess; E78.5 Hyperlipidemia, unspecified; J44.9 Chronic obstructive pulmonary disease, unspecified; E55.9 Vitamin D deficiency, unspecified; F41.9 Anxiety disorder, unspecified; C78.6 Secondary malignant neoplasm of retroperitoneum and peritoneum; F17.210 Nicotine dependence, cigarettes, uncomplicated; Z79.84 Long term (current) use of oral hypoglycemic drugs; Z79.82 Long term (current) use of aspirin; Z88.2 Allergy status to sulfonamides; Z88.8 Allergy status to other drugs, medicaments and biological substances; Z91.040 Latex allergy status

== ENCOUNTER 2021-07-29 21:22 | Emergency (ER) | payer MEDICARE ==
[~2021-07-29] VITALS: Ht 165.1 cm; Wt 72.9 kg
[~2021-07-29 21:22] MED LIST changes: +DEXA4TA PO; +LEVO250T3 PO; -LEVO500T3 PO; +LEVO500T4 PO; +Magic Mouthwash; +OMEP-173 PO; -OMEP-218 PO; +ONDA-84 PO; -ONDA8TAB10 PO; -PROC10TA4 PO; +PROC10TA5 PO
[2021-07-29] MEDS ORDERED: ONDANSETRON 4MG/2ML VIAL IV ONE (22:35)
[2021-07-29] MEDS ORDERED: NS 500 ML IV ONE (22:35)
[2021-07-29 23:13] LABS: MEAN CORPUSCULAR HEMOGLOBIN 29.5 pg (27.0-33.0); MEAN CORPUSCULAR HGB CONC 32.4 g/dl (32.0-36.5); MEAN CORPUSCULAR VOLUME 90.9 fl (80.0-96.0); PLATELET COUNT, AUTOMATED 252 10^3/uL (150-450); RED BLOOD COUNT 4.07 10^6/uL (4.00-5.40); WHITE BLOOD COUNT 25.2 10^3/uL (4.0-10.0)
[2021-07-29 23:45] LABS: BLOOD UREA NITROGEN 23 MG/DL (7-18); CALCIUM LEVEL 8.6 MG/DL (8.5-10.1); CARBON DIOXIDE LEVEL 28 MEQ/L (21-32); CHLORIDE LEVEL 105 MEQ/L (98-107); CREATININE FOR GFR 0.85 MG/DL (0.55-1.30); GLOMERULAR FILTRATION RATE > 60.0 (>51); GLUCOSE, FASTING 265 MG/DL (70-100); POTASSIUM SERUM 4.1 MEQ/L (3.5-5.1); SODIUM LEVEL 139 MEQ/L (136-145)
[2021-07-29 23:46] LABS: ALBUMIN 3.2 GM/DL (3.2-5.2); ALT/SGPT 19 U/L (12-78); BILIRUBIN,DIRECT < 0.1 MG/DL (0.0-0.2); BILIRUBIN,TOTAL 0.2 MG/DL (0.2-1.0); TOTAL PROTEIN 6.7 GM/DL (6.4-8.2)
[2021-07-29] MEDS ORDERED: ONDA4TAB6 PO (23:57)
[2021-07-30] MEDS ORDERED: NS 500 ML IV ONE
[2021-07-30] MEDS ORDERED: ONDANSETRON 4 MG ORAL DISINTEGRATING TAB PO ONE (00:05)
[2021-07-30 00:06] LABS: LYMPHOCYTES 3 % (16-44); NEUTROPHILS 86 % (28-66)
[2021-07-30 00:07] LABS: PLATELET ESTIMATE NORMAL (NORMAL)
[2021-07-30 00:15] VITALS: BP 135/68
[2021-07-30] MEDS ORDERED: SODIUM CHLORIDE 0.9% INJ 10 ML SYR IV PRN (01:15)
== END 2021-07-30 01:46 | disposition home or self-care (01) ==
LOC: M ED 21:22
DX: R11.2 Nausea with vomiting, unspecified (principal); Z92.21 Personal history of antineoplastic chemotherapy; D56.9 Thalassemia, unspecified; E11.9 Type 2 diabetes mellitus without complications; I10 Essential (primary) hypertension; E78.5 Hyperlipidemia, unspecified; J44.9 Chronic obstructive pulmonary disease, unspecified; M19.90 Unspecified osteoarthritis, unspecified site; F17.200 Nicotine dependence, unspecified, uncomplicated; Z79.84 Long term (current) use of oral hypoglycemic drugs; Z79.899 Other long term (current) drug therapy; Z88.2 Allergy status to sulfonamides; Z91.040 Latex allergy status; Z88.1 Allergy status to other antibiotic agents; Z88.8 Allergy status to other drugs, medicaments and biological substances
CPT/HCPCS: 80048; 80076; 83605; 85025; 87040; 93041; 99284; J1642; J2405; Q0162

== ENCOUNTER 2021-08-01 21:39 | Emergency (ER) | payer MEDICARE ==
[~2021-08-01] VITALS: Ht 165.1 cm; Wt 73.2 kg
[~2021-08-01 21:39] MED LIST changes: -NAPR-837 PO
[2021-08-01 22:14] LABS: HEMATOCRIT 30.7 % (36.0-47.0); HEMOGLOBIN 10.1 g/dl (12.0-15.5); MEAN CORPUSCULAR HEMOGLOBIN 29.5 pg (27.0-33.0); MEAN CORPUSCULAR HGB CONC 32.9 g/dl (32.0-36.5); MEAN CORPUSCULAR VOLUME 89.8 fl (80.0-96.0); PLATELET COUNT, AUTOMATED 196 10^3/uL (150-450); RED BLOOD COUNT 3.42 10^6/uL (4.00-5.40); WHITE BLOOD COUNT 3.3 10^3/uL (4.0-10.0)
[2021-08-01] MEDS ORDERED: MORPHINE 4 MG/ML 1ML VIAL/SYRINGE (J2270) IV PRN (22:35)
[2021-08-01] MEDS ORDERED: ONDANSETRON 4MG/2ML VIAL IV ONE (22:35)
[2021-08-01 22:37] LABS: ATYPICAL LYMPH 1 % (0-5); LYMPHOCYTES 32 % (16-44); METAMYELOCYTES 2 % (0-0); MONOCYTES 7 % (0-5); MYELOCYTES 1 % (0-0); NEUTROPHILS 50 % (28-66)
[2021-08-01 22:39] LABS: PLATELET ESTIMATE NORMAL (NORMAL); TOXIC VACUOLATION 1+
[2021-08-01 22:44] LABS: CK-MB VALUE MASS < 1.0 NG/ML (<3.6); CPK CREATINE PHOSPHOKINASE 52 U/L (26-192); MB/CK RELATIVE INDEX 1.92 (< OR =4)
[2021-08-01 22:45] LABS: BLOOD UREA NITROGEN 16 MG/DL (7-18); CALCIUM LEVEL 8.5 MG/DL (8.5-10.1); CARBON DIOXIDE LEVEL 26 MEQ/L (21-32); CHLORIDE LEVEL 105 MEQ/L (98-107); CREATININE FOR GFR 0.98 MG/DL (0.55-1.30); GLOMERULAR FILTRATION RATE > 60.0 (>51); GLUCOSE, FASTING 254 MG/DL (70-100); NT-PRO BNP 228 PG/ML (<125); POTASSIUM SERUM 4.1 MEQ/L (3.5-5.1); SODIUM LEVEL 138 MEQ/L (136-145)
[2021-08-01] MEDS ORDERED: ISOVUE-370 76% 100ML VIAL As Ordered ONE (23:37)
[2021-08-01 23:49] LABS: CK-MB VALUE MASS < 1.0 NG/ML (<3.6); CPK CREATINE PHOSPHOKINASE 46 U/L (26-192); MB/CK RELATIVE INDEX 2.17 (< OR =4)
[2021-08-02 02:00] VITALS: BP 120/60
[2021-08-02] MEDS ORDERED: OXYCODONE/APAP 5MG/325MG(BULK FOR ED) 1 TABLET PO ONE (02:00)
[2021-08-02] MEDS ORDERED: KETOROLAC 30 MG/ML 1ML VIAL IV ONE (02:00)
[2021-08-02] MEDS ORDERED: NAPR-837 PO (02:01)
== END 2021-08-02 02:36 | disposition home or self-care (01) ==
LOC: M ED 21:39 → EDBD 21:39 → M ED 08-02 02:36
DX: R07.9 Chest pain, unspecified (principal); Z51.5 Encounter for palliative care; E11.9 Type 2 diabetes mellitus without complications; E78.5 Hyperlipidemia, unspecified; I10 Essential (primary) hypertension; C56.9 Malignant neoplasm of unspecified ovary; F17.200 Nicotine dependence, unspecified, uncomplicated; R18.8 Other ascites; Z95.828 Presence of other vascular implants and grafts

== ENCOUNTER → 2021-08-01 | Outpatient (CLI) | payer MEDICARE ==
[~2021-08-01] MED LIST changes: +NAPR-837 PO; +ONDA4TAB6 PO
[2021-08-01 12:46] VITALS: BP 112/69
[2021-08-01 13:16] LABS: INR 1.06; PROTHROMBIN TIME 14.2 SECONDS (12.7-14.5)
== END ==
LOC: M IRPRO 11:52
PROVIDERS: ATTEND Nurse Practitioner Adult Health
DX: C56.9 Malignant neoplasm of unspecified ovary (principal); R18.0 Malignant ascites

== ENCOUNTER → 2021-08-16 | Outpatient (CLI) | payer MEDICARE ==
[~2021-08-16] MED LIST changes: -FLUC100T PO; +FLUC100T3 PO; +NAPR-837 PO; +OMEP10CASR PO; +OMEP40CA4 PO
[2021-08-16 12:05] VITALS: BP 124/61
== END ==
LOC: M IRPRO 11:10
PROVIDERS: ATTEND Specialist
DX: R18.8 Other ascites (principal); C48.2 Malignant neoplasm of peritoneum, unspecified

== ENCOUNTER 2021-08-19 13:45 | Inpatient (IN) | payer MEDICARE ==
[~2021-08-19] VITALS: Ht 165.1 cm; Wt 78.0 kg
[2021-08-19] MEDS ORDERED: ONDANSETRON 4MG/2ML VIAL IV ONE (14:20)
[2021-08-19] MEDS ORDERED: NS 2,200 ML in IV 1 EA IV ONE (14:25)
[2021-08-19] MEDS ORDERED: cefTRIAXone SOD 2 GM in D5W MINI-BAG PLUS 50 ML IV ONE (14:25)
[2021-08-19 14:56] LABS: BASO % 0.2 % (0.0-1.0); EOS % 0.1 % (0.0-3.0); HEMOGLOBIN 10.2 g/dl (12.0-15.5); LYMPH # 0.8 10^3/uL (1.5-5.0); LYMPH % 4.6 % (24.0-44.0); MEAN CORPUSCULAR HEMOGLOBIN 28.8 pg (27.0-33.0); MEAN CORPUSCULAR HGB CONC 31.9 g/dl (32.0-36.5); MEAN CORPUSCULAR VOLUME 90.4 fl (80.0-96.0); MONO % 5.8 % (2.0-8.0); NEUTROPHILS # 14.7 10^3/uL (1.5-8.5); NEUTROPHILS % 88.8 % (36.0-66.0); PLATELET COUNT, AUTOMATED 404 10^3/uL (150-450); RED BLOOD COUNT 3.54 10^6/uL (4.00-5.40); WHITE BLOOD COUNT 16.5 10^3/uL (4.0-10.0)
[2021-08-19 15:36] LABS: ALBUMIN 1.9 GM/DL (3.2-5.2); BILIRUBIN,DIRECT 0.1 MG/DL (0.0-0.2); BILIRUBIN,TOTAL 0.2 MG/DL (0.2-1.0); CALCIUM LEVEL 8.4 MG/DL (8.5-10.1); CREATININE FOR GFR 1.09 MG/DL (0.55-1.30); GLOMERULAR FILTRATION RATE 55.1 (>51); POTASSIUM SERUM 3.7 MEQ/L (3.5-5.1); TOTAL PROTEIN 5.3 GM/DL (6.4-8.2)
[2021-08-19 15:55] LABS: RSV AMPLIFICATION NEGATIVE (NEGATIVE)
[2021-08-19] MEDS ORDERED: ISOVUE-370 76% 100ML VIAL As Ordered ONE (16:13)
[2021-08-19] MEDS ORDERED: HOME MED LIST COMPLETE! XX SCH (18:40)
[2021-08-19] MEDS ORDERED: DEXTROSE 50% 50 ML SYRINGE IV PRN (20:20)
[2021-08-19] MEDS ORDERED: GLUCOSE 4GM CHEW TABLET PO PRN (20:20)
[2021-08-19] MEDS ORDERED: GLUCAGON INJ 1MG VIAL SC PRN (20:20)
[2021-08-19] MEDS ORDERED: ACETAMINOPHEN TAB 650MG DOSE (2X325MG) PO PRN (20:20)
[2021-08-19] MEDS ORDERED: MORPHINE 2 MG/ML 1ML VIAL (J2270) IV PRN (20:35)
[2021-08-19] MEDS ORDERED: MAGIC MOUTHWASH SUSPENSION BTL SSP PRN (21:15)
[2021-08-19] MEDS: LIDOCAINE 5% (LIDODERM) PATCH TD SCH (21:17)
[2021-08-19] MEDS: NS 1,000 ML IV SCH (21:17)
[2021-08-19] MEDS: GABAPENTIN 300 MG CAP PO SCH (22:16)
[2021-08-19 22:28] VITALS: BP 131/63
[2021-08-19] MEDS: NYSTATIN 100,000 UNITS/GM TOPICAL PWD 15 GM TOP PRN (23:43)
[2021-08-20] MEDS: NS 1,000 ML IV SCH (01:21)
[2021-08-20] MEDS: MORPHINE 4 MG/ML 1ML VIAL/SYRINGE (J2270) IV PRN ×4 (02:59→20:18)
[2021-08-20 04:00] VITALS: BP 100/55
[2021-08-20 07:51] LABS: HEMATOCRIT 28.9 % (36.0-47.0); HEMOGLOBIN 8.7 g/dl (12.0-15.5); MEAN CORPUSCULAR HEMOGLOBIN 28.4 pg (27.0-33.0); MEAN CORPUSCULAR HGB CONC 30.1 g/dl (32.0-36.5); MEAN CORPUSCULAR VOLUME 94.4 fl (80.0-96.0); PLATELET COUNT, AUTOMATED 337 10^3/uL (150-450); RED BLOOD COUNT 3.06 10^6/uL (4.00-5.40)
[2021-08-20 08:06] LABS: BLOOD UREA NITROGEN 10 MG/DL (7-18); CALCIUM LEVEL 7.9 MG/DL (8.5-10.1); CARBON DIOXIDE LEVEL 24 MEQ/L (21-32); CHLORIDE LEVEL 109 MEQ/L (98-107); CREATININE FOR GFR 0.79 MG/DL (0.55-1.30); GLOMERULAR FILTRATION RATE > 60.0 (>51); GLUCOSE, FASTING 91 MG/DL (70-100); SODIUM LEVEL 140 MEQ/L (136-145)
[2021-08-20] MEDS: **NOTE PATIENT COMMENT** MISC XX SCH (08:38)
[2021-08-20] MEDS: GABAPENTIN 300 MG CAP PO SCH ×2 (08:38→20:13)
[2021-08-20] MEDS: OMEPRAZOLE 20MG CAP PO SCH (08:38)
[2021-08-20] MEDS: ENOXAPARIN 40MG/0.4ML SYRINGE (J1650 PER 10MG) SC SCH (08:38)
[2021-08-20 09:22] LABS: HEMOGLOBIN A1c 8.4 %
[2021-08-20] MEDS: SODIUM CHLORIDE 0.9% INJ 10 ML SYR IV PRN ×2 (11:16→14:57)
[2021-08-20] MEDS ORDERED: DEXTROSE 50% 50 ML SYRINGE IV PRN (12:45)
[2021-08-20] MEDS ORDERED: GLUCOSE 4GM CHEW TABLET PO PRN (12:45)
[2021-08-20] MEDS ORDERED: GLUCAGON INJ 1MG VIAL SC PRN (12:45)
[2021-08-20 13:34] VITALS: BP 134/66
[2021-08-20] MEDS: cefTRIAXone SOD 1 GM in D5W MINI-BAG PLUS 50 ML IV SCH (13:43)
[2021-08-20] MEDS: HumaLOG INSULIN (NovoLOG) PER UNIT SC SCH ×3 (13:43→20:18)
[2021-08-20 19:30] VITALS: BP 107/63
[2021-08-20] MEDS: LIDOCAINE 5% (LIDODERM) PATCH TD SCH (20:18)
[2021-08-21] MEDS: MORPHINE 4 MG/ML 1ML VIAL/SYRINGE (J2270) IV PRN ×6 (00:06→22:25)
[2021-08-21] MEDS: ONDANSETRON 4MG/2ML VIAL IV PRN ×3 (03:33→17:58)
[2021-08-21 05:13] VITALS: BP 115/77
[2021-08-21 07:05] LABS: BASO % 0.3 % (0.0-1.0); EOS % 0.3 % (0.0-3.0); HEMATOCRIT 31.6 % (36.0-47.0); HEMOGLOBIN 9.9 g/dl (12.0-15.5); LYMPH # 0.8 10^3/uL (1.5-5.0); LYMPH % 7.3 % (24.0-44.0); MEAN CORPUSCULAR HEMOGLOBIN 28.6 pg (27.0-33.0); MEAN CORPUSCULAR HGB CONC 31.3 g/dl (32.0-36.5); MEAN CORPUSCULAR VOLUME 91.3 fl (80.0-96.0); MONO # 1.1 10^3/uL (0.0-0.8); MONO % 10.4 % (2.0-8.0); NEUTROPHILS # 8.6 10^3/uL (1.5-8.5); NEUTROPHILS % 81.2 % (36.0-66.0); PLATELET COUNT, AUTOMATED 369 10^3/uL (150-450); RED BLOOD COUNT 3.46 10^6/uL (4.00-5.40); WHITE BLOOD COUNT 10.5 10^3/uL (4.0-10.0)
[2021-08-21 07:26] LABS: BLOOD UREA NITROGEN 10 MG/DL (7-18); CARBON DIOXIDE LEVEL 20 MEQ/L (21-32); CHLORIDE LEVEL 107 MEQ/L (98-107); CREATININE FOR GFR 0.88 MG/DL (0.55-1.30); GLOMERULAR FILTRATION RATE > 60.0 (>51); GLUCOSE, FASTING 143 MG/DL (70-100); POTASSIUM SERUM 4.1 MEQ/L (3.5-5.1); SODIUM LEVEL 137 MEQ/L (136-145)
[2021-08-21] MEDS: GABAPENTIN 300 MG CAP PO SCH ×2 (08:15→20:01)
[2021-08-21] MEDS: ENOXAPARIN 40MG/0.4ML SYRINGE (J1650 PER 10MG) SC SCH (08:16)
[2021-08-21] MEDS: OMEPRAZOLE 20MG CAP PO SCH (08:16)
[2021-08-21] MEDS: HumaLOG INSULIN (NovoLOG) PER UNIT SC SCH ×4 (08:17→20:02)
[2021-08-21] MEDS: SODIUM CHLORIDE 0.9% INJ 10 ML SYR IV SCH (08:18)
[2021-08-21] MEDS: **NOTE PATIENT COMMENT** MISC XX SCH (08:18)
[2021-08-21] MEDS: cefTRIAXone SOD 1 GM in D5W MINI-BAG PLUS 50 ML IV SCH (13:01)
[2021-08-21 13:33] VITALS: BP 124/81
[2021-08-21 17:57] LABS: SOURCE, BODY FLUID ALBUMIN ASCITES; SOURCE, BODY FLUID GLUCOSE ASCITES; SOURCE, BODY FLUID TOT PROTEIN ASCITES; TOTAL PROTEIN, BODY FLUID 3.4 G/DL (NOT ESTABLISHED)
[2021-08-21] MEDS: KETOROLAC 30 MG/ML 1ML VIAL IV PRN (17:58)
[2021-08-21] MEDS: NYSTATIN 100,000 UNITS/GM TOPICAL PWD 15 GM TOP PRN (17:58)
[2021-08-21] MEDS: SODIUM CHLORIDE 0.9% INJ 10 ML SYR IV PRN (17:59)
[2021-08-21 18:01] LABS: SPEC. GRAVITY BODY FLUIDS 1.022 (NOT ESTABLISHED)
[2021-08-21 18:04] LABS: APPEARANCE, BODY FLUID CLEAR (CLEAR); ASCITES FL COLOR PALE YELLOW (COLORLESS); SOURCE, BODY FLUID ASCITES
[2021-08-21 19:18] VITALS: BP 90/60
[2021-08-21] MEDS: LIDOCAINE 5% (LIDODERM) PATCH TD SCH (20:02)
[2021-08-22] VITALS (18 sets, daily range): BP systolic 93–109; BP diastolic 51–68
[2021-08-22] MEDS: SODIUM CHLORIDE 0.9% INJ 10 ML SYR IV PRN (02:08)
[2021-08-22] MEDS: ONDANSETRON 4MG/2ML VIAL IV PRN (02:09)
[2021-08-22] MEDS: PROCHLORPERAZINE 10MG/2ML VIAL (J0780 PER 1) IV PRN ×3 (03:33→23:39)
[2021-08-22 06:06] LABS: BASO % 0.2 % (0.0-1.0); EOS % 0.3 % (0.0-3.0); HEMATOCRIT 32.5 % (36.0-47.0); HEMOGLOBIN 10.2 g/dl (12.0-15.5); LYMPH # 0.8 10^3/uL (1.5-5.0); LYMPH % 6.5 % (24.0-44.0); MEAN CORPUSCULAR HEMOGLOBIN 28.4 pg (27.0-33.0); MEAN CORPUSCULAR HGB CONC 31.4 g/dl (32.0-36.5); MEAN CORPUSCULAR VOLUME 90.5 fl (80.0-96.0); MONO # 0.9 10^3/uL (0.0-0.8); NEUTROPHILS # 9.8 10^3/uL (1.5-8.5); NEUTROPHILS % 84.5 % (36.0-66.0); PLATELET COUNT, AUTOMATED 349 10^3/uL (150-450); RED BLOOD COUNT 3.59 10^6/uL (4.00-5.40); WHITE BLOOD COUNT 11.5 10^3/uL (4.0-10.0)
[2021-08-22 06:22] LABS: CALCIUM LEVEL 8.1 MG/DL (8.5-10.1); CREATININE FOR GFR 1.04 MG/DL (0.55-1.30); GLOMERULAR FILTRATION RATE 58.1 (>51); POTASSIUM SERUM 4.8 MEQ/L (3.5-5.1)
[2021-08-22] MEDS: ENOXAPARIN 40MG/0.4ML SYRINGE (J1650 PER 10MG) SC SCH (08:00)
[2021-08-22] MEDS: OMEPRAZOLE 20MG CAP PO SCH (08:00)
[2021-08-22] MEDS: GABAPENTIN 300 MG CAP PO SCH ×2 (08:00→20:03)
[2021-08-22] MEDS: HumaLOG INSULIN (NovoLOG) PER UNIT SC SCH ×4 (08:01→19:47)
[2021-08-22] MEDS: NYSTATIN 100,000 UNITS/GM TOPICAL PWD 15 GM TOP PRN (08:02)
[2021-08-22] MEDS: **NOTE PATIENT COMMENT** MISC XX SCH (08:02)
[2021-08-22] MEDS: SODIUM CHLORIDE 0.9% INJ 10 ML SYR IV SCH (08:02)
[2021-08-22] MEDS: KETOROLAC 30 MG/ML 1ML VIAL IV PRN (08:03)
[2021-08-22] MEDS: MORPHINE 4 MG/ML 1ML VIAL/SYRINGE (J2270) IV PRN ×2 (16:20→20:11)
[2021-08-22] MEDS: LIDOCAINE 5% (LIDODERM) PATCH TD SCH (20:03)
[2021-08-23 05:51] VITALS: BP 92/54
[2021-08-23 06:53] LABS: BASO % 0.3 % (0.0-1.0); EOS # 0.1 10^3/uL (0.0-0.5); EOS % 1.1 % (0.0-3.0); HEMATOCRIT 24.9 % (36.0-47.0); LYMPH # 0.7 10^3/uL (1.5-5.0); LYMPH % 9.6 % (24.0-44.0); MEAN CORPUSCULAR HEMOGLOBIN 28.5 pg (27.0-33.0); MEAN CORPUSCULAR HGB CONC 31.3 g/dl (32.0-36.5); MEAN CORPUSCULAR VOLUME 90.9 fl (80.0-96.0); MONO # 0.7 10^3/uL (0.0-0.8); MONO % 9.5 % (2.0-8.0); PLATELET COUNT, AUTOMATED 308 10^3/uL (150-450); RED BLOOD COUNT 2.74 10^6/uL (4.00-5.40); WHITE BLOOD COUNT 7.6 10^3/uL (4.0-10.0)
[2021-08-23 06:57] LABS: HEMOGLOBIN 7.8 g/dl (12.0-15.5)
[2021-08-23 07:16] LABS: BLOOD UREA NITROGEN 13 MG/DL (7-18); CALCIUM LEVEL 7.7 MG/DL (8.5-10.1); CARBON DIOXIDE LEVEL 22 MEQ/L (21-32); CHLORIDE LEVEL 108 MEQ/L (98-107); CREATININE FOR GFR 0.82 MG/DL (0.55-1.30); GLOMERULAR FILTRATION RATE > 60.0 (>51); GLUCOSE, FASTING 104 MG/DL (70-100); POTASSIUM SERUM 4.1 MEQ/L (3.5-5.1); SODIUM LEVEL 137 MEQ/L (136-145)
[2021-08-23] MEDS: OMEPRAZOLE 20MG CAP PO SCH (08:33)
[2021-08-23] MEDS: GABAPENTIN 300 MG CAP PO SCH (08:33)
[2021-08-23] MEDS: HumaLOG INSULIN (NovoLOG) PER UNIT SC SCH ×2 (08:33→12:00)
[2021-08-23] MEDS: **NOTE PATIENT COMMENT** MISC XX SCH (08:34)
[2021-08-23] MEDS: SODIUM CHLORIDE 0.9% INJ 10 ML SYR IV SCH (08:34)
[2021-08-23] MEDS: GASTROGRAFIN SOLUTION 30ML PO SCH ×2 (09:54→10:09)
[2021-08-23] MEDS ORDERED: ISOVUE-370 76% 100ML VIAL As Ordered ONE (12:17)
[2021-08-23 14:00] VITALS: BP 90/52
[2021-08-23 14:01] VITALS: BP 90/52
[2021-08-23 14:16] VITALS: BP 96/59
[2021-08-23 16:40] VITALS: BP 107/53
[2021-08-23] MEDS ORDERED: ACET-683 PO (16:47)
[2021-08-23] MEDS ORDERED: ONDA4TAB6 PO (16:47)
[2021-08-23 17:38] LABS: HEMATOCRIT 32.2 % (36.0-47.0); HEMOGLOBIN 10.2 g/dl (12.0-15.5)
== END 2021-08-23 18:00 | disposition home or self-care (01) | DRG 186 ==
LOC: M ED 13:45 → M ED INP 20:47 → ENRESERV 21:36 → M 4MAIN 22:40
PROVIDERS: ADMIT Family Medicine; ATTEND Family Medicine
PROC: 0W9G3ZZ Drainage of Peritoneal Cavity, Percutaneous Approach (ICD-10-PCS; 2021-08-21)
PROC: 0W9G3ZZ Drainage of Peritoneal Cavity, Percutaneous Approach (ICD-10-PCS; principal; 2021-08-23 15:00)
DX: J90 Pleural effusion, not elsewhere classified (principal); U07.1 COVID-19; R18.0 Malignant ascites; E46 Unspecified protein-calorie malnutrition; C48.2 Malignant neoplasm of peritoneum, unspecified; E86.0 Dehydration; R11.2 Nausea with vomiting, unspecified; R19.7 Diarrhea, unspecified; K63.89 Other specified diseases of intestine; E11.42 Type 2 diabetes mellitus with diabetic polyneuropathy; M54.9 Dorsalgia, unspecified; Z79.899 Other long term (current) drug therapy; Z88.1 Allergy status to other antibiotic agents; Z88.2 Allergy status to sulfonamides; Z88.8 Allergy status to other drugs, medicaments and biological substances; Z91.040 Latex allergy status; I10 Essential (primary) hypertension; E78.5 Hyperlipidemia, unspecified; E11.319 Type 2 diabetes mellitus with unspecified diabetic retinopathy without macular edema; J44.9 Chronic obstructive pulmonary disease, unspecified

== ENCOUNTER 2021-08-28 23:59 | Observation (INO) | payer MEDICARE ==
[~2021-08-28] VITALS: Ht 165.1 cm; Wt 74.1 kg
[~2021-08-28 23:59] MED LIST changes: -ACET-897 PO; -NAPR500T6 PO; -NYST1POW9 TOP
[2021-08-29] MEDS ORDERED: cefTRIAXone SOD 2 GM in D5W MINI-BAG PLUS 50 ML IV ONE (02:05)
[2021-08-29 02:12] LABS: BASO % 0.2 % (0.0-1.0); EOS # 0.1 10^3/uL (0.0-0.5); EOS % 0.7 % (0.0-3.0); HEMATOCRIT 37.8 % (36.0-47.0); HEMOGLOBIN 12.1 g/dl (12.0-15.5); LYMPH # 1.1 10^3/uL (1.5-5.0); LYMPH % 6.9 % (24.0-44.0); MEAN CORPUSCULAR HEMOGLOBIN 28.2 pg (27.0-33.0); MEAN CORPUSCULAR VOLUME 88.1 fl (80.0-96.0); MONO # 1.6 10^3/uL (0.0-0.8); MONO % 9.7 % (2.0-8.0); NEUTROPHILS % 81.7 % (36.0-66.0); PLATELET COUNT, AUTOMATED 367 10^3/uL (150-450); RED BLOOD COUNT 4.29 10^6/uL (4.00-5.40); WHITE BLOOD COUNT 15.9 10^3/uL (4.0-10.0)
[2021-08-29 02:15] LABS: INR 1.12; PROTHROMBIN TIME 14.8 SECONDS (12.7-14.5)
[2021-08-29 02:16] LABS: PARTIAL THROMBOPLASTIN TIME 27.7 SECONDS (25.9-37.0)
[2021-08-29] MEDS ORDERED: LIDOCAINE 5% (LIDODERM) PATCH TD ONE (02:25)
[2021-08-29 02:48] LABS: ALBUMIN 1.8 GM/DL (3.2-5.2); ALT/SGPT 12 U/L (12-78); BILIRUBIN,DIRECT 0.1 MG/DL (0.0-0.2); BILIRUBIN,TOTAL 0.3 MG/DL (0.2-1.0); BLOOD UREA NITROGEN 12 MG/DL (7-18); CALCIUM LEVEL 8.3 MG/DL (8.5-10.1); CARBON DIOXIDE LEVEL 24 MEQ/L (21-32); CHLORIDE LEVEL 103 MEQ/L (98-107); CREATININE FOR GFR 0.94 MG/DL (0.55-1.30); GLOMERULAR FILTRATION RATE > 60.0 (>51); GLUCOSE, FASTING 146 MG/DL (70-100); LIPASE 134 U/L (73-393); POTASSIUM SERUM 4.3 MEQ/L (3.5-5.1); SODIUM LEVEL 136 MEQ/L (136-145); TOTAL PROTEIN 5.5 GM/DL (6.4-8.2)
[2021-08-29] MEDS ORDERED: ACET-897 PO (05:19)
[2021-08-29] MEDS ORDERED: MAGICMW SSP (05:19)
[2021-08-29] MEDS ORDERED: NAPR500T6 PO (05:19)
[2021-08-29] MEDS ORDERED: GABA-282 PO (05:19)
[2021-08-29] MEDS ORDERED: NYST1POW9 TOP (05:20)
[2021-08-29] MEDS ORDERED: HOME MED LIST COMPLETE! XX SCH (05:20)
[2021-08-29] MEDS ORDERED: ONDANSETRON 4MG/2ML VIAL IV ONE (05:25)
[2021-08-29] MEDS ORDERED: DEXTROSE 50% 50 ML SYRINGE IV PRN (06:35)
[2021-08-29] MEDS ORDERED: PERCOCET 5MG/325MG TAB PO PRN (06:35)
[2021-08-29] MEDS ORDERED: METOCLOPRAMIDE INJ 10MG/2ML VIAL (J2765 PER 1) IV PRN (06:35)
[2021-08-29] MEDS ORDERED: GLUCOSE 4GM CHEW TABLET PO PRN (06:35)
[2021-08-29] MEDS ORDERED: GLUCAGON INJ 1MG VIAL SC PRN (06:35)
[2021-08-29] MEDS ORDERED: HYDROMORPHONE HCL 0.5 MG/ 0.5 ML SYRINGE (J1170 PER 1) IV PRN (06:40)
[2021-08-29] MEDS: HumaLOG INSULIN (NovoLOG) PER UNIT SC SCH ×3 (07:48→18:32)
[2021-08-29] MEDS ORDERED: fentaNYL 12 MCG/HR PATCH TOP SCH (08:00)
[2021-08-29] MEDS: HEPARIN SOD (PORCINE) 5000UNITS/ML 1ML VIAL/SYRINGE SC SCH ×2 (13:58→21:34)
[2021-08-29] MEDS ORDERED: **NOTE PATIENT COMMENT** MISC XX SCH (14:00)
[2021-08-29 16:25] VITALS: BP 154/83
[2021-08-29 17:00] VITALS: BP 155/83
[2021-08-29 17:30] VITALS: BP 159/85
[2021-08-29 17:34] LABS: APPEARANCE, BODY FLUID HAZY (CLEAR); ASCITES FL COLOR PALE YELLOW (COLORLESS); SOURCE, BODY FLUID ASCITES; SPEC. GRAVITY BODY FLUIDS 1.019 (NOT ESTABLISHED)
[2021-08-29 18:00] VITALS: BP 115/69
[2021-08-29 18:51] LABS: SOURCE, BODY FLUID ALBUMIN ASCITES; SOURCE, BODY FLUID GLUCOSE ASCITES; SOURCE, BODY FLUID TOT PROTEIN ASCITES; TOTAL PROTEIN, BODY FLUID 2.7 G/DL (NOT ESTABLISHED)
[2021-08-29 19:47] VITALS: BP 111/69
[2021-08-30] MEDS: HYDROMORPHONE HCL 0.5 MG/ 0.5 ML SYRINGE (J1170 PER 1) IV PRN ×3 (01:09→10:18)
[2021-08-30] MEDS: HEPARIN SOD (PORCINE) 5000UNITS/ML 1ML VIAL/SYRINGE SC SCH (05:03)
[2021-08-30 05:37] VITALS: BP 102/65
[2021-08-30 05:43] LABS: BASO % 0.2 % (0.0-1.0); EOS # 0.1 10^3/uL (0.0-0.5); EOS % 0.4 % (0.0-3.0); HEMATOCRIT 36.8 % (36.0-47.0); HEMOGLOBIN 11.4 g/dl (12.0-15.5); LYMPH # 1.1 10^3/uL (1.5-5.0); MEAN CORPUSCULAR HEMOGLOBIN 27.7 pg (27.0-33.0); MEAN CORPUSCULAR VOLUME 89.5 fl (80.0-96.0); MONO # 1.1 10^3/uL (0.0-0.8); MONO % 9.3 % (2.0-8.0); NEUTROPHILS # 9.4 10^3/uL (1.5-8.5); NEUTROPHILS % 80.2 % (36.0-66.0); PLATELET COUNT, AUTOMATED 306 10^3/uL (150-450); RED BLOOD COUNT 4.11 10^6/uL (4.00-5.40); WHITE BLOOD COUNT 11.7 10^3/uL (4.0-10.0)
[2021-08-30 06:11] LABS: ALBUMIN 1.6 GM/DL (3.2-5.2); ALT/SGPT 10 U/L (12-78); BILIRUBIN,TOTAL 0.3 MG/DL (0.2-1.0); BLOOD UREA NITROGEN 12 MG/DL (7-18); CALCIUM LEVEL 8.1 MG/DL (8.5-10.1); CARBON DIOXIDE LEVEL 26 MEQ/L (21-32); CHLORIDE LEVEL 101 MEQ/L (98-107); CREATININE FOR GFR 0.99 MG/DL (0.55-1.30); GLOMERULAR FILTRATION RATE > 60.0 (>51); GLUCOSE, FASTING 124 MG/DL (70-100); POTASSIUM SERUM 4.2 MEQ/L (3.5-5.1); SODIUM LEVEL 135 MEQ/L (136-145)
[2021-08-30] MEDS: HumaLOG INSULIN (NovoLOG) PER UNIT SC SCH ×2 (08:35→12:00)
[2021-08-30] MEDS ORDERED: OXYC1TAB23 PO (14:12)
[2021-08-30] MEDS ORDERED: METF10004 PO (14:16)
[2021-09-01] MEDS ORDERED: FENTANYL REMOVAL DOCUMENTATION MISC XX SCH (08:00)
== END 2021-08-30 14:47 | disposition home or self-care (01) ==
LOC: M ED 23:59 → UNDOADMOB 08-29 → M ED INP 08-29 → M MSPAV 08-29 17:50 → M ED INP 08-29 17:50 → UNDODISOB 08-30 14:47 → M ED INP 09-12 12:38 → M MSPAV 09-12 12:38
PROVIDERS: ADMIT Internal Medicine; ATTEND Internal Medicine
DX: C48.2 Malignant neoplasm of peritoneum, unspecified (principal); R18.0 Malignant ascites; E11.9 Type 2 diabetes mellitus without complications; Z79.899 Other long term (current) drug therapy; Z88.8 Allergy status to other drugs, medicaments and biological substances; Z86.16 Personal history of COVID-19; Z91.040 Latex allergy status; Z88.2 Allergy status to sulfonamides
CPT/HCPCS: 36415; 49083; 80048; 80053; 80076; 81001; 82042; 82140; 82945; 83605; 83690; 84157; 84315; 85025; 85610; 85730; 87040; 87070; 87205; 89051; 93005; 93041; 96365; 96372; 96375; 96376; 99285; G0378; J0696; J1170; J1644; J1815; J2405; J2765

== ENCOUNTER → 2021-08-28 | Outpatient (CLI) | payer MEDICARE ==
[~2021-08-28] MED LIST changes: +ACET-683 PO; +ACET-897 PO; +NAPR500T6 PO; +NYST1POW9 TOP
[2021-08-28 17:33] LABS: HEMOGLOBIN 12.7 g/dl (12.0-15.5); MEAN CORPUSCULAR HEMOGLOBIN 27.9 pg (27.0-33.0); MEAN CORPUSCULAR VOLUME 90.1 fl (80.0-96.0); PLATELET COUNT, AUTOMATED 390 10^3/uL (150-450); RED BLOOD COUNT 4.55 10^6/uL (4.00-5.40)
[2021-08-28 17:43] LABS: BLOOD UREA NITROGEN 12 MG/DL (7-18); CALCIUM LEVEL 8.5 MG/DL (8.5-10.1); CARBON DIOXIDE LEVEL 27 MEQ/L (21-32); CHLORIDE LEVEL 100 MEQ/L (98-107); CREATININE FOR GFR 0.99 MG/DL (0.55-1.30); GLOMERULAR FILTRATION RATE > 60.0 (>51); GLUCOSE, FASTING 135 MG/DL (70-100); POTASSIUM SERUM 4.5 MEQ/L (3.5-5.1); SODIUM LEVEL 136 MEQ/L (136-145)
== END ==
LOC: M PLALAB 14:42
PROVIDERS: ATTEND Student in an Organized Health Care Education/Training Program
DX: R11.11 Vomiting without nausea (principal); Z09 Encounter for follow-up examination after completed treatment for conditions other than malignant neoplasm

== ENCOUNTER → 2021-09-07 | Outpatient (CLI) | payer MEDICARE ==
[~2021-09-07] MED LIST changes: +ACET-897 PO; +NAPR500T6 PO; +NYST1POW9 TOP
[2021-09-07 09:09] VITALS: BP 106/64
== END ==
LOC: M IRPRO 08:16
PROVIDERS: ATTEND Student in an Organized Health Care Education/Training Program
DX: C48.2 Malignant neoplasm of peritoneum, unspecified (principal); R18.0 Malignant ascites

== ENCOUNTER → 2021-09-15 | Outpatient (CLI) | payer MEDICARE ==
[2021-09-15 14:38] VITALS: BP 94/58
== END ==
LOC: M IRPRO 13:25
PROVIDERS: ATTEND Student in an Organized Health Care Education/Training Program
DX: R18.8 Other ascites (principal)

== ENCOUNTER 2021-09-23 12:01 | Inpatient (IN) | payer MEDICARE ==
[~2021-09-23] VITALS: Ht 165.1 cm; Wt 70.0 kg
[2021-09-23] MEDS ORDERED: NS 500 ML IV ONE ×2 (12:30→14:05)
[2021-09-23] MEDS ORDERED: ONDANSETRON 4MG/2ML VIAL IV ONE (12:30)
[2021-09-23 13:15] LABS: BASO % 0.1 % (0.0-1.0); EOS % 0.2 % (0.0-3.0); HEMATOCRIT 39.7 % (36.0-47.0); HEMOGLOBIN 12.7 g/dl (12.0-15.5); LYMPH % 5.8 % (24.0-44.0); MEAN CORPUSCULAR VOLUME 84.5 fl (80.0-96.0); MONO % 5.7 % (2.0-8.0); NEUTROPHILS # 14.8 10^3/uL (1.5-8.5); NEUTROPHILS % 87.2 % (36.0-66.0); PLATELET COUNT, AUTOMATED 318 10^3/uL (150-450)
[2021-09-23] MEDS ORDERED: OMEP40CA5 PO (13:31)
[2021-09-23] MEDS ORDERED: PERCOCET PO (13:31)
[2021-09-23] MEDS ORDERED: METF-877 PO (13:31)
[2021-09-23] MEDS ORDERED: PROC10TA5 PO (13:31)
[2021-09-23] MEDS ORDERED: HOME MED LIST COMPLETE! XX SCH (13:45)
[2021-09-23 13:46] LABS: RSV AMPLIFICATION NEGATIVE (NEGATIVE)
[2021-09-23 13:46] LABS: ALBUMIN 1.5 GM/DL (3.2-5.2); ALT/SGPT 12 U/L (12-78); BILIRUBIN,DIRECT < 0.1 MG/DL (0.0-0.2); BILIRUBIN,TOTAL 0.3 MG/DL (0.2-1.0); BLOOD UREA NITROGEN 20 MG/DL (7-18); CALCIUM LEVEL 8.5 MG/DL (8.5-10.1); CARBON DIOXIDE LEVEL 26 MEQ/L (21-32); CHLORIDE LEVEL 95 MEQ/L (98-107); CREATININE FOR GFR 1.15 MG/DL (0.55-1.30); FREE T4 1.28 NG/DL (0.76-1.46); GLOMERULAR FILTRATION RATE 51.8 (>51); GLUCOSE, FASTING 130 MG/DL (70-100); LIPASE 112 U/L (73-393); POTASSIUM SERUM 5.4 MEQ/L (3.5-5.1); SODIUM LEVEL 128 MEQ/L (136-145); TOTAL PROTEIN 5.3 GM/DL (6.4-8.2)
[2021-09-23] MEDS ORDERED: ATROPINE SULFATE 1% OP SOLN 2 ML BTL SL PRN (15:20)
[2021-09-23] MEDS ORDERED: ONDANSETRON 4MG/2ML VIAL IV PRN (15:20)
[2021-09-23] MEDS ORDERED: FLEET ENEMA PR PRN (15:20)
[2021-09-23] MEDS ORDERED: ACETAMINOPHEN 650 MG SUPP PR PRN (15:20)
[2021-09-23] MEDS: MORPHINE 2 MG/ML 1ML VIAL (J2270) IV PRN ×3 (15:44→23:58)
[2021-09-23] MEDS ORDERED: LIDOCAINE 5% (LIDODERM) PATCH TD PRN (16:50)
[2021-09-23 17:46] VITALS: BP 101/66
[2021-09-23] MEDS: NYSTATIN 100,000 UNITS/GM TOPICAL PWD 15 GM TOP SCH (20:11)
[2021-09-23] MEDS ORDERED: **NOTE PATIENT COMMENT** MISC XX SCH (21:00)
[2021-09-24] MEDS: LORazepam 2 MG/ML VIAL IV PRN ×2 (00:06→10:53)
[2021-09-24] MEDS ORDERED: LORazepam 2 MG/ML VIAL As Ordered ONE (00:06)
[2021-09-24] MEDS: NYSTATIN 100,000 UNITS/GM TOPICAL PWD 15 GM TOP SCH (07:51)
[2021-09-24] MEDS ORDERED: ATIV1TAB10 PO (12:32)
[2021-09-24] MEDS ORDERED: LIDO5TD TD (12:32)
[2021-09-24] MEDS ORDERED: HYOS125TA PO (12:32)
[2021-09-24] MEDS ORDERED: MORP1SOL5 PO (12:32)
[2021-09-24] MEDS: MORPHINE 2 MG/ML 1ML VIAL (J2270) IV PRN (15:39)
== END 2021-09-24 17:30 | disposition home or self-care (01) | DRG 951 ==
LOC: M ED 12:01 → M ED INP 15:19 → M MS5PR 19:25
PROVIDERS: ADMIT Internal Medicine; ATTEND Internal Medicine
DX: Z51.5 Encounter for palliative care (principal); C48.2 Malignant neoplasm of peritoneum, unspecified; R18.0 Malignant ascites; C78.6 Secondary malignant neoplasm of retroperitoneum and peritoneum; J90 Pleural effusion, not elsewhere classified; E11.9 Type 2 diabetes mellitus without complications; Z92.21 Personal history of antineoplastic chemotherapy; R62.7 Adult failure to thrive; F17.200 Nicotine dependence, unspecified, uncomplicated; Z66 Do not resuscitate; Z20.822 Contact with and (suspected) exposure to COVID-19; Z79.84 Long term (current) use of oral hypoglycemic drugs; Z79.899 Other long term (current) drug therapy; Z88.2 Allergy status to sulfonamides; Z88.8 Allergy status to other drugs, medicaments and biological substances

== ENCOUNTER → 2021-09-25 | Outpatient (CLI) | payer MEDICARE ==
[~2021-09-25] MED LIST changes: +ATIV1TAB10 PO; +METF-877 PO; +OMEP40CA5 PO; +PERCOCET PO
[2021-09-25 14:15] VITALS: BP 90/58
== END ==
LOC: M IRPRO 13:27
PROVIDERS: ATTEND Student in an Organized Health Care Education/Training Program
DX: C48.2 Malignant neoplasm of peritoneum, unspecified (principal); R18.0 Malignant ascites

== ENCOUNTER → 2021-10-02 | Outpatient (CLI) | payer MEDICARE ==
[2021-10-02 15:00] VITALS: BP 97/60
== END ==
LOC: M IRPRO 14:09
PROVIDERS: ATTEND Student in an Organized Health Care Education/Training Program
DX: C48.2 Malignant neoplasm of peritoneum, unspecified (principal); R18.0 Malignant ascites